=== PATIENT | male | born 1990 | race Caucasian/White ===

== ENCOUNTER 2017-12-26 21:52 | Emergency (ER) | payer OTHER ==
[2017-12-26 22:10] VITALS: TEMP 98.4
[2017-12-26] MEDS ORDERED: IPRATROPIUM-ALBUTEROL 3 ML NEB INHALATION STA (23:02)
[2017-12-26] MEDS ORDERED: methylPREDNISolone SOD SUCCI 125 MG/2 ML VIAL IM ONE (23:02)
--- NOTE | 2017-12-26 23:18 | ED ---
SOB HPI - General Chief Complaint: Shortness of Breath Stated Complaint: SOB Time Seen by Provider: 12/26/17 22:16 Source: patient Mode of arrival: ambulatory Limitations: no limitations - History of Present Illness Initial Comments: 27-year-old male patient with past medical history significant for asthma presents to the emergency department today for evaluation of increased shortness of breath. Patient states that he started having increased wheezing, shortness of breath, and cough yesterday. Patient states that throughout the day today has seemed to have worsened. Patient states he did do 3 nebulizer breathing treatment. The day today did not improve his symptoms much. He denies any fevers or chills with this. Denies any sputum production with his cough. States he does smoke up to a pack a day but has had decreased smoking over the last 2 days. Denies any chest pain, dizziness, weakness, rash, nasal congestion, sore throat, or ear pain. Patient denies any recent abdominal pain , nausea, vomiting, diarrhea, constipation, back pain, numbness, tingling, hematuria, dysuria, urinary urgency, urinary frequency, headache, visual changes , or any other complaints. - Related Data Home Medications Medication Instructions Recorded Confirmed Albuterol Nebulized [Ventolin 2.5 mg INHALATION RT-Q6H PRN 12/26/17 12/26/17 Nebulized] Previous Rx's Medication Instructions Recorded Albuterol Sulfate [Proair Hfa] 1 - 2 puff INHALATION Q6HR PRN #1 12/27/17 inhaler Ipratropium-Albuterol Nebulize 3 ml INHALATION Q4H PRN #30 neb 12/27/17 [Duoneb 0.5 mg-3 mg/3 ml Soln] predniSONE 50 mg PO DAILY #5 tablet 12/27/17 Allergies Allergy/AdvReac Type Severity Reaction Status Date / Time No Known Allergies Allergy Verified 12/26/17 22:17 Review of Systems ROS Statement: Those systems with pertinent positive or pertinent negative responses have been documented in the HPI. ROS Other: All systems not noted in ROS Statement are negative. Past Medical History Past Medical History: Asthma History of Any Multi-Drug Resistant Organisms: None Reported Past Surgical History: No Surgical Hx Reported Past Psychological History: No Psychological Hx Reported Smoking Status: Current every day smoker Past Alcohol Use History: None Reported Past Drug Use History: None Reported General Exam Limitations: no limitations General appearance: alert, in no apparent distress, other (This is a well- developed, well-nourished adult male patient in no acute distress. Vital signs upon presentation are temperature 98.4F, pulse 92, respirations 16, blood pressure 177/101, pulse ox 100% on room air.) Eye exam: Present: normal appearance, PERRL, EOMI. Absent: scleral icterus, conjunctival injection, periorbital swelling ENT exam: Present: normal exam, normal oropharynx, mucous membranes moist Respiratory exam: Present: wheezes (There is diffuse expiratory wheezing to all posterior lung garcia.). Absent: normal lung sounds bilaterally, respiratory distress, rales, rhonchi, stridor Cardiovascular Exam: Present: regular rate, normal rhythm, normal heart sounds. Absent: systolic murmur, diastolic murmur, rubs, gallop, clicks GI/Abdominal exam: Present: soft, normal bowel sounds. Absent: distended, tenderness, guarding, rebound, rigid Neurological exam: Present: alert, oriented X3, CN II-XII intact Psychiatric exam: Present: normal affect, normal mood Skin exam: Present: warm, dry, intact, normal color. Absent: rash Course Vital Signs 12/26/17 12/26/17 12/26/17 22:06 23:17 23:37 Temperature 98.4 F Pulse Rate 92 88 90 Respiratory 16 Rate Blood Pressure 177/101 O2 Sat by Pulse 100 Oximetry 12/27/17 00:17 Temperature Pulse Rate 98 Respiratory 20 Rate Blood Pressure 155/97 O2 Sat by Pulse 99 Oximetry Medical Decision Making - Medical Decision Making 27-year-old male patient with past medical history significant for asthma presented to the emergency department today for evaluation of increased wheezing and shortness of breath since yesterday. Did perform chest x-ray showed no acute cardio pulmonary process. Physical examination did reveal diffuse expiratory wheezing to all posterior lung garcia. Patient is also somewhat hypertensive. Patient did receive albuterol breathing treatment and intramuscular Solu-Medrol here in the department. Upon reevaluation patient symptoms are significantly improved. Blood pressure did decrease to 150s over 90s. He'll be discharged home at this time with prescription for prednisone, albuterol puffer and nebulizer treatments. He does have a nebulizer machine at home which is out of his medication. He is instructed to follow-up with the primary care physician for further evaluation of his blood pressure. [facility] was [facility]. Return parameters discussed in detail. He verbalizes understanding and agrees with this plan. - Radiology Data Radiology results: report reviewed, image reviewed Two-view x-ray of the chest is obtained. Heart mediastinum are normal. Lungs are clear. Diaphragm is normal. Bony thorax is intact. Impression by Dr. Cornelius shows normal chest. Disposition Clinical Impression: Asthma exacerbation Disposition: HOME SELF-CARE Condition: Good Instructions: Asthma (ED), How to Stop Smoking (ED) Additional Instructions: Complete steroid prescription in full. Use nebulizer every 4 hours. Follow up with the primary care physician for recheck in 1-2 days. Avoid smoking. Return immediately for any new, worsening, or concerning symptoms. Prescriptions: Albuterol Sulfate [Proair Hfa] 1 - 2 puff INHALATION Q6HR PRN #1 inhaler PRN Reason: Shortness Of Breath Ipratropium-Albuterol Nebulize [Duoneb 0.5 mg-3 mg/3 ml Soln] 3 ml INHALATION Q4H PRN #30 neb PRN Reason: wheezing/shortness of breath predniSONE 50 mg PO DAILY #5 tablet Is patient prescribed a controlled substance at d/c from ED?: No Referrals: [facility] [NON-STAFF] - 1-2 days Time of Disposition: 00:37
[2017-12-27 00:21] VITALS: BP 155/97; PULSE 98; RESP 20
--- NOTE | 2017-12-27 00:26 | XR ---
EXAMINATION TYPE: XR chest 2V DATE OF EXAM: 12/26/2017 COMPARISON: NONE HISTORY: Chest pain TECHNIQUE: Frontal and lateral views of the chest are obtained. FINDINGS: Heart and mediastinum are normal. Lungs are clear. Diaphragm is normal. Bony thorax is int act. IMPRESSION: Normal chest
== END 2017-12-27 00:45 | disposition home or self-care (01) ==
LOC: EC 21:52
DX: J45.901 Unspecified asthma with (acute) exacerbation (principal); F17.200 Nicotine dependence, unspecified, uncomplicated
CPT/HCPCS: 94640; 71046; 99284; 96372; J2930

== ENCOUNTER 2018-10-30 08:32 | Emergency (ER) | payer BC ==
[2018-10-30 08:55] VITALS: TEMP 98.1
[2018-10-30] MEDS ORDERED: methylPREDNISolone SOD SUCCI 125 MG/2 ML VIAL IM ONE (09:12)
[2018-10-30] MEDS ORDERED: IPRATROPIUM-ALBUTEROL 3 ML NEB INHALATION STA (09:12)
--- NOTE | 2018-10-30 09:40 | XR ---
EXAMINATION TYPE: XR chest 2V DATE OF EXAM: 10/30/2018 COMPARISON: 12/26/2017 TECHNIQUE: PA and lateral views submitted. HISTORY: Cough FINDINGS: The lungs are clear and there is no pneumothorax, pleural effusion, or focal pneumonia. 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 IMPRESSION: 1. No acute process.
--- NOTE | 2018-10-30 10:38 | ED ---
General Adult HPI - General Chief complaint: Upper Respiratory Infection Stated complaint: poss pneumonia Time Seen by Provider: 10/30/18 08:45 Source: patient, RN notes reviewed Mode of arrival: ambulatory Limitations: no limitations - History of Present Illness Initial comments: 28-year-old male with a past medical history of asthma, hepatitis C presents to the emergency determine for a chief complaint of cough. Patient states he has had a cough for about 2 days. States he feels that he is having an asthma exacerbation. Admits to chills 2 days ago but denies any fevers. States he has been doing his breathing treatments at home and has breathing treatment machine as well as inhalers. States he has a history of pneumonia but wants to make s ure he doesn't have asthma. Patient does smoke. Patient has no other complaints at this time including shortness of breath, chest pain, abdominal pain, nausea or vomiting, headache, or visual changes. - Related Data Home Medications Medication Instructions Recorded Confirmed Albuterol Nebulized [Ventolin 2.5 mg INHALATION RT-Q6H PRN 12/26/17 12/26/17 Nebulized] Previous Rx's Medication Instructions Recorded Albuterol Sulfate [Proair Hfa] 1 - 2 puff INHALATION Q6HR PRN #1 12/27/17 inhaler Ipratropium-Albuterol Nebulize 3 ml INHALATION Q4H PRN #30 neb 12/27/17 [Duoneb 0.5 mg-3 mg/3 ml Soln] predniSONE 50 mg PO DAILY #5 tablet 12/27/17 predniSONE 50 mg PO DAILY #5 tablet 10/30/18 Allergies Allergy/AdvReac Type Severity Reaction Status Date / Time No Known Allergies Allergy Verified 10/30/18 08:52 Review of Systems ROS Statement: Those systems with pertinent positive or pertinent negative responses have been documented in the HPI. ROS Other: All systems not noted in ROS Statement are negative. Past Medical History Past Medical History: Asthma Additional Past Medical History / Comment(s): hep c (previous IV drug use.) History of Any Multi-Drug Resistant Organisms: None Reported Past Surgical History: No Surgical Hx Reported Past Psychological History: No Psychological Hx Reported Smoking Status: Current every day smoker Past Alcohol Use History: Occasional Past Drug Use History: None Reported General Exam Limitations: no limitations General appearance: alert, in no apparent distress (No respiratory distress whatsoever) Head exam: Present: atraumatic, normocephalic, normal inspection Eye exam: Present: normal appearance, PERRL, EOMI. Absent: scleral icterus, conjunctival injection, periorbital swelling ENT exam: Present: normal exam, normal oropharynx, mucous membranes moist, normal external ear exam Neck exam: Present: normal inspection, full ROM. Absent: tenderness, meningismus, lymphadenopathy Respiratory exam: Present: wheezes (IN ALL LUNG AGUILAR). Absent: respiratory distress, rales, rhonchi, stridor Cardiovascular Exam: Present: regular rate, normal rhythm, normal heart sounds. Absent: bradycardia, tachycardia, irregular rhythm Neurological exam: Present: alert Course Vital Signs 10/30/18 10/30/18 10/30/18 08:52 08:58 09:31 Temperature 98.1 F Pulse Rate 94 92 Respiratory 18 21 Rate Blood Pressure 150/107 O2 Sat by Pulse 98 Oximetry 10/30/18 09:42 Temperature Pulse Rate 96 Respiratory Rate Blood Pressure O2 Sat by Pulse Oximetry Procedures - Smoking Cessation Time Spent Discussing Smoking Cessation w/Patient (Minutes): 3 Patient Acknowledges Need for Cessation: Yes Medical Decision Making - Medical Decision Making 28-year-old female with a past medical history of asthma presents for shortness of breath and cough 2 days. Vitals are stable. Patient is 98% on room air. Patient is afebrile. On examination patient has wheezing noted in the bilateral lungs. Exam is otherwise unremarkable. Chest x-ray was obtained which showed no acute process. Patient was given IM Solu-Medrol as well as breathing treatment here in the ER. States he is doing somewhat better. At this time patient will be prescribed prednisone for the next several days and will continue his breathing treatments at home. Does state he has medications and in halers filled. Discussed returning here if he has any worsening symptoms. Disposition Clinical Impression: Cough, Asthma exacerbation Disposition: HOME SELF-CARE Condition: Good Instructions (If sedation given, give patient instructions): Asthma (ED) Additional Instructions: Take steroid as directed. Continue breathing treatments at home. Follow up with primary care in 1-2 days. If you have worsening symptoms return to the emergency department. Prescriptions: predniSONE 50 mg PO DAILY #5 tablet Is patient prescribed a controlled substance at d/c from ED?: No Referrals: Merry Pérez MD [Primary Care Provider] - 1-2 days Time of Disposition: 10:36
[2018-10-30 10:45] VITALS: BP 148/96; PULSE 90; RESP 19
== END 2018-10-30 10:44 | disposition home or self-care (01) ==
LOC: EC 08:32
DX: J45.901 Unspecified asthma with (acute) exacerbation (principal); F17.200 Nicotine dependence, unspecified, uncomplicated; B19.20 Unspecified viral hepatitis C without hepatic coma; Z71.6 Tobacco abuse counseling; Z79.51 Long term (current) use of inhaled steroids; Z87.898 Personal history of other specified conditions
CPT/HCPCS: 94640; 71046; 96372; 99283; J2930

== ENCOUNTER 2019-02-07 10:09 | Emergency (ER) | payer BC ==
[2019-02-07 10:18] VITALS: BP 168/107; PULSE 129; RESP 18; TEMP 97.9
[2019-02-07] MEDS ORDERED: oxyCODONE-APAP 7.5-325MG 1 EACH TAB PO STA (10:44)
[2019-02-07] MEDS ORDERED: DIPH,PERTUS(ACELL)TETVAC-LF 0.5 ML VIAL IM ONE (10:44)
--- NOTE | 2019-02-07 10:47 | ED ---
General Adult HPI - General Chief complaint: Fall Stated complaint: fall, rt shoulder pain Time Seen by Provider: 02/07/19 10:22 Source: patient Mode of arrival: ambulatory Limitations: no limitations - History of Present Illness Initial comments: Dictation was produced using [employer] dictation software. please excuse any grammatical, word or spelling errors. Chief Complaint: 28-year-old male presents with right shoulder pain and left- sided chest pain. History of Present Illness: 28-year-old male. Patient was drunk on [employer] when she decided that he wanted to challenge a female and a foot race. Patient reports that during the challenge she tripped and fell causing him to brace his right face. States he landed on his right shoulder and left chest. Since the incident that occurred approximately 36 hours ago he's been having persistent right shoulder pain. Said that she wanted to go to work the next day because he gets both upper extremities to work. Patient does not know when his last tetanus shot was. Denies any numbness or paresthesias to the extremities. Patient reports that he does feel some worsening left anterior chest pain with deep inspiration. The ROS documented in this emergency department record has been reviewed and confirmed by me. Those systems with pertinent positive or negative responses have been documented in the HPI. All other systems are other negative and/or noncontributory. PHYSICAL EXAM: General Impression: Alert and oriented x3, not in acute distress HEENT: Abrasion to the right face, extra-ocular movements intact, pupils equal and reactive to light bilaterally, mucous membranes moist. Cardiovascular: Heart regular rate and rhythm, S1&S2 audible, no murmurs, rubs or gallops Chest: Lungs clear to auscultation bilaterally, no rhonchi, no wheeze, no rales, no palpable crepitus to the left anterior chest Abdomen: Bowel sounds present, abdomen soft, non-tender, non-distended, no organomegaly Musculoskeletal: Pulses present and equal in all extremities, no peripheral edema, able to touch ipsilateral shoulder with right upper extremity Motor: no focal deficits noted Neurological: CN II-XII grossly intact, no focal motor or sensory deficits noted Skin: Intact with no visualized rashes Psych: Normal affect and mood ED course: 28 yo male presents with right shoulder pain and left anterior chest pain after fall. Signs upon arrival shows heart rate of 129, worse vital signs within acceptable limits. Patient did abrasions his head however is not complaining of any neurologic issues. He has no headache. No indication for CT imaging of the brain at this time. Tetanus shot updated. Patient given by mouth analgesics. X-rays were obtained. Shoulder x-ray is unremarkable. Rib x-rays unremarkable. Chest x-ray is unremarkable. Patient given Percocet. Tetanus was updated. Patient also placed and left in patch. Patient given the right upper extremity sling. He is given follow-up with cost specialist for outpatient management of shoulder pain. This point patient's symptoms secondary to shoulder and chest contusion secondary to fall. Repeat heart rate is improved. - Related Data Home Medications Medication Instructions Recorded Confirmed Albuterol Nebulized [Ventolin 2.5 mg INHALATION RT-Q6H PRN 12/26/17 12/26/17 Nebulized] Previous Rx's Medication Instructions Recorded Albuterol Sulfate [Proair Hfa] 1 - 2 puff INHALATION Q6HR PRN #1 12/27/17 inhaler Ipratropium-Albuterol Nebulize 3 ml INHALATION Q4H PRN #30 neb 12/27/17 [Duoneb 0.5 mg-3 mg/3 ml Soln] predniSONE 50 mg PO DAILY #5 tablet 12/27/17 predniSONE 50 mg PO DAILY #5 tablet 10/30/18 Allergies Allergy/AdvReac Type Severity Reaction Status Date / Time No Known Allergies Allergy Verified 10/30/18 08:52 Review of Systems ROS Statement: Those systems with pertinent positive or pertinent negative responses have been documented in the HPI. ROS Other: All systems not noted in ROS Statement are negative. Past Medical History Past Medical History: Asthma Additional Past Medical History / Comment(s): hep c (previous IV drug use.) History of Any Multi-Drug Resistant Organisms: None Reported Past Surgical History: Hernia Repair Past Psychological History: No Psychological Hx Reported Smoking Status: Current every day smoker Past Alcohol Use History: Occasional Past Drug Use History: None Reported General Exam Limitations: no limitations Course Vital Signs 02/07/19 10:13 Temperature 97.9 F Pulse Rate 129 H Respiratory 18 Rate Blood Pressure 168/107 O2 Sat by Pulse 98 Oximetry Disposition Clinical Impression: Fall, Chest wall contusion, Shoulder contusion Disposition: HOME SELF-CARE Condition: Good Instructions (If sedation given, give patient instructions): Shoulder Sprain (ED) Is patient prescribed a controlled substance at d/c from ED?: No Referrals: Reggie Avina MD [STAFF PHYSICIAN] - 1-2 days Time of Disposition: 11:40
--- NOTE | 2019-02-07 11:13 | XR ---
EXAMINATION TYPE: XR chest 2V DATE OF EXAM: 02/07/2019 COMPARISON: 10/30/2018 HISTORY: Chest pain after fall TECHNIQUE: Frontal and lateral views of the chest are obtained. FINDINGS: There is no focal air space opacity, pleural effusion, or pneumothorax seen. The cardiac silhouette size is within normal limits. The osseous structures are grossly intact. IMPRESSION: No acute cardiopulmonary process.
--- NOTE | 2019-02-07 11:16 | XR ---
EXAMINATION TYPE: XR ribs LT DATE OF EXAM: 02/07/2019 COMPARISON: NONE HISTORY: Pain TECHNIQUE: 4 views submitted FINDINGS: There is fusion of the left first and second rib. No acute fracture or dislocation. IMPRESSION: No acute fracture.
--- NOTE | 2019-02-07 11:17 | XR ---
EXAMINATION TYPE: XR shoulder complete RT DATE OF EXAM: 02/07/2019 COMPARISON: NONE HISTORY: Pain TECHNIQUE: Three views are submitted. FINDINGS: The osseous structures are intact. There is no acute fracture or dislocation. The AC joint is maint ained. IMPRESSION: 1. No acute process.
[2019-02-07] MEDS ORDERED: LIDOCAINE 5% PATCH TOPICAL STA (11:33)
== END 2019-02-07 11:56 | disposition home or self-care (01) ==
LOC: EC 10:09
DX: S40.011A Contusion of right shoulder, initial encounter (principal); S20.219A Contusion of unspecified front wall of thorax, initial encounter; S00.91XA Abrasion of unspecified part of head, initial encounter; Z23 Encounter for immunization; J45.909 Unspecified asthma, uncomplicated; F17.200 Nicotine dependence, unspecified, uncomplicated; W01.0XXA Fall on same level from slipping, tripping and stumbling without subsequent striking against object, initial encounter
CPT/HCPCS: 71046; 90471; 90715; 99283

== ENCOUNTER 2019-03-07 10:57 | Emergency (ER) | payer BC ==
[2019-03-07] MEDS ORDERED: methylPREDNISolone SOD SUCCI 125 MG/2 ML VIAL IV STA (11:23)
[2019-03-07] MEDS ORDERED: IPRATROPIUM-ALBUTEROL 3 ML NEB INHALATION STA (11:23)
[2019-03-07] MEDS ORDERED: SODIUM CHLORIDE 0.9% 1,000 ML IV STA (11:24)
--- NOTE | 2019-03-07 11:27 | ED ---
General Adult HPI - General Chief complaint: Chest Pain Stated complaint: SOB/lung pain Time Seen by Provider: 03/07/19 11:05 Source: patient, RN notes reviewed Mode of arrival: ambulatory Limitations: no limitations - History of Present Illness Initial comments: Patient is a pleasant 28-year-old male presenting to emergency Department with complaints of cough and burning in his chest. Patient states he had a fever a couple of days ago. Symptoms started 2-3 days ago. Cough is dry nonproductive. He should states the burning is on the side of his chest. Patient states he usually gets this twice a year associated with his asthma. Patient states there may be some mild dyspnea. No leg pain or leg swelling. - Related Data Home Medications Medication Instructions Recorded Confirmed Albuterol Sulfate [Proair Hfa] 2 puff INHALATION RT-Q6H PRN 03/07/19 03/07/19 Ipratropium-Albuterol Nebulize 3 ml INHALATION RT-Q4H PRN 03/07/19 03/07/19 [Duoneb 0.5 mg-3 mg/3 ml Soln] Previous Rx's Medication Instructions Recorded Oseltamivir [Tamiflu] 75 mg PO Q12HR #10 cap 03/07/19 Allergies Allergy/AdvReac Type Severity Reaction Status Date / Time No Known Allergies Allergy Verified 03/07/19 11:56 Review of Systems ROS Statement: Those systems with pertinent positive or pertinent negative responses have been documented in the HPI. ROS Other: All systems not noted in ROS Statement are negative. Constitutional: Denies: fever Eyes: Denies: eye pain ENT: Denies: ear pain Respiratory: Reports: cough, dyspnea Cardiovascular: Reports: as per HPI Endocrine: Denies: fatigue Gastrointestinal: Denies: abdominal pain Genitourinary: Denies: dysuria Musculoskeletal: Denies: back pain Skin: Denies: rash Neurological: Denies: weakness Past Medical History Past Medical History: Asthma Additional Past Medical History / Comment(s): hep c (previous IV drug use.) History of Any Multi-Drug Resistant Organisms: None Reported Past Surgical History: Hernia Repair Past Psychological History: No Psychological Hx Reported Smoking Status: Current every day smoker Past Alcohol Use History: Occasional Past Drug Use History: None Reported General Exam Limitations: no limitations General appearance: alert, in no apparent distress Eye exam: Present: normal appearance ENT exam: Present: normal oropharynx Neck exam: Present: normal inspection Respiratory exam: Present: wheezes, rhonchi Cardiovascular Exam: Present: normal rhythm, tachycardia GI/Abdominal exam: Present: soft. Absent: tenderness Extremities exam: Present: normal inspection. Absent: pedal edema, calf tenderness Neurological exam: Present: alert Psychiatric exam: Present: normal affect, normal mood Skin exam: Present: normal color Course Vital Signs 03/07/19 03/07/19 03/07/19 11:02 11:28 11:40 Temperature 98.8 F 99.3 F Pulse Rate 122 H Respiratory 20 18 Rate Blood Pressure 155/94 O2 Sat by Pulse 94 L Oximetry 03/07/19 03/07/19 12:00 12:07 Temperature Pulse Rate 105 H 108 H Respiratory 18 18 Rate Blood Pressure O2 Sat by Pulse Oximetry EKG Findings - EKG Comments: EKG Findings:: Sinus tachycardia 110. [place] 136. QRS 78. QT 326. QTc 441. Normal axis. Normal QRS. No acute ST change. Medical Decision Making - Medical Decision Making Patient reevaluated and significantly improved. Patient states his breathing is normal and is comfortable with discharge home. Lung sounds with trace expiratory wheeze. Heart rate 104. Onset of symptoms was less than 48 hours and patient will be prescribed Tamiflu. - Lab Data Result diagrams: 03/07/19 11:17 03/07/19 11:17 Lab Results 03/07/19 03/07/19 03/07/19 Range/Units 11:17 11:17 11:17 WBC 3.7 L (3.8-10.6) k/uL RBC 4.86 (4.30-5.90) m/uL Hgb 16.2 (13.0-17.5) gm/dL Hct 48.1 (39.0-53.0) % MCV 99.2 (80.0-100.0) fL MCH 33.3 (25.0-35.0) pg MCHC 33.6 (31.0-37.0) g/dL RDW 12.3 (11.5-15.5) % Plt Count 111 L (150-450) k/uL Neutrophils % (Manual) 66 % Lymphocytes % (Manual) 21 % Monocytes % (Manual) 11 % Eosinophils % (Manual) 2 % Neutrophils # (Manual) 2.44 (1.3-7.7) k/uL Lymphocytes # (Manual) 0.78 L (1.0-4.8) k/uL Monocytes # (Manual) 0.41 (0-1.0) k/uL Eosinophils # (Manual) 0.07 (0-0.7) k/uL Nucleated RBCs 0 (0-0) /100 WBC Manual Slide Review Performed RBC Morphology Normal PT 9.4 (9.0-12.0) sec INR 0.9 (<1.2) APTT 26.0 (22.0-30.0) sec D-Dimer 0.34 (<0.60) mg/L FEU Sodium 140 (137-145) mmol/L Potassium 4.5 (3.5-5.1) mmol/L Chloride 107 (98-107) mmol/L Carbon Dioxide 20 L (22-30) mmol/L Anion Gap 13 mmol/L BUN 12 (9-20) mg/dL Creatinine 0.74 (0.66-1.25) mg/dL Est GFR (CKD-EPI)AfAm >90 (>60 ml/min/1.73 sqM) Est GFR (CKD-EPI)NonAf >90 (>60 ml/min/1.73 sqM) Glucose 127 H (74-99) mg/dL Plasma Lactic Acid Cuauhtemoc (0.7-2.0) mmol/L Calcium 9.1 (8.4-10.2) mg/dL Total Bilirubin 0.5 (0.2-1.3) mg/dL AST 193 H (17-59) U/L ALT 219 H (4-49) U/L Alkaline Phosphatase 83 (38-126) U/L Troponin I (0.000-0.034) ng/mL Total Protein 7.3 (6.3-8.2) g/dL Albumin 4.4 (3.5-5.0) g/dL Influenza Type A RNA (Not Detectd) Influenza Type B (PCR) (Not Detectd) 03/07/19 03/07/19 03/07/19 Range/Units 11:17 11:17 11:34 WBC (3.8-10.6) k/uL RBC (4.30-5.90) m/uL Hgb (13.0-17.5) gm/dL Hct (39.0-53.0) % MCV (80.0-100.0) fL MCH (25.0-35.0) pg MCHC (31.0-37.0) g/dL RDW (11.5-15.5) % Plt Count (150-450) k/uL Neutrophils % (Manual) % Lymphocytes % (Manual) % Monocytes % (Manual) % Eosinophils % (Manual) % Neutrophils # (Manual) (1.3-7.7) k/uL Lymphocytes # (Manual) (1.0-4.8) k/uL Monocytes # (Manual) (0-1.0) k/uL Eosinophils # (Manual) (0-0.7) k/uL Nucleated RBCs (0-0) /100 WBC Manual Slide Review RBC Morphology PT (9.0-12.0) sec INR (<1.2) APTT (22.0-30.0) sec D-Dimer (<0.60) mg/L FEU Sodium (137-145) mmol/L Potassium (3.5-5.1) mmol/L Chloride (98-107) mmol/L Carbon Dioxide (22-30) mmol/L Anion Gap mmol/L BUN (9-20) mg/dL Creatinine (0.66-1.25) mg/dL Est GFR (CKD-EPI)AfAm (>60 ml/min/1.73 sqM) Est GFR (CKD-EPI)NonAf (>60 ml/min/1.73 sqM) Glucose (74-99) mg/dL Plasma Lactic Acid Cuau[place]emoc 1.4 (0.7-2.0) mmol/L Calcium (8.4-10.2) mg/dL Total Bilirubin (0.2-1.3) mg/dL AST (17-59) U/L ALT (4-49) U/L Alkaline Phosphatase (38-126) U/L Troponin I <0.012 (0.000-0.034) ng/mL Total Protein (6.3-8.2) g/dL Albumin (3.5-5.0) g/dL Influenza Type A RNA Not Detected (Not Detectd) Influenza Type B (PCR) Detected H (Not Detectd) - Radiology Data Radiology results: image reviewed (Chest x-ray shows no acute process) Disposition Clinical Impression: Influenza Disposition: HOME SELF-CARE Condition: Stable Instructions (If sedation given, give patient instructions): Influenza (ED) Additional Instructions: Please continue [id number] Motrin as needed. Please follow-up with primary care physician in the next couple days for recheck. Have primary care physician review lab work done today. Prescription for Tamiflu. Continue never lies or treatments as needed. Return for difficulty in breathing, uncontrolled fevers, weakness, worsening symptoms or other concerns. Your prescription was sent to [facility], please start today. Prescriptions: Oseltamivir [Tamiflu] 75 mg PO Q12HR #10 cap Is patient prescribed a controlled substance at d/c from ED?: No Referrals: Merry Pérez MD [Primary Care Provider] - 1-2 days Time of Disposition: 12:30
[2019-03-07 11:29] VITALS: RESP 18
[2019-03-07 11:40] VITALS: TEMP 99.3
[2019-03-07 11:54] LABS: African American GFR (CKD) >90 (>60 ml/min/1.73 sqM); Anion Gap 13 mmol/L; Blood Urea Nitrogen 12 mg/dL (9-20); Carbon Dioxide 20 mmol/L (22-30); Chloride 107 mmol/L (98-107); Glucose 127 mg/dL (74-99); Potassium 4.5 mmol/L (3.5-5.1); Sodium 140 mmol/L (137-145)
[2019-03-07 11:55] LABS: ALT 219 U/L (4-49); AST 193 U/L (17-59); Albumin 4.4 g/dL (3.5-5.0); Alkaline Phosphatase 83 U/L (38-126); Calcium 9.1 mg/dL (8.4-10.2); Non-African American GFR(CKD) >90 (>60 ml/min/1.73 sqM); Total Bilirubin 0.5 mg/dL (0.2-1.3); Total Protein 7.3 g/dL (6.3-8.2)
[2019-03-07] MEDS ORDERED: ACETAMINOPHEN TAB 500 MG TAB PO STA (12:06)
[2019-03-07] MEDS ORDERED: IBUPROFEN 600 MG TAB PO STA (12:06)
[2019-03-07 12:10] LABS: HCT 48.1 % (39.0-53.0); HGB 16.2 gm/dL (13.0-17.5); MCH 33.3 pg (25.0-35.0); MCHC 33.6 g/dL (31.0-37.0); MCV 99.2 fL (80.0-100.0); Mean Platelet Volume 9.6; Platelet Count 111 k/uL (150-450); RBC 4.86 m/uL (4.30-5.90); RDW 12.3 % (11.5-15.5); WBC 3.7 k/uL (3.8-10.6)
[2019-03-07 12:16] LABS: D-Dimer 0.34 mg/L FEU (<0.60); INR 0.9 (<1.2); Prothrombin Time 9.4 sec (9.0-12.0)
[2019-03-07 12:28] LABS: Eosinophils # (M) 0.07 k/uL (0-0.7); Lymphocytes # (M) 0.78 k/uL (1.0-4.8); Monocytes # (M) 0.41 k/uL (0-1.0); Neutrophils # (M) 2.44 k/uL (1.3-7.7); Neutrophils % (M) 66 %; Nucleated Red Blood Cells 0 /100 WBC (0-0); Total Cells Counted 100
--- NOTE | 2019-03-07 12:37 | XR ---
EXAMINATION TYPE: XR chest 2V DATE OF EXAM: 03/07/2019 COMPARISON: Chest x-ray February 07, 2019 HISTORY: Cough and congestion. TECHNIQUE: Frontal and lateral views of the chest are obtained. FINDINGS: There is no focal air space opacity, pleural effusion, or pneumothorax seen. The cardiac silhouette size is within normal limits. The osseous structures are intact. IMPRESSION: No suspicious acute infiltrate.
[2019-03-07 12:44] VITALS: BP 159/73; PULSE 104
== END 2019-03-07 12:47 | disposition home or self-care (01) ==
LOC: EC 10:57
DX: J11.1 Influenza due to unidentified influenza virus with other respiratory manifestations (principal); F17.200 Nicotine dependence, unspecified, uncomplicated
CPT/HCPCS: 36415; 94640; 93005; 85379; 80053; 83605; 84484; 85025; 85610; 85730; 87502; 71046; 99285; 96374; 96361; J2930

== ENCOUNTER 2019-09-22 13:05 | Inpatient (IN) | payer BC, OTHER ==
[2019-09-22] MEDS ORDERED: IPRATROPIUM-ALBUTEROL 3 ML NEB INHALATION STA ×2 (13:27→16:06)
[2019-09-22 14:08] LABS: ALT 120 U/L (4-49); AST 404 U/L (17-59); African American GFR (CKD) >90 (>60 ml/min/1.73 sqM); Albumin 4.1 g/dL (3.5-5.0); Alkaline Phosphatase 262 U/L (38-126); Anion Gap 13 mmol/L; Blood Urea Nitrogen 3 mg/dL (9-20); Calcium 8.5 mg/dL (8.4-10.2); Carbon Dioxide 22 mmol/L (22-30); Chloride 100 mmol/L (98-107); Glucose 118 mg/dL (74-99); Magnesium 1.8 mg/dL (1.6-2.3); Non-African American GFR(CKD) >90 (>60 ml/min/1.73 sqM); Potassium 3.9 mmol/L (3.5-5.1); Sodium 135 mmol/L (137-145); Total Bilirubin 1.5 mg/dL (0.2-1.3); Total Protein 7.1 g/dL (6.3-8.2)
[2019-09-22 14:09] LABS: Mucus,Urine Occasional /hpf; RBC,Urine 1 /hpf (0-5); WBC,Urine 2 /hpf (0-5)
--- NOTE | 2019-09-22 14:11 | XR ---
EXAMINATION TYPE: XR chest 2V DATE OF EXAM: 09/22/2019 COMPARISON: 03/07/2019 HISTORY: Short of breath TECHNIQUE: FINDINGS: Heart and mediastinum are normal. Lungs are clear. Diaphragm is normal. Bony thorax appears normal. IMPRESSION: Normal chest. No change.
[2019-09-22 14:13] LABS: Partial Thromboplastin Time 30.3 sec (22.0-30.0); Prothrombin Time 10.8 sec (9.0-12.0)
[2019-09-22 14:14] LABS: Basophils # (A) 0.1 k/uL (0-0.2); Basophils % (A) 1 %; Eosinophils # (A) 0.3 k/uL (0-0.7); Eosinophils % (A) 3 %; HCT 44.9 % (39.0-53.0); HGB 14.8 gm/dL (13.0-17.5); Lymphocytes % (A) 9 %; MCH 34.7 pg (25.0-35.0); MCHC 32.9 g/dL (31.0-37.0); MCV 105.5 fL (80.0-100.0); Macrocytosis Moderate; Mean Platelet Volume 8.9; Monocytes # (A) 0.6 k/uL (0-1.0); Monocytes % (A) 6 %; Neutrophils # (A) 8.7 k/uL (1.3-7.7); Neutrophils % (A) 80 %; RBC 4.26 m/uL (4.30-5.90); RDW 13.5 % (11.5-15.5); WBC 10.9 k/uL (3.8-10.6)
--- NOTE | 2019-09-22 14:17 | ED ---
SOB HPI - General Source: patient, RN notes reviewed, old records reviewed Mode of arrival: ambulatory Limitations: no limitations <Yeni Wallace - Last Filed: 09/22/19 14:25> <Shekhar Mckeon - Last Filed: 09/22/19 16:06> - General Chief Complaint: Shortness of Breath Stated Complaint: Edema Time Seen by Provider: 09/22/19 13:22 - History of Present Illness Initial Comments: 29-year-old male presents emergency department today for concern for abdominal swelling and peripheral edema worsening for past 3 days. Patient has a known history of alcohol abuse disorder states he drinks 3-40 beers daily. Patient states he also has a known history of hepatitis C. He states that he is wheezing and slight cough and he is known history of asthma. Patient reports that his right leg seems to be more swollen than his left. Patient is a smoker. Patient denies any nausea or vomiting. Patient states he has had no known history of heart failure. (Yeni Wallace) - Related Data Home Medications Medication Instructions Recorded Confirmed Albuterol Sulfate [Proair Hfa] 2 puff INHALATION RT-Q6H PRN 03/07/19 03/07/19 Ipratropium-Albuterol Nebulize 3 ml INHALATION RT-Q4H PRN 03/07/19 03/07/19 [Duoneb 0.5 mg-3 mg/3 ml Soln] Previous Rx's Medication Instructions Recorded Oseltamivir [Tamiflu] 75 mg PO Q12HR #10 cap 03/07/19 Allergies Allergy/AdvReac Type Severity Reaction Status Date / Time No Known Allergies Allergy Verified 09/22/19 13:11 Review of Systems ROS Other: All systems not noted in ROS Statement are negative. <Yeni Wallace - Last Filed: 09/22/19 14:25> ROS Other: All systems not noted in ROS Statement are negative. <Shekhar Mckeon - Last Filed: 09/22/19 16:06> ROS Statement: Those systems with pertinent positive or pertinent negative responses have been documented in the HPI. Past Medical History Past Medical History: Asthma Additional Past Medical History / Comment(s): hep c (previous IV drug use.) History of Any Multi-Drug Resistant Organisms: None Reported Past Surgical History: Hernia Repair Past Psychological History: No Psychological Hx Reported Smoking Status: Current every day smoker Past Alcohol Use History: Daily Past Drug Use History: Heroin <Yeni Wallace - Last Filed: 09/22/19 14:25> General Exam Limitations: no limitations General appearance: alert, in no apparent distress Head exam: Present: atraumatic, normocephalic, normal inspection Eye exam: Present: normal appearance, PERRL, EOMI. Absent: scleral icterus, conjunctival injection, periorbital swelling ENT exam: Present: normal exam, mucous membranes moist Neck exam: Present: normal inspection. Absent: tenderness, meningismus, l ymphadenopathy Respiratory exam: Present: wheezes. Absent: normal lung sounds bilaterally, respiratory distress, rales, rhonchi, stridor Cardiovascular Exam: Present: regular rate, normal rhythm, normal heart sounds. Absent: systolic murmur, diastolic murmur, rubs, gallop, clicks GI/Abdominal exam: Present: soft, normal bowel sounds. Absent: distended, guarding, rebound, rigid Extremities exam: Present: normal inspection, full ROM, normal capillary refill, other (peripheral edema 2 plus bilaterally). Absent: tenderness, pedal edema, joint swelling, calf tenderness Back exam: Present: normal inspection Neurological exam: Present: alert, oriented X3, CN II-XII intact Psychiatric exam: Present: normal affect Skin exam: Present: warm, dry, intact, normal color. Absent: rash <Yeni Wallace - Last Filed: 09/22/19 14:25> - General Exam Comments Initial Comments: Is a 29-year-old male. Alert and oriented 3. (Yeni Wallace) Course <Shekhar Mckeon - Last Filed: 09/22/19 16:06> Vital Signs 09/22/19 09/22/19 09/22/19 13:11 13:32 13:41 Temperature 98.6 F Pulse Rate 117 H 122 H 121 H Respiratory 22 Rate Blood Pressure 138/77 O2 Sat by Pulse 96 Oximetry 09/22/19 15:00 Temperature Pulse Rate 104 H Respiratory 18 Rate Blood Pressure 138/84 O2 Sat by Pulse 96 Oximetry - Reevaluation(s) Reevaluation #1: 09/22/19 16:05 Medical records reviewed (Shekhar Mckeon) Reevaluation #2: 09/22/19 16:05 Spoke with patient and patient's mother regarding findings, questions answered (Shekhar Mckeon) Reevaluation #3: 09/22/19 16:05 Patient is mildly somnolent but arousable, tachycardic (Shekhar Mckeon) Medical Decision Making - Lab Data Result diagrams: 09/22/19 13:47 09/22/19 13:47 - Radiology Data Radiology results: report reviewed <Yeni Wallace - Last Filed: 09/22/19 14:25> - Lab Data Result diagrams: 09/22/19 13:47 09/22/19 13:47 - Radiology Data Radiology results: report reviewed (Chest x-rays negative for acute disease), image reviewed <Shekhar Mckeon - Last Filed: 09/22/19 16:06> - Medical Decision Making 29 year old male with lower extremity edema, difficulty breathing. Patient has wheezing was given IV solumerol and duoneb. Patient has no history of alcohol abuse was drinking prior to arrival. Posterior 34. Patient does have 2+ pitting edema/70. I view patient's chest x-ray which is normal. He has reports of improvement after albuterol. Patient case was transferred to Dr. Mckeon pending further labs at 2:24 PM. (Yeni Wallace) 29 male DF for evaluation shortness of breath significant edema, anasarca likely malnutrition and low protein. Patient will be admitted for some diuresis breathing treatments and alcohol intoxication (Shekhar Mckeon) - Lab Data Lab Results 09/22/19 09/22/19 09/22/19 Range/Units 13:47 13:47 13:47 WBC 10.9 H (3.8-10.6) k/uL RBC 4.26 L (4.30-5.90) m/uL Hgb 14.8 (13.0-17.5) gm/dL Hct 44.9 (39.0-53.0) % MCV 105.5 H (80.0-100.0) fL MCH 34.7 (25.0-35.0) pg MCHC 32.9 (31.0-37.0) g/dL RDW 13.5 (11.5-15.5) % Plt Count 80 L (150-450) k/uL Neutrophils % 80 % Lymphocytes % 9 % Monocytes % 6 % Eosinophils % 3 % Basophils % 1 % Neutrophils # 8.7 H (1.3-7.7) k/uL Lymphocytes # 1.0 (1.0-4.8) k/uL Monocytes # 0.6 (0-1.0) k/uL Eosinophils # 0.3 (0-0.7) k/uL Basophils # 0.1 (0-0.2) k/uL Macrocytosis Moderate PT 10.8 (9.0-12.0) sec INR 1.0 (<1.2) APTT 30.3 H (22.0-30.0) sec Sodium (137-145) mmol/L Potassium (3.5-5.1) mmol/L Chloride (98-107) mmol/L Carbon Dioxide (22-30) mmol/L Anion Gap mmol/L BUN (9-20) mg/dL Creatinine (0.66-1.25) mg/dL Est GFR (CKD-EPI)AfAm (>60 ml/min/1.73 sqM) Est GFR (CKD-EPI)NonAf (>60 ml/min/1.73 sqM) Glucose (74-99) mg/dL Plasma Lactic Acid Cuauhtemoc (0.7-2.0) mmol/L Calcium (8.4-10.2) mg/dL Magnesium (1.6-2.3) mg/dL Total Bilirubin (0.2-1.3) mg/dL AST (17-59) U/L ALT (4-49) U/L Alkaline Phosphatase (38-126) U/L Troponin I (0.000-0.034) ng/mL NT-Pro-B Natriuret Pep pg/mL Total Protein (6.3-8.2) g/dL Albumin (3.5-5.0) g/dL Urine Color Yellow Urine Appearance Clear (Clear) Urine pH 6.0 (5.0-8.0) Ur Specific [place] 1.015 (1.001-1.035) Urine Protein 1+ (Negative) Ur Protein Confirm RN CVICU Urine Glucose (UA) Negative (Negative) Urine Ketones Negative (Negative) Urine Blood Negative (Negative) Urine Nitrite Negative (Negative) Urine Bilirubin Negative (Negative) Urine Urobilinogen 2.0 (<2.0) mg/dL Ur Leukocyte Esterase Negative (Negative) Urine RBC 1 (0-5) /hpf Urine WBC 2 (0-5) /hpf Urine Mucus Occasional H (None) /hpf Serum Alcohol mg/dL 09/22/19 09/22/19 09/22/19 Range/Units 13:47 13:47 13:47 WBC (3.8-10.6) k/uL RBC (4.30-5.90) m/uL Hgb (13.0-17.5) gm/dL Hct (39.0-53.0) % MCV (80.0-100.0) fL MCH (25.0-35.0) pg MCHC (31.0-37.0) g/dL RDW (11.5-15.5) % Plt Count (150-450) k/uL Neutrophils % % Lymphocytes % % Monocytes % % Eosinophils % % Basophils % % Neutrophils # (1.3-7.7) k/uL Lymphocytes # (1.0-4.8) k/uL Monocytes # (0-1.0) k/uL Eosinophils # (0-0.7) k/uL Basophils # (0-0.2) k/uL Macrocytosis PT (9.0-12.0) sec INR (<1.2) APTT (22.0-30.0) sec Sodium 135 L (137-145) mmol/L Potassium 3.9 (3.5-5.1) mmol/L Chloride 100 (98-107) mmol/L Carbon Dioxide 22 (22-30) mmol/L Anion Gap 13 mmol/L BUN 3 L (9-20) mg/dL Creatinine 0.46 L (0.66-1.25) mg/dL Est GFR (CKD-EPI)AfAm >90 (>60 ml/min/1.73 sqM) Est GFR (CKD-EPI)NonAf >90 (>60 ml/min/1.73 sqM) Glucose 118 H (74-99) mg/dL Plasma Lactic Acid Cuau[place]em[place] 1.3 (0.7-2.0) mmol/L Calcium 8.5 (8.4-10.2) mg/dL Magnesium 1.8 (1.6-2.3) mg/dL Total Bilirubin 1.5 H (0.2-1.3) mg/dL AST 404 H (17-59) U/L ALT 120 H (4-49) U/L Alkaline Phosphatase 262 H (38-126) U/L Troponin I 0.012 (0.000-0.034) ng/mL NT-Pro-B Natriuret Pep pg/mL Total Protein 7.1 (6.3-8.2) g/dL Albumin 4.1 (3.5-5.0) g/dL Urine Color Urine Appearance (Clear) Urine pH (5.0-8.0) Ur Specific [place] (1.001-1.035) Urine Protein (Negative) Ur Protein Confirm Urine Glucose (UA) (Negative) Urine Ketones (Negative) Urine Blood (Negative) Urine Nitrite (Negative) Urine Bilirubin (Negative) Urine Urobilinogen (<2.0) mg/dL Ur Leukocyte Esterase (Negative) Urine RBC (0-5) /hpf Urine WBC (0-5) /hpf Urine Mucus (None) /hpf Serum Alcohol 234 H* mg/dL 09/22/19 Range/Units 13:47 WBC (3.8-10.6) k/uL RBC (4.30-5.90) m/uL Hgb (13.0-17.5) gm/dL Hct (39.0-53.0) % MCV (80.0-100.0) fL MCH (25.0-35.0) pg MCHC (31.0-37.0) g/dL RDW (11.5-15.5) % Plt Count (150-450) k/uL Neutrophils % % Lymphocytes % % Monocytes % % Eosinophils % % Basophils % % Neutrophils # (1.3-7.7) k/uL Lymphocytes # (1.0-4.8) k/uL Monocytes # (0-1.0) k/uL Eosinophils # (0-0.7) k/uL Basophils # (0-0.2) k/uL Macrocytosis PT (9.0-12.0) sec INR (<1.2) APTT (22.0-30.0) sec Sodium (137-145) mmol/L Potassium (3.5-5.1) mmol/L Chloride (98-107) mmol/L Carbon Dioxide (22-30) mmol/L Anion Gap mmol/L BUN (9-20) mg/dL Creatinine (0.66-1.25) mg/dL Est GFR (CKD-EPI)AfAm (>60 ml/min/1.73 sqM) Est GFR (CKD-EPI)NonAf (>60 ml/min/1.73 sqM) Glucose (74-99) mg/dL Plasma Lactic Acid Cuau[place] (0.7-2.0) mmol/L Calcium (8.4-10.2) mg/dL Magnesium (1.6-2.3) mg/dL Total Bilirubin (0.2-1.3) mg/dL AST (17-59) U/L ALT (4-49) U/L Alkaline Phosphatase (38-126) U/L Troponin I (0.000-0.034) ng/mL NT-Pro-B Natriuret Pep 36 pg/mL Total Protein (6.3-8.2) g/dL Albumin (3.5-5.0) g/dL Urine Color Urine Appearance (Clear) Urine pH (5.0-8.0) Ur Specific [place] (1.001-1.035) Urine Protein (Negative) Ur Protein Confirm Urine Glucose (UA) (Negative) Urine Ketones (Negative) Urine Blood (Negative) Urine Nitrite (Negative) Urine Bilirubin (Negative) Urine Urobilinogen (<2.0) mg/dL Ur Leukocyte Esterase (Negative) Urine RBC (0-5) /hpf Urine WBC (0-5) /hpf Urine Mucus (None) /hpf Serum Alcohol mg/dL 09/22/19 14:16 EKG shows sinus tachycardia with premature supraventricular compresses. Septal infarct age undetermined. Abnormal EKG. Ventricular rate of 119 ms. QRS duration is 136 ms. QS duration 78 ms. QT QTc is 332/467 ms. (Yeni Wallace) - Radiology Data Normal chest. No changes. (Yeni Wallace) Disposition <Yeni Wallace - Last Filed: 09/22/19 14:25> Is patient prescribed a controlled substance at d/c from ED?: No <Shekhar Mckeon - Last Filed: 09/22/19 16:06> Clinical Impression: Anasarca, Alcohol intoxication, Alcoholism, Obesity, Asthma with acute exacerbation Disposition: ADMITTED IP TO THIS HOSP Condition: Good Referrals: Merry Pérez MD [Primary Care Provider] - 1-2 days
[2019-09-22 14:18] LABS: Alcohol 234 mg/dL
[2019-09-22] MEDS ORDERED: methylPREDNISolone SOD SUCCI 125 MG/2 ML VIAL IV STA (14:19)
[2019-09-22 14:20] LABS: Appearance,Urine Clear (Clear); Color,Urine Yellow; Protein,Urine 1+ (Negative); Specific Gravity,Urine 1.015 (1.001-1.035)
[2019-09-22 14:21] LABS: Bilirubin,Urine Negative (Negative); Blood,Urine Negative (Negative); Glucose,Urine (UA) Negative (Negative); Ketones,Urine Negative (Negative); Leukocyte Esterase,Urine Negative (Negative); Nitrite,Urine Negative (Negative)
[2019-09-22 15:12] LABS: Platelet Count 80 k/uL (150-450)
[2019-09-22] MEDS ORDERED: THIAMINE 100 MG/ML 2 ML VIAL IM STA (16:03)
[2019-09-22] MEDS ORDERED: LORazepam 2 MG/ML INJ IV PRN ×2 (16:03)
[2019-09-22] MEDS ORDERED: FUROSEMIDE 10 MG/ML 4 ML VIAL IV SCH (16:15)
[2019-09-22] MEDS ORDERED: ALBUTEROL HFA INHALER INHALATION PRN (18:36)
[2019-09-22] MEDS ORDERED: HYDROmorphone 0.5 MG/0.5 ML SYRINGE IVP PRN (18:38)
[2019-09-22] MEDS: IPRATROPIUM-ALBUTEROL 3 ML NEB INHALATION SCH ×2 (19:30→23:39)
[2019-09-22] MEDS: methylPREDNISolone SOD SUCCI 125 MG/2 ML VIAL IV SCH (19:59)
[2019-09-22] MEDS: THIAMINE 100 MG TAB PO SCH (19:59)
[2019-09-22] MEDS: HEPARIN SODIUM,PORCINE 5,000 UNIT/ML 1 ML VIAL SQ SCH (20:00)
[2019-09-23] MEDS: methylPREDNISolone SOD SUCCI 125 MG/2 ML VIAL IV SCH ×3 (00:45→11:55)
--- NOTE | 2019-09-23 01:22 | HP ---
HISTORY AND PHYSICAL DATE OF SERVICE: 09/22/2019 CHIEF COMPLAINT: Shortness of breath and bilateral leg edema. HISTORY OF PRESENT ILLNESS: This 29-year-old gentleman with a past medical history of history of asthma, history of hepatitis C, history of previous IV drug user, history of hernia repair, history of nicotine dependence, history of daily alcohol use, history of heroin abuse in the remote past being followed Dr. Merry Pérez in the outpatient setting was complaining of bilateral leg swelling and as well as significant abdominal distention, shortness of breath. The patient came to [facility] and admitted for further evaluation and treatment. There is no history of fever or rigors. No history of headache, loss of consciousness or seizures at this time. PAST MEDICAL HISTORY: History of asthma, hepatitis C, hernia repair, history of nicotine dependence. MEDICATIONS: Medications prior to admission, home medications are: 1. DuoNeb q.6 p.r.n. 2. ProAir q.6 p.r.n. ALLERGIES: None. FAMILY HISTORY: No history of heart disease or strokes. SOCIAL HISTORY: History of smoking, daily alcohol, a pint of alcohol. Last drink was last night and IV heroin abuse in the past. REVIEW OF SYSTEMS: ENT: No diminished hearing or diminished vision. CARDIOVASCULAR SYSTEM: No angina. RESPIRATORY SYSTEM: As mentioned earlier. GI: As mentioned earlier. : No dysuria. NERVOUS SYSTEM: No numbness or weakness. ALLERGY/IMMUNOLOGY: Asthma, hayfever. MUSCULOSKELETAL: As mentioned earlier. HEMATOLOGY: No history of anemia. ENDOCRINE: No history of diabetes or hypothyroidism. CONSTITUTIONAL: As mentioned earlier. DERMATOLOGY: Negative. RHEUMATOLOGY: Negative. PSYCHIATRY: As mentioned earlier. PHYSICAL EXAMINATION: The patient is alert and oriented x3. Pulse 108, blood pressure 138/82, respiration 18, temperature 98.1, pulse ox 98% on room air. HEENT: Conjunctivae normal. Oral mucosa moist. NECK: Obese. CARDIOVASCULAR: S1, S2 muffled. No S3, no S4. RESPIRATORY: Breath sounds diminished at the bases. A few scattered rhonchi and crackles. ABDOMEN: Soft, obese. Abdominal striae present. LEGS: Bilateral leg edema, petechiae present. Pitting edema present. NERVOUS SYSTEM: Higher function as mentioned. Moves all 4 limbs. No focal motor or sensory deficit. LYMPHATICS: No lymphadenopathy of the neck, axillae or groin. SKIN: No ulcer, rash or bleeding. JOINTS: No active deforming arthropathy. LABS: WBC 10.9, hemoglobin 14.8, sodium 135, potassium 3.9. LFTs are noted. ASSESSMENT: 1. Generalized anasarca, shortness of breath possibly alcohol induced chronic liver disease and cirrhosis of the liver. 2. Rule out congestive heart failure. 3. Acute bronchial asthma acute exacerbation. 4. Hyponatremia. 5. Acute alcohol intoxication. 6. Increased WBC possibly reactive. 7. Increased MCV. 8. Thrombocytopenia. 9. Acute alcoholic hepatitis with elevated bilirubin, AST, ALT. 10.Super morbid obesity with body mass index of 41.6. 11.History of hepatitis C. 12.History of previous intravenous drug abuse heroin. 13.History of nicotine dependence, continued ongoing. 14.History of hernia repair. RECOMMENDATIONS AND DISCUSSION: This 29-year-old gentleman who presented with multiple complex medical issues, we will monitor the patient closely. Continue the current medications, continues symptomatic treatment. I would recommend bronchodilators and IV steroids and also Protonix. Recommend cardiology and gastroenterology consultations, a 2D echo with Doppler, ultrasound of the abdomen. BNP is normal but however we will continue to monitor. I would also recommend acute hepatitis panel to evaluate hepatitis C status. Prognosis guarded because of multiple complex medical issues and discussed with the patient, understands and agrees. A copy of dictation forwarded to Dr. Merry Pérez who is the primary physician. MMRASHAUN / BYRONN: [id number] /
[2019-09-23] MEDS: IPRATROPIUM-ALBUTEROL 3 ML NEB INHALATION SCH ×5 (03:31→19:23)
[2019-09-23 06:21] LABS: Glucose,Whole Blood 143 mg/dL (75-99)
[2019-09-23] MEDS: INSULIN ASPART (NovoLOG) 100 UNIT/ML VIAL SQ SCH ×4 (06:25→21:57)
[2019-09-23 06:41] LABS: Basophils % (A) 0 %; Eosinophils % (A) 0 %; HGB 14.3 gm/dL (13.0-17.5); Lymphocytes # (A) 0.3 k/uL (1.0-4.8); Lymphocytes % (A) 3 %; MCH 34.1 pg (25.0-35.0); MCHC 32.5 g/dL (31.0-37.0); MCV 104.9 fL (80.0-100.0); Macrocytosis Slight; Mean Platelet Volume 10.1; Monocytes # (A) 0.2 k/uL (0-1.0); Monocytes % (A) 3 %; Neutrophils # (A) 7.8 k/uL (1.3-7.7); Neutrophils % (A) 93 %; RDW 13.4 % (11.5-15.5); WBC 8.4 k/uL (3.8-10.6)
[2019-09-23 06:46] LABS: Platelet Count 61 k/uL (150-450)
[2019-09-23 06:56] LABS: ALT 107 U/L (4-49); AST 287 U/L (17-59); African American GFR (CKD) >90 (>60 ml/min/1.73 sqM); Albumin 4.1 g/dL (3.5-5.0); Alkaline Phosphatase 274 U/L (38-126); Anion Gap 12 mmol/L; Blood Urea Nitrogen 6 mg/dL (9-20); Calcium 9.3 mg/dL (8.4-10.2); Carbon Dioxide 24 mmol/L (22-30); Chloride 97 mmol/L (98-107); Glucose 135 mg/dL (74-99); Non-African American GFR(CKD) >90 (>60 ml/min/1.73 sqM); Potassium 4.2 mmol/L (3.5-5.1); Sodium 133 mmol/L (137-145); Total Bilirubin 2.3 mg/dL (0.2-1.3); Total Protein 7.1 g/dL (6.3-8.2)
--- NOTE | 2019-09-23 08:49 | US ---
EXAMINATION TYPE: US abdomen limited DATE OF EXAM: 09/23/2019 COMPARISON: NONE CLINICAL HISTORY: ascites. Trace to small volume ascites primarily within the right hemiabdomen, and small volume ascites within the left lower quadrant. IMPRESSION: Trace to small volume ascites.
[2019-09-23] MEDS ORDERED: PANTOPRAZOLE 40 MG/10 ML VIAL IVP SCH (09:00)
[2019-09-23] MEDS: HEPARIN SODIUM,PORCINE 5,000 UNIT/ML 1 ML VIAL SQ SCH ×2 (09:31→19:55)
[2019-09-23] MEDS: THIAMINE 100 MG TAB PO SCH ×2 (09:31→17:49)
--- NOTE | 2019-09-23 10:01 | ECHOF ---
Referral Reason:Stroke MEASUREMENTS -------- HEIGHT: 180.3 cm WEIGHT: 128.4 kg BP: RVIDd: 2.0 cm (< 3.3) IVSd: 1.0 cm (0.6 - 1.1) LVIDd: 5.3 cm (3.9 - 5.3) LVPWd: 1.1 cm (0.6 - 1.1) IVSs: 1.3 cm LVIDs: 3.9 cm LVPWs: 1.2 cm IVSd: 0.6 cm (0.6 - 1.1) LVIDd: 5.5 cm (3.9 - 5.3) LVPWd: 1.1 cm (0.6 - 1.1) IVSs: 0.8 cm LVIDs: 3.9 cm LVPWs: 1.7 cm EDV(Teich): 145 ml ESV(Teich): 65 ml EF(Teich): 55 % %FS: 29 % SV(Teich): 80 ml Ao Diam: 2.8 cm (2.0 - 3.7) LA Diam: 2.7 cm (2.7 - 3.8) RAP: 5.00 mmHg RVSP: 13.68 mmHg FINDINGS -------- This was a technically difficult study with suboptimal views. The left ventricular size is normal. Left ventricular wall thickness is normal. Overall left vent ricular systolic function is low-normal with, an EF between 50 - 55 %. The right ventricle is normal in size. The left atrial size is normal. The right atrium was not well visualized. Lumason used Unable to visualize the septum. The aortic valve was not well visualized. The mitral valve was not well visualized. There is trace mitral regurgitation. The tricuspid valve was not well visualized. Trace tricuspid regurgitation present. Right ventric ular systolic pressure is normal at < 35 mmHg. The pulmonic valve was not well visualized. The aortic root size is normal. IVC Not well visulized. There is no pericardial effusion. CONCLUSIONS -------- 1. The left ventricular size is normal. 2. Left ventricular wall thickness is normal. 3. Overall left ventricular systolic function is low-normal with, an EF between 50 - 55 %. 4. There is trace mitral regurgitation. 5. Trace tricuspid regurgitation present. BEET WORKER: Shannan Anthony RDCS
[2019-09-23 11:28] VITALS: BMI 40.7
[2019-09-23] MEDS: FUROSEMIDE 10 MG/ML 4 ML VIAL IV SCH ×2 (11:56→19:55)
[2019-09-23] MEDS: SPIRONOLACTONE 25 MG TAB PO SCH ×2 (11:57→19:55)
[2019-09-23 12:34] LABS: Glucose,Whole Blood 147 mg/dL (75-99)
[2019-09-23] MEDS ORDERED: cloNIDine HCL 0.1 MG TAB PO PRN (12:41)
[2019-09-23] MEDS ORDERED: METOPROLOL SUCCINATE (ER) 25 MG TAB.ER.24H PO SCH (13:00)
--- NOTE | 2019-09-23 13:16 | PN ---
PROGRESS NOTE DATE OF SERVICE: 09/23/2019 This 29-year-old gentleman who was admitted with generalized anasarca, shortness of breath, possibly alcohol induced chronic liver disease, being closely monitored at this time. Patient still has some significant edema. Abdominal ultrasound showed only minimal ascites. No chest pain. No palpitations. Two-D echo showed normal ejection fraction. The BNP is normal. PHYSICAL EXAMINATION: Alert and oriented x2. Pulse is 118, blood pressure 120/74, respiration 16, temperature 98.4, pulse ox 94% on room air. HEENT: Conjunctivae normal. NECK: No JVD. CARDIOVASCULAR: S1, S2 muffled. RESPIRATION: Breath sounds diminished in the bases. A few scattered rhonchi. No crackles. ABDOMEN: Soft, obese, nontender. LEGS are no edema. No swelling. NERVOUS SYSTEM: No focal deficits. LABS: WBC 8.2, hemoglobin 14.3 and sodium is 133. Bilirubin is 2.3 and AST is 287, ALT is 107. ASSESSMENT: 1. Illness anasarca, shortness of breath, possibly alcohol induced chronic liver disease and cirrhosis of the liver. 2. Congestive heart failure unlikely. 3. Acute bronchial asthma, acute exacerbation. 4. Hyponatremia. 5. Acute alcohol intoxication. 6. Increased WBC possibly reactive. 7. Possible acute alcoholic hepatitis. 8. Increased MCV. 9. Thrombocytopenia. 10.Elevated bilirubin, AST/ALT secondary to alcoholic hepatitis. 11.Super morbid obesity with body mass index of 41.6. 12.History hepatitis C. 13.History of previous intravenous drug abuse with heroin. 14.History of nicotine dependence continued ongoing. 15.History of hernia repair. 16.Hyponatremia. 17.Increased MCV. RECOMMENDATIONS AND DISCUSSION: In this 29-year-old gentleman who presented with multiple complex medical issues, we will monitor the patient closely. Continue the current medications, symptomatic treatment. Would add a small dose of Lasix. Also add Aldactone. Cut down the dose of steroids add clonidine to the current regimen to control the blood pressure better. Prognosis guarded. Further recommendations to follow. MMODL / IJN: [id number] /
[2019-09-23 13:29] LABS: Hepatitis A Antibody IgM Non-Reactive (Non-Reactive); Hepatitis B Core IgM Non-Reactive (Non-Reactive); Hepatitis B Surface Antigen Non-Reactive (Non-Reactive); Hepatitis C IgG Antibody Reactive (Non-Reactive)
--- NOTE | 2019-09-23 13:30 | P.CRDCN ---
<Carissa Hawkins - Last Filed: 09/23/19 13:27> History of Present Illness Consult date: 09/23/19 Chief complaint: swelling History of present illness: CHIEF COMPLAINT: Swelling, SOB HISTORY OF PRESENT ILLNESS: 29-year-old male with history of asthma and alcohol abuse who presented to the emergency room with a chief complaint of swelling in his lower extremities and his abdomen. Patient also reports feeling short of breath prior to coming to the hospital. Cardiology was consulted for further evaluation. Patient examined this morning at the bedside. He denies any previous cardiac history. He reports his dad at the age of 38 due to cardiac disease. He states his dad had two valve replacements. 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 He currently denies shortness of breath. He denies chest pain. He reports improvement in his lower extremity edema today. He reports drinking beer daily and states he drinks about 3-4 24 oz beers. He also reports smoking cigarettes and smokes about 1 pack per day. DIAGNOSTICS: EKG reveals sinus tachycardia. Heart rate 119. Chest xray negative for acute process Laboratory data: WBC 8.4. Hemoglobin 14.3. Platelet count 61. Sodium 133. Potassium 4.2. BUN 6. Creatinine 0.39. Bilirubin 2.3. AST 287. ALT 107. BNP 36. Patient does not take any cardiac medications on an outpatient basis REVIEW OF SYSTEMS: CONSTITUTIONAL: Denies fever or chills. HEENT: Denies blurred vision, vision changes, or eye pain. Denies hemoptysis CARDIOVASCULAR: Denies chest pain, orthopnea, PND or palpitations. Reports lower extremity edema RESPIRATORY: Reports shortness of breath prior to coming to the hospital. GASTROINTESTINAL: Denies abdominal pain. Denies nausea or vomiting. Reports swelling in his abdomen HEMATOLOGIC: Denies bleeding disorders. GENITOURINARY: Denies any blood in urine. SKIN: Denies pruitis. Denies rash. PHYSICAL EXAM: VITAL SIGNS: Reviewed. GENERAL: Well-developed in no acute distress. HEENT: Head is normocephalic. Pupils are equal, round. Sclerae anicteric. Mucous membranes of the mouth are moist. Neck supple. No JVD or thyromegaly LUNGS: Respirations even and unlabored. Lungs essentially clear to auscultation bilaterally. HEART: Regular rate and rhythm. S1 and S2 heard. ABDOMEN: Soft. Obese. Nontender. EXTREMITIES: Normal range of motion. No clubbing or cyanosis. Peripheral pulses intact. Trace left lower extremity edema. 1-2+ right lower extremity edema. NEUROLOGIC: Awake and alert. Oriented x 3. ASSESSMENT: 1. Anasarca, suspect secondary to liver disease due to ETOH abuse, no evidence of CHF, BNP normal 2. History of asthma 3. Alcohol abuse 4. Nicotine dependence 5. History of hepatitis C 6. Transaminitis 7. Obesity: BMI 40.7 PLAN: -Monitor HR and blood pressure -Echo ordered this morning. Results reveal normal EF -Lasix, Catapres and Aldactone started per medicine -Will add Toprol 25 mg daily Nurse practitioner note has been reviewed by physician. Signing provider agrees with the documented findings, assessment, and plan of care. Past Medical History Past Medical History: Asthma Additional Past Medical History / Comment(s): hep c (previous IV drug use.) History of Any Multi-Drug Resistant Organisms: None Reported Past Surgical History: Hernia Repair Past Anesthesia/Blood Transfusion Reactions: No Reported Reaction Past Psychological History: No Psychological Hx Reported Smoking Status: Current every day smoker Past Alcohol Use History: Daily Past Drug Use History: Heroin - Past Family History Mother Additional Family Medical History / Comment(s): tachycardia Father Family Medical History: Asthma, Coronary Artery Disease (CAD), Diabetes Mellitus Medications and Allergies Home Medications Medication Instructions Recorded Confirmed Type Albuterol Sulfate [Proair Hfa] 2 puff INHALATION RT-Q6H PRN 03/07/19 09/22/19 History Ipratropium-Albuterol Nebulize 3 ml INHALATION RT-Q6H PRN 03/07/19 09/22/19 History [Duoneb 0.5 mg-3 mg/3 ml Soln] Allergies Allergy/AdvReac Type Severity Reaction Status Date / Time No Known Allergies Allergy Verified 09/22/19 16:18 Physical Exam Vitals: Vital Signs Temp Pulse Pulse Resp BP BP Pulse Ox 09/23/19 07:57 96 09/23/19 07:46 100 09/23/19 04:00 98.5 F 124 H 16 175/104 95 09/23/19 03:40 100 09/23/19 03:31 108 H 09/23/19 00:00 98.7 F 114 H 18 171/107 09/22/19 23:51 111 H 18 09/22/19 23:39 111 H 18 09/22/19 19:46 98.3 F 107 H 18 155/93 95 09/22/19 19:43 110 H 09/22/19 19:30 112 H 09/22/19 18:25 98.2 F 117 H 16 148/111 97 09/22/19 17:45 98.3 F 117 H 16 148/111 97 09/22/19 16:40 114 H 09/22/19 16:23 112 H 09/22/19 16:00 98.1 F 108 H 18 138/82 98 09/22/19 15:00 104 H 18 138/84 96 09/22/19 13:41 121 H 09/22/19 13:32 122 H 09/22/19 13:11 98.6 F 117 H 22 138/77 96 Intake and Output 09/22/19 09/23/19 09/23/19 22:59 06:59 14:59 Intake Total 360 480 Balance 360 480 Intake: Oral 360 480 Other: Voiding Method Toilet Toilet # Voids 1 Weight 131.542 kg 128.8 kg Results 09/23/19 05:34 09/23/19 05:34 Cardiac Enzymes 09/22/19 09/22/19 09/23/19 Range/Units 13:47 13:47 05:34 AST 404 H 287 H (17-59) U/L Troponin I 0.012 (0.000-0.034) ng/mL Coagulation 09/22/19 Range/Units 13:47 PT 10.8 (9.0-12.0) sec APTT 30.3 H (22.0-30.0) sec CBC 09/22/19 09/23/19 Range/Units 13:47 05:34 WBC 10.9 H 8.4 (3.8-10.6) k/uL RBC 4.26 L 4.20 L (4.30-5.90) m/uL Hgb 14.8 14.3 (13.0-17.5) gm/dL Hct 44.9 44.0 (39.0-53.0) % Plt Count 80 L 61 L (150-450) k/uL Comprehensive Metabolic Panel 09/22/19 09/23/19 Range/Units 13:47 05:34 Sodium 135 L 133 L (137-145) mmol/L Potassium 3.9 4.2 (3.5-5.1) mmol/L Chloride 100 97 L (98-107) mmol/L Carbon Dioxide 22 24 (22-30) mmol/L BUN 3 L 6 L (9-20) mg/dL Creatinine 0.46 L 0.39 L (0.66-1.25) mg/dL Glucose 118 H 135 H (74-99) mg/dL Calcium 8.5 9.3 (8.4-10.2) mg/dL AST 404 H 287 H (17-59) U/L ALT 120 H 107 H (4-49) U/L Alkaline Phosphatase 262 H 274 H (38-126) U/L Total Protein 7.1 7.1 (6.3-8.2) g/dL Albumin 4.1 4.1 (3.5-5.0) g/dL Current Medications Generic Name Dose Route Start Last Admin Trade Name Freq PRN Reason Stop Dose Admin Albuterol Sulfate 2 puff 09/22/19 18:36 Ventolin Hfa Inhaler INHALATION RT-Q6H PRN Shortness Of Breath Albuterol/Ipratropium 3 ml 09/22/19 20:00 09/23/19 07:46 Duoneb 0.5 Mg-3 Mg/3 Ml Soln INHALATION 3 ml RT-Q4H NOBLE Administration Heparin Sodium (Porcine) 5,000 unit 09/22/19 21:00 09/22/19 20:00 Heparin SQ 5,000 unit Q12HR NOBLE Administration Hydromorphone HCl 0.5 mg 09/22/19 18:38 Dilaudid IVP Q3HR PRN Severe Pain Insulin Aspart 0 unit 09/23/19 07:30 09/23/19 06:25 Novolog SQ 2 unit ACHS NOBLE Administration Protocol Lorazepam 1 mg 09/22/19 16:03 Ativan IV Q2HR PRN CIWA 8 or 9 Lorazepam 1 mg 09/22/19 16:03 09/23/19 04:11 Ativan IV 1 mg Q1HR PRN Administration CIWA 10 to 15 Lorazepam 2 mg 09/22/19 16:03 Ativan IV 09/24/19 16:03 Q10M PRN CIWA 16 or higher Methylprednisolone Sodium Succinate 60 mg 09/22/19 18:30 09/23/19 06:18 Solu-Medrol IV 60 mg Q6HR NOBLE Administration Pantoprazole Sodium 40 mg 09/23/19 09:00 Protonix IVP DAILY NOBLE Thiamine HCl 100 mg 09/22/19 17:30 09/22/19 19:59 Vitamin B-1 PO 100 mg BID-W/MEALS NOBLE Administration Intake and Output 09/22/19 09/23/19 09/23/19 22:59 06:59 14:59 Intake Total 360 480 Balance 360 480 Intake: Oral 360 480 Other: Voiding Method Toilet Toilet # Voids 1 Weight 131.542 kg 128.8 kg 09/23/19 05:34 09/23/19 05:34 <Jose Lassiter - Last Filed: 09/23/19 15:27> History of Present Illness History of present illness: I agree with assessment and plan as above. No evidence of congestive heart failure and congestion likely related to decompensated liver disease with history of hepatitis C. Echo with normal ejection fraction and normal BMP. Discussed need for alcohol cessation with patient. Sinus tachycardia and labile blood pressure likely related to withdrawals with patient withdrawing during exam. Thank you for allowing us to participate in the care of this patient. We will sign off and please call with any questions. Physical Exam Vitals: Vital Signs Temp Pulse Pulse Pulse Resp BP BP 09/23/19 12:04 102 H 09/23/19 11:50 119 H 18 157/107 09/23/19 11:47 118 H 09/23/19 07:57 96 09/23/19 07:50 98.0 F 130 H 130 H 18 168/88 09/23/19 07:46 100 09/23/19 04:00 98.5 F 124 H 16 175/104 09/23/19 03:40 100 09/23/19 03:31 108 H 09/23/19 00:00 98.7 F 114 H 18 171/107 09/22/19 23:51 111 H 18 09/22/19 23:39 111 H 18 09/22/19 19:46 98.3 F 107 H 18 155/93 09/22/19 19:43 110 H 09/22/19 19:30 112 H 09/22/19 18:25 98.2 F 117 H 16 148/111 09/22/19 17:45 98.3 F 117 H 16 148/111 09/22/19 16:40 114 H 09/22/19 16:23 112 H 09/22/19 16:00 98.1 F 108 H 18 138/82 Pulse Ox 09/23/19 12:04 09/23/19 11:50 95 09/23/19 11:47 09/23/19 07:57 09/23/19 07:50 98 09/23/19 07:46 09/23/19 04:00 95 09/23/19 03:40 09/23/19 03:31 09/23/19 00:00 09/22/19 23:51 09/22/19 23:39 09/22/19 19:46 95 09/22/19 19:43 09/22/19 19:30 09/22/19 18:25 97 09/22/19 17:45 97 09/22/19 16:40 09/22/19 16:23 09/22/19 16:00 98 Intake and Output 09/23/19 09/23/19 09/23/19 06:59 14:59 22:59 Intake Total 480 180 Balance 480 180 Intake: Oral 480 180 Other: Voiding Method Toilet # Voids 1 Weight 128.8 kg 128.8 kg Results 09/23/19 05:34 09/23/19 05:34 Cardiac Enzymes 09/23/19 Range/Units 05:34 AST 287 H (17-59) U/L CBC 09/23/19 Range/Units 05:34 WBC 8.4 (3.8-10.6) k/uL RBC 4.20 L (4.30-5.90) m/uL Hgb 14.3 (13.0-17.5) gm/dL Hct 44.0 (39.0-53.0) % Plt Count 61 L (150-450) k/uL Comprehensive Metabolic Panel 09/23/19 Range/Units 05:34 Sodium 133 L (137-145) mmol/L Potassium 4.2 (3.5-5.1) mmol/L Chloride 97 L (98-107) mmol/L Carbon Dioxide 24 (22-30) mmol/L BUN 6 L (9-20) mg/dL Creatinine 0.39 L (0.66-1.25) mg/dL Glucose 135 H (74-99) mg/dL Calcium 9.3 (8.4-10.2) mg/dL AST 287 H (17-59) U/L ALT 107 H (4-49) U/L Alkaline Phosphatase 274 H (38-126) U/L Total Protein 7.1 (6.3-8.2) g/dL Albumin 4.1 (3.5-5.0) g/dL Current Medications Generic Name Dose Route Start Last Admin Trade Name Freq PRN Reason Stop Dose Admin Albuterol Sulfate 2 puff 09/22/19 18:36 Ventolin Hfa Inhaler INHALATION RT-Q6H PRN Shortness Of Breath Albuterol/Ipratropium 3 ml 09/22/19 20:00 09/23/19 11:47 Duoneb 0.5 Mg-3 Mg/3 Ml Soln INHALATION 3 ml RT-Q4H NOBLE Administration Clonidine 0.1 mg 09/23/19 12:41 Catapres PO Q4HR PRN Hypertension Clonidine 0.1 mg 09/23/19 12:45 09/23/19 14:39 Catapres PO 0.1 mg TID NOBLE Administration Folic Acid 1 mg 09/24/19 12:00 Folic Acid PO DAILY@1200 NOBLE Furosemide 40 mg 09/23/19 10:45 09/23/19 11:56 Lasix IV 40 mg Q12HR NOBLE Administration Heparin Sodium (Porcine) 5,000 unit 09/22/19 21:00 09/23/19 09:31 Heparin SQ 5,000 unit Q12HR NOBLE Administration Hydromorphone HCl 0.5 mg 09/22/19 18:38 Dilaudid IVP Q3HR PRN Severe Pain Insulin Aspart 0 unit 09/23/19 07:30 09/23/19 14:38 Novolog SQ 2 unit ACHS NOBLE Administration Protocol Lorazepam 1 mg 09/22/19 16:03 09/23/19 14:40 Ativan IV 1 mg Q2HR PRN Administration CIWA 8 or 9 Lorazepam 1 mg 09/22/19 16:03 09/23/19 04:11 Ativan IV 1 mg Q1HR PRN Administration CIWA 10 to 15 Lorazepam 2 mg 09/22/19 16:03 Ativan IV 09/24/19 16:03 Q10M PRN CIWA 16 or higher Methylprednisolone Sodium Succinate 40 mg 09/23/19 16:00 Solu-Medrol IV Q8HR [facility] Metoprolol Succinate 25 mg 09/23/19 13:00 09/23/19 14:39 Toprol Xl PO 25 mg DAILY [facility] Administration Multivitamins 1 each 09/24/19 12:00 Theragran PO DAILY@1200 NOBLE Pantoprazole Sodium 40 mg 09/23/19 09:00 09/23/19 09:33 Protonix IVP 40 mg DAILY [facility] Administration Spironolactone 50 mg 09/23/19 10:45 09/23/19 11:57 Aldactone PO 50 mg BID [facility] Administration Thiamine HCl 100 mg 09/22/19 17:30 09/23/19 09:31 Vitamin B-1 PO 100 mg BID-W/MEALS [facility] Administration Intake and Output 09/23/19 09/23/19 09/23/19 06:59 14:59 22:59 Intake Total 480 180 Balance 480 180 Intake: Oral 480 180 Other: Voiding Method Toilet # Voids 1 Weight 128.8 kg 128.8 kg Patient Weight 09/24/19 06:59 Weight 128.8 kg 09/23/19 05:34 09/23/19 05:34
[2019-09-23] MEDS: cloNIDine HCL 0.1 MG TAB PO SCH ×3 (14:39→21:57)
[2019-09-23] MEDS: LORazepam 2 MG/ML INJ IV PRN ×2 (14:40→23:00)
[2019-09-23 15:17] VITALS: RESP 18
[2019-09-23 17:09] LABS: Glucose,Whole Blood 137 mg/dL (75-99)
[2019-09-23] MEDS: methylPREDNISolone SOD SUCCI 40 MG/ML 1 ML VIAL IV SCH ×2 (17:49→23:00)
[2019-09-23] MEDS ORDERED: IPRATROPIUM-ALBUTEROL 3 ML NEB INHALATION PRN (20:08)
[2019-09-23 20:25] LABS: Glucose,Whole Blood 178 mg/dL (75-99)
--- NOTE | 2019-09-23 22:38 | CONS ---
CONSULTATION DATE OF DICTATION: 09/23/2019 REASON FOR CONSULTATION: Elevated LFTs and history of chronic hepatitis C infection. HISTORY OF PRESENT ILLNESS: The patient is a 29-year-old white male with history of heavy alcohol abuse and history of chronic hepatitis C infection diagnosed 5 years ago when he went to a rehab program in [place]. He was admitted to the hospital because of abdominal distention and lower extremity swelling and some shortness of breath for the last few weeks' duration. He denies any abdominal pain. He reports no nausea or vomiting. No rectal bleeding or melena. He did have an ultrasound of the abdomen done in the emergency room that showed a small amount of ascites. He is at present on diuretics and feeling somewhat better. He has a history of heavy alcohol abuse for the last several years' duration; drinks a of vodka on a daily basis. PAST MEDICAL HISTORY: His past medical history is significant for heavy alcohol abuse, history of chronic hepatitis C infection diagnosed while in a rehab program in [place] 3 years ago, history of intravenous drug use, which he quit about 4 years ago, history of asthma. MEDICATIONS: Medications at home include DuoNeb, albuterol. ALLERGIES: NONE. SOCIAL HISTORY: Chronic smoker. Heavy alcohol use, as mentioned above. Intravenous drug use; quit 4 years ago. REVIEW OF SYSTEMS: CARDIOPULMONARY: No chest pain or shortness of breath. GENITOURINARY: No dysuria or hematuria. MUSCULOSKELETAL: Unremarkable. SKIN: Unremarkable. ENDOCRINE: Unremarkable. PSYCHIATRIC: Unremarkable. NEUROLOGY: Unremarkable. ENT/VISION: Unremarkable. CONSTITUTIONAL: He gained about 20 pounds in the last 2 months. No fever, chills, night sweats. HEMATOLOGY: Unremarkable. PSYCHIATRY: Unremarkable. PHYSICAL EXAMINATION: He appears comfortable. VITAL SIGNS: Stable. Blood pressure 157/107, pulse rate 119, temperature 98. HEENT examination unremarkable. Conjunctivae pink. Sclerae anicteric. Oral cavity no lesions. NECK: No JVD or lymph node enlargement. CHEST: Clear to auscultation. HEART: Regular rate and rhythm. ABDOMEN: Distended. There was abdominal wall edema noted. It was tense. No organomegaly. EXTREMITIES: Two plus pedal edema bilaterally. NEUROLOGIC: Alert and oriented x3. No focal deficits. LABS: Labs from yesterday showed WBC 10.9, hemoglobin 14.8, platelets 80,000. INR is within normal limits. ALT and AST are 404 and 120, respectively. T-bilirubin 1.5, alkaline phosphatase 262. Repeat labs from today show T-bilirubin 2.3. AST and ALT of 287 and 107, respectively, and alkaline phosphatase 274. Serologies for hepatitis revealed positive hepatitis C antibody. Serum alcohol level is 234. IMPRESSION: 1. Abdominal distention secondary to mild ascites and abdominal wall edema, probably from underlying chronic liver disease. 2. Heavy alcohol abuse. 3. Positive hepatitis C antibody and prior history of chronic hepatitis C infection diagnosed a couple of years ago. He has not seen a jukebox routeman in the past. 4. Elevated liver function tests and slight jaundice, probably related to alcoholic liver disease. Cannot rule out underlying liver cirrhosis. 5. Thrombocytopenia. 6. History of heavy alcohol abuse. RECOMMENDATIONS: 1. Continue with diuretics with Lasix 40 mg twice daily. 2. Increase Aldactone to 50 mg twice daily. 3. Low-salt diet. 4. Obtain hepatitis C viral RNA as well as genotype. 5. Repeat labs in the morning. 6. Abstinence from alcohol. 7. Will follow with you closely. Thank you for this consultation. MMODL / IJN: [id number] /
[2019-09-23 23:41] VITALS: TEMP 98.2
[2019-09-23 23:45] VITALS: BP 128/83; PULSE 105
[2019-09-24] MEDS ORDERED: IPRATROPIUM-ALBUTEROL 3 ML NEB INHALATION SCH (08:00)
[2019-09-24] MEDS ORDERED: FOLIC ACID 1 MG TAB PO SCH (12:00)
[2019-09-24] MEDS ORDERED: MULTIVITAMINS, THERA 1 EACH TAB PO SCH (12:00)
--- NOTE | 2019-09-24 15:11 | CDI ---
Documentation Clarification Form Date: 09/24/2019 02:49:10 PM From: Mara Machado RN, CCDS Admit Date: 09/22/2019 04:03:00 PM Patient Name: Douglas Chambers Visit Number: [id number] Discharge Date: 09/24/2019 05:16:00 AM ATTENTION: The Clinical Documentation Specialists (CDI) and [facility] Coding Staff appreciate your assistance in clarifying documentation. Please respond to the clarification below the line at the bottom and electronically sign. The CDI & [facility] Coding staff will review the response and follow-up if needed. Please note: Queries are made part of the Legal Health Record. If you have any questions, please contact the author of this message via ITS. Dr. Leyla Spivey Acute bronchial asthma exacerbation is documented in the H/P and subsequent progress notes. Please clarify the severity of the asthma if known. History/risk factors: Asthma, Cirrhosis of the Liver, Alcoholic Hepatitis, Hepatitis C, Alcohol abuse, (previous IV drug use) Current every day smoker Clinical Indicators: 29-year-old male who present to ED on 09/21 with complaints of abdominal swelling peripheral edema. He was complaining of wheezing and slight and has a known history of asthma. 8.16 at 13:11 vital signs: 138/77 117 22 98.6 96 % RA 09/21 Chest x-ray: Normal chest, No change Treatment: Monitor O2 Sat's Ventolin Inhaler 2 puff q 6 prn, Duoneb 0.5 mg-3 mg/3ml taina q4 hrs prn Lasix 40 mg IV q8 hrs 09/21, change to q 12 hrs 09/22 Solu-Medrol 125 m IV Once STA, then 60 mg IV q 6 hrs (taper) Aldactone 50 mg po bid In your professional opinion, can you please further specify severity of the following, if known? Acute Bronchial Asthma Exacerbation with: Severity Mild intermittent Mild persistent Moderate persistent Severe persistent Other, please specify ____ Unable to determine Form or Type Cough variant Childhood Exercise induced bronchospasm Extrinsic allergic Idiosyncratic Intrinsic nonallergic Late-onset Mixed Other, please specify____ Unable to determine (Last Revision: May 2017) Mild intermittent Extrinsic allergic MTDD
--- NOTE | 2019-09-26 03:40 | DS ---
DISCHARGE SUMMARY DATE OF SERVICE: 09/24/2019 FINAL DIAGNOSES: 1. Generalized anasarca, shortness of breath, possibly alcohol induced chronic liver disease and cirrhosis of the liver. 2. Congestive heart failure unlikely, ruled out. 3. Acute bronchial asthma, acute exacerbation. 4. Hyponatremia. 5. Acute alcohol intoxication. 6. Increased WBC, possibly reactive. 7. Possible acute alcoholic hepatitis. 8. Increased MCV. 9. Thrombocytopenia. 10.Elevated bilirubin AST, ALT secondary to alcoholic hepatitis. 11.Super morbid obesity with body mass index of 41.6. 12.History of hepatitis C. 13.History of previous intravenous drug abuse with heroin. 14.History of nicotine dependence, continued ongoing. 15.History of hernia repair. DISCHARGE DISPOSITION: The patient left the hospital AGAINST MEDICAL ADVICE. HISTORY OF PRESENT ILLNESS: This 29-year-old gentleman admitted with multiple medical issues. Cardiology was consulted. Patient being closely monitored. ongoing, but however the patient left the hospital AGAINST MEDICAL ADVICE. Prognosis remains extremely guarded throughout the hospitalization. The patient was seen by Gastroenterology also. See progress notes and history and physical and consultations for further information. MMODL / IJN: [id number] / MTDD
[2019-09-26 14:05] LABS: HCV Qualitative Result DETECTED (Not detected); HCV Quant Log 5.28 (<1.08)
== END 2019-09-24 05:16 | disposition home or self-care (01) | DRG 433 ==
LOC: EC 13:05 → 3SCARD 16:03
PROVIDERS: ADMIT Hospitalist; ATTEND Hospitalist
DX: K70.31 Alcoholic cirrhosis of liver with ascites (principal); Z68.41 Body mass index [BMI] 40.0-44.9, adult; E87.1 Hypo-osmolality and hyponatremia; J45.901 Unspecified asthma with (acute) exacerbation; B18.2 Chronic viral hepatitis C; E66.01 Morbid (severe) obesity due to excess calories; D69.6 Thrombocytopenia, unspecified; F17.210 Nicotine dependence, cigarettes, uncomplicated; F10.229 Alcohol dependence with intoxication, unspecified; K70.11 Alcoholic hepatitis with ascites; Z79.899 Other long term (current) drug therapy; Z98.890 Other specified postprocedural states; Z82.5 Family history of asthma and other chronic lower respiratory diseases; Z83.3 Family history of diabetes mellitus; Z82.49 Family history of ischemic heart disease and other diseases of the circulatory system
CPT/HCPCS: 36415; 71046; 76705; 80053; 80074; 80320; 81001; 83605; 83735; 83880; 84484; 85025; 85610; 85730; 87522; 93005; 93306; 94640; 96372; 96374; 99285

== ENCOUNTER → 2019-11-18 | Outpatient (CLI) | payer OTHER ==
[2019-11-18 14:27] LABS: Basophils # (A) 0.1 k/uL (0-0.2); Basophils % (A) 2 %; Eosinophils # (A) 0.4 k/uL (0-0.7); Eosinophils % (A) 6 %; HCT 51.3 % (39.0-53.0); Lymphocytes # (A) 1.1 k/uL (1.0-4.8); Lymphocytes % (A) 16 %; MCH 34.8 pg (25.0-35.0); MCHC 33.1 g/dL (31.0-37.0); Macrocytosis Slight; Monocytes # (A) 0.5 k/uL (0-1.0); Monocytes % (A) 8 %; Neutrophils # (A) 4.6 k/uL (1.3-7.7); Neutrophils % (A) 66 %; RBC 4.88 m/uL (4.30-5.90); RDW 13.4 % (11.5-15.5); WBC 6.9 k/uL (3.8-10.6)
[2019-11-18 14:46] LABS: Platelet Count 123 k/uL (150-450)
== END | disposition home or self-care (01) ==
LOC: LABPAT 12:51
PROVIDERS: ATTEND Surgery
DX: Z01.818 Encounter for other preprocedural examination (principal); K43.0 Incisional hernia with obstruction, without gangrene
CPT/HCPCS: 36415; 85025

== ENCOUNTER 2019-11-19 07:18 | Inpatient (IN) | payer BC, OTHER ==
[2019-11-14 11:04] VITALS: BMI 37.6
[~2019-11-19 07:18] MED LIST: ACETAMINOPHEN TAB 500 MG TAB PO ONE; DEXAMETHASONE SOD PHOSPHATE 10 MG/ML 1 ML VIAL IV ONE; HEPARIN SODIUM,PORCINE 5,000 UNIT/ML 1 ML VIAL SQ ONE; HYDROmorphone 0.5 MG/0.5 ML SYRINGE IVP PRN; LACTATED RINGERS 1,000 ML IV SCH; LIDOCAINE 1% (10MG/ML) FOR IV START INTRADERMA PRN; MIDAZOLAM 2 MG/2 ML VIAL IV PRN; ONDANSETRON 4 MG/2 ML VIAL IVP ONE
[2019-11-19] MEDS ORDERED: MIDAZOLAM 2 MG/2 ML VIAL IVP ONE (08:50)
--- NOTE | 2019-11-19 08:52 | P.GSHP ---
History of Present Illness H&P Date: 11/19/19 Chief Complaint: Ventral/incisional hernia Is a 29-year-old male has developed a ventral/incisional hernia located above the umbilicus. He presents today for repair. Past Medical History Past Medical History: Asthma, Liver Disease Additional Past Medical History / Comment(s): hep c (previous IV drug use.). HERNIA. GENERALIZED EDEMA-MOSTLY BLE History of Any Multi-Drug Resistant Organisms: None Reported Past Surgical History: Hernia Repair Past Anesthesia/Blood Transfusion Reactions: No Reported Reaction Smoking Status: Current every day smoker - Past Family History Mother Additional Family Medical History / Comment(s): tachycardia Father Family Medical History: Asthma, Coronary Artery Disease (CAD), Diabetes Mellitus Medications and Allergies Home Medications Medication Instructions Recorded Confirmed Type Albuterol Sulfate [Proair Hfa] 2 puff INHALATION RT-Q6H PRN 03/07/19 11/19/19 History Ipratropium-Albuterol Nebulize 3 ml INHALATION RT-Q6H PRN 03/07/19 11/19/19 History [Duoneb 0.5 mg-3 mg/3 ml Soln] Allergies Allergy/AdvReac Type Severity Reaction Status Date / Time No Known Allergies Allergy Verified 11/19/19 07:59 Surgical - Exam Vital Signs Temp Pulse Resp BP Pulse Ox 97.3 F L 111 H 16 132/78 95 11/19/19 08:01 11/19/19 08:01 11/19/19 08:01 11/19/19 08:01 11/19/19 08:01 - General well developed, well nourished, no distress - Eyes PERRL - ENT normal pinna - Neck no masses - Respiratory normal expansion - Cardiovascular Rhythm: regular - Abdomen Abdomen: soft, non tender Hernia: incisional (3 cm) Assessment and Plan Assessment: Ventral/incisional hernia located umbilicus. She'll undergo laparoscopic robotic-assisted repair.
[2019-11-19] MEDS ORDERED: PROPOFOL 10 MG/ML 20 ML VIAL IV ONE (09:00)
[2019-11-19] MEDS ORDERED: SUCCINYLCHOLINE CHLORIDE VIAL 200 MG/10 ML VIAL IV ONE (09:00)
[2019-11-19] MEDS ORDERED: LIDOCAINE 1% INJ 10MG/ML (20 ML MDV) ONE (09:00)
[2019-11-19] MEDS ORDERED: ROCURONIUM 10 MG/ML (10 ML VIAL) IV ONE (09:00)
[2019-11-19] MEDS ORDERED: KETOROLAC 15 MG/ML 1 ML VIAL ONE (09:00)
[2019-11-19] MEDS ORDERED: MIDAZOLAM 2 MG/2 ML VIAL ONE (09:00)
[2019-11-19] MEDS ORDERED: GLYCOPYRROLATE 0.2 MG/ML 2 ML VIAL ONE (09:00)
[2019-11-19] MEDS ORDERED: DEXAMETHASONE SOD PHOSPHATE 10 MG/ML 1 ML VIAL ONE (09:00)
[2019-11-19] MEDS ORDERED: fentaNYL (PF) 50 MCG/ML 2 ML AMP ONE (09:00)
[2019-11-19] MEDS ORDERED: NEOSTIGMINE 1 MG/ML 10 ML VIAL ONE (09:00)
[2019-11-19] MEDS ORDERED: ALBUTEROL INHALER 60 PUFF/8 GM INHALER (MHU) INHALATION ONE (09:00)
[2019-11-19] MEDS ORDERED: BUPIVACAINE (PF) 0.25% 30 ML VIAL SQ ONE (09:32)
--- NOTE | 2019-11-19 10:00 | P.OP ---
Date of Procedure: 11/19/19 Preoperative Diagnosis: Incarcerated incisional hernia Postoperative Diagnosis: Incarcerated incisional hernia Procedure(s) Performed: Laparoscopic robotic system repair of incarcerated incisional hernia Partial omentectomy Anesthesia: DERREK Surgeon: Carlito Alvares Estimated Blood Loss (ml): 10 Pathology: other (Hernia sac/omentum) Condition: stable Disposition: PACU Description of Procedure: The patient was placed on the operating table in the supine position. He rece ived general anesthesia. His abdomen was prepped and draped usual fashion. Using a 5 mm optical trocar under direct visualization the peritoneal cavity was entered in the left upper quadrant. The abdomen was then insufflated. The laparoscope was placed back into the perineal cavity. Next a 8 mm robotic trocar was placed in the left lower quadrant and a 12 mm robotic trocar was placed in the left lateral position. The original 5 mm trocar was exchanged for a 8 mm robotic trocar. The patient's placed in the left side up position. And the patient was docked to the robot. The incisional hernia was visualized. Using hook cautery the peritoneum over the incisional hernia was excised. Incarcerated omentum and hernia sac were dissected free and sent to pathology. The fascial opening was repaired using 0V LOC suture. Next a piece of 11 cm round ventral light ST mesh was placed into the. Cavity and secured with 2 OV lock suture. The patient was undocked the robot. The needles were retrieved. The fascia of the 12 mm trocar site was closed with 0 Ethibond suture. Skin was closed interrupted 3-0 Monocryl suture. Dermabond dressings was applied. Patient tolerated procedure well and was sent to recovery room stable condition.
[2019-11-19] MEDS ORDERED: LACTATED RINGERS 1,000 ML IV ONE (10:11)
[2019-11-19] MEDS ORDERED: LORazepam 2 MG/ML INJ IV ONE (10:34)
[2019-11-19] MEDS ORDERED: fentaNYL (PF) 50 MCG/ML 2 ML AMP IVP ONE ×2 (10:36→10:37)
[2019-11-19] MEDS ORDERED: hydrALAZINE HCL 20 MG/ML 1 ML VIAL IVP ONE ×2 (10:38→10:52)
[2019-11-19] MEDS ORDERED: IPRATROPIUM-ALBUTEROL 3 ML NEB INHALATION STA (10:44)
[2019-11-19] MEDS ORDERED: MORPHINE SULFATE 4MG/4ML SYRG IVP ONE (11:18)
[2019-11-19] MEDS ORDERED: FUROSEMIDE 10 MG/ML 4 ML VIAL IV STA (11:23)
[2019-11-19] MEDS: IPRATROPIUM-ALBUTEROL 3 ML NEB INHALATION SCH ×4 (11:24→19:13)
--- NOTE | 2019-11-19 11:28 | XR ---
EXAMINATION TYPE: XR chest 1V portable DATE OF EXAM: 11/19/2019 CLINICAL HISTORY: Endotracheal tube placement TECHNIQUE: Portable supine view of the chest COMPARISON: Chest radiograph 09/22/2019 FINDINGS: Endotracheal tube 3.0 cm from the gaurang. Low lung volumes accentuates the cardiomediastin al silhouette. Increased pulmonary vascular congestion. There are airspace opacities of the bilateral upper lungs. Subsegmental atelectasis bilaterally. Supine technique limits evaluation for pneumothor ax. The osseous structures are intact. IMPRESSION: 1. Endotracheal tube distal tip 3.0 cm from the gaurang. 2. Pulmonary vascular congestion and airspace opacities of the bilateral upper lungs.
[2019-11-19] MEDS ORDERED: FUROSEMIDE 10 MG/ML 4 ML VIAL IV ONE (11:29)
[2019-11-19] MEDS ORDERED: VECURONIUM 10 MG VIAL IV ONE (11:29)
[2019-11-19] MEDS ORDERED: ESMOLOL 100 MG/10 ML VIAL IV ONE (11:36)
[2019-11-19] MEDS ORDERED: methylPREDNISolone SOD SUCCI 125 MG/2 ML VIAL IV SCH (12:00)
--- NOTE | 2019-11-19 12:08 | P.CNPUL ---
History of Present Illness Consult date: 11/19/19 Requesting physician: Carlito Tapia Reason for consult: other (Postoperative hypoxic respiratory failure) Chief complaint: Status post laparoscopic robotic repair of incarcerated incisional hernia. History of present illness: This is a 29-year-old white male with history of asthma, hepatitis C, chronic liver disease secondary to hepatitis C, patient underwent today a ventral incisional hernia repair done by Dr. tapia, postoperatively patient was extubated but he had to be reintubated mostly because he developed significant bronchospasm and abnormal chest x-ray showing pulmonary vascular congestion and airspace opacities of bilateral upper lobe. I saw the patient in the recovery room, patient was on mechanical ventilation, intubated the size 7.0 endotracheal tube, chest x-ray was reviewed, patient was on 100% FiO2 tidal volume is 500, assist control rate of 16 PEEP was 5. O2 saturation was marginal. Hence I recommended a dose of Lasix, recommended bronchodilators and steroids, and I have recommended changing the endotracheal tube to a size 8.0 endotracheal tube and eventual transfer to the ICU. Supposedly the patient had fairly uneventful laparoscopic repair of ventral incisional hernia. Patient is known to have history of anasarca related to liver disease mostly related to alcohol abuse and history of hepatitis C patient is also known to have history of asthma nicotine dependence, obesity with BMI of 40.7, and history of elevated liver enzymes. Review of Systems ROS unobtainable: due to endotracheal tube Past Medical History Past Medical History: Asthma, Liver Disease Additional Past Medical History / Comment(s): hep c (previous IV drug use.). HERNIA. GENERALIZED EDEMA-MOSTLY BLE History of Any Multi-Drug Resistant Organisms: None Reported Past Surgical History: Hernia Repair Past Anesthesia/Blood Transfusion Reactions: No Reported Reaction Smoking Status: Current every day smoker - Past Family History Mother Additional Family Medical History / Comment(s): tachycardia Father Family Medical History: Asthma, Coronary Artery Disease (CAD), Diabetes Mellitus Medications and Allergies Home Medications Medication Instructions Recorded Confirmed Type Albuterol Sulfate [Proair Hfa] 2 puff INHALATION RT-Q6H PRN 03/07/19 11/19/19 History Ipratropium-Albuterol Nebulize 3 ml INHALATION RT-Q6H PRN 03/07/19 11/19/19 History [Duoneb 0.5 mg-3 mg/3 ml Soln] Acetaminophen Tab [Tylenol] 650 mg PO Q6H #30 tab 11/19/19 Rx Docusate [Colace] 100 mg PO BID #20 capsule 11/19/19 Rx Ibuprofen [Motrin] 600 mg PO Q6HR PRN #40 tab 11/19/19 Rx oxyCODONE HCL [OxyIR] 5 mg PO Q4H PRN 3 Days #18 tab 11/19/19 Rx Allergies Allergy/AdvReac Type Severity Reaction Status Date / Time No Known Allergies Allergy Verified 11/19/19 07:59 Physical Exam Vitals: Vital Signs Temp Pulse Pulse Resp BP BP Pulse Ox 11/19/19 11:56 133 H 11/19/19 11:43 134 H 11/19/19 11:37 118 H 16 175/93 82 L 11/19/19 11:30 138 H 16 169/100 87 L 11/19/19 11:08 132 H 16 211/125 89 L 11/19/19 10:54 130 H 11/19/19 10:45 136 H 16 223/105 92 L 11/19/19 10:38 104 H 208/106 11/19/19 10:30 131 H 11/19/19 10:16 97.0 F L 108 H 16 119/62 100 11/19/19 08:57 108 H 96 11/19/19 08:01 97.3 F L 111 H 16 132/78 95 Intake and Output 11/18/19 11/19/19 11/19/19 22:59 06:59 14:59 Intake Total 1650 Output Total 250 Balance 1400 Intake: IV 1650 Output: Urine 200 Estimated Blood Loss 50 Other: Weight 119.1 kg Physical Exam: Revealed a 29-year-old white male obese, on mechanical ventilation, sweating profusely Head: Atraumatic, normocephalic. Patient had the size 7.0 endotracheal tube HEENT:[Neck is supple.] [No neck masses.] [No thyromegaly.] [No JVD.] Short obese neck. Chest: [Symmetrical chest expansion, rhonchi and wheezes noted bilaterally. Cardiac Exam: Tachycardic. [Normal S1 and S2, no S3 gallop, no murmur.] Abdomen: Obese, binder is in place. Post surgical abdomen. No rebound no guarding. Extremities: [No clubbing, no edema, no cyanosis.] Neurological Exam: Patient is sedated, could not be assessed. Psychiatric: Could not be assessed. Skin: No rashes. Results - Diagnostic Findings Chest x-ray: image reviewed (Chest x-ray showed endotracheal tube about 3 cm from the gaurang. There was evidence of pulmonary vascular congestion andopacities of bilateral upper lung) Assessment and Plan Assessment: Impression: Postoperative hypoxic respiratory failure, secondary to acute bronchospasm and possible negative pressure pulmonary edema. As well as acute asthma exacerbation, possible aspiration pneumonia. History of mild persistent asthma Status post laparoscopic repair of ventral incisional hernia postoperative day #0. History of chronic liver disease, related to alcohol abuse and related to hepatitis C. History of ascites secondary to underlying liver disease. History of alcohol abuse. History of nicotine dependence. Morbid obesity with body mass index of 41.6. Recommendation: Continue ventilatory support. Bronchodilators in the form of albuterol, Atrovent, Pulmicort, and Perforomist. IV Solu-Medrol 60 mg IV push every 6 hours. Patient received Decadron earlier in the recovery room. Endotracheal tube to be changed to a size 8 by anesthesia. Nasogastric tube to be placed. Antibiotics empirically in the form of Zosyn. 1 dose of Lasix ordered. GI prophylaxis. DVT prophylaxis. Use compression stockings. Transfer patient to the ICU. We'll continue to follow. Time with Patient: Greater than 30
--- NOTE | 2019-11-19 12:37 | XR ---
EXAMINATION TYPE: XR chest 1V portable DATE OF EXAM: 11/19/2019 CLINICAL HISTORY: ET tube placement. TECHNIQUE: Supine portable view of the chest. COMPARISON: 11/19/2019 chest radiograph at 11:05 AM FINDINGS: Endotracheal tube distal tip 4.3 cm from the gaurang. Enteric tube distal tip and side-port over the left upper quadrant over the projected area of the stomach. Low lung volumes accentuates th e cardiac silhouette. There is moderately improved aeration of the bilateral upper lungs with persist ent right mid subsegmental atelectasis. Supine technique limits evaluate for pneumothorax. Osseous st ructures are intact. IMPRESSION: 1. Endotracheal tube distal tip 4.3 cm from the gaurang. 2. Moderately improved aeration of the bilateral upper lungs versus 11:05 AM comparison. 3. Enteric tube distal tip and side-port overlie the stomach.
[2019-11-19] MEDS ORDERED: CLEVIDIPINE BUTYRATE 25 MG/50 ML VIAL IV ONE (12:38)
[2019-11-19 12:39] LABS: Glucose,Whole Blood 208 mg/dL (75-99)
[2019-11-19] MEDS ORDERED: CISATRACURIUM 2 MG/ML 5 ML VIAL IV ONE ×2 (12:40→12:43)
[2019-11-19] MEDS ORDERED: SODIUM BICARB 8.4% 50 ML SYR (1 MEQ/ML) IV STA ×2 (12:44→17:07)
[2019-11-19] MEDS ORDERED: SODIUM BICARB 8.4% 50 ML SYR (1 MEQ/ML) ONE (12:45)
[2019-11-19] MEDS ORDERED: propofoL 100 ML IV ONE (12:47)
[2019-11-19] MEDS: CLEVIDIPINE BUTYRATE 25 MG in EMPTY BAG 1 BAG IV SCH ×8 (12:50→22:48)
[2019-11-19 12:51] LABS: ABG Base Excess -7.7 mmol/L; ABG HCO3 22 mmol/L (21-25); ABG Oxygen Saturation 89.7 % (94-97); ABG PCO2 65 mmHg (35-45); ABG PH 7.13 (7.35-7.45); ABG PO2 74 mmHg (83-108); ABG TCO2 24 mmol/L (19-24); Allen Test Performed? nno
[2019-11-19] MEDS: CISATRACURIUM 200 MG in SODIUM CHLORIDE 0.9% 180 ML IV SCH ×2 (13:05→22:11)
[2019-11-19 13:17] LABS: HCT 49.2 % (39.0-53.0); HGB 16.2 gm/dL (13.0-17.5); MCH 34.8 pg (25.0-35.0); MCHC 32.9 g/dL (31.0-37.0); MCV 105.7 fL (80.0-100.0); Macrocytosis Moderate; Mean Platelet Volume 7.7; Platelet Count 207 k/uL (150-450); RBC 4.65 m/uL (4.30-5.90); RDW 13.5 % (11.5-15.5); WBC 16.8 k/uL (3.8-10.6)
[2019-11-19] MEDS: PANTOPRAZOLE 40 MG/10 ML VIAL IVP SCH (13:24)
[2019-11-19 13:27] LABS: ALT 240 U/L (4-49); AST 488 U/L (17-59); African American GFR (CKD) >90 (>60 ml/min/1.73 sqM); Albumin 4.6 g/dL (3.5-5.0); Alkaline Phosphatase 191 U/L (38-126); Anion Gap 11 mmol/L; Blood Urea Nitrogen 9 mg/dL (9-20); Calcium 8.1 mg/dL (8.4-10.2); Carbon Dioxide 26 mmol/L (22-30); Chloride 107 mmol/L (98-107); Glucose 218 mg/dL (74-99); Magnesium 1.5 mg/dL (1.6-2.3); Non-African American GFR(CKD) >90 (>60 ml/min/1.73 sqM); Potassium 4.8 mmol/L (3.5-5.1); Sodium 144 mmol/L (137-145); Total Bilirubin 1.4 mg/dL (0.2-1.3); Total Protein 8.1 g/dL (6.3-8.2)
--- NOTE | 2019-11-19 13:32 | CDI ---
Documentation Clarification Form Date: 11/19/2019 01:17:02 PM From: Diane Birmingham CCS, CCDS Admit Date: 11/19/2019 11:30:00 AM Patient Name: Douglas Chambers Visit Number: [id number] Discharge Date: ATTENTION: The Clinical Documentation Specialists (CDI) and [facility] Coding Staff appreciate your assistance in clarifying documentation. Please respond to the clarification below the line at the bottom and electronically sign. The CDI & [facility] Coding staff will review the response and follow-up if needed. Please note: Queries are made part of the Legal Health Record. If you have any questions, please contact the author of this message via ITS. Dr. Kati Alas: Per the 11/18 Pulmonary/Critical Care Consult: "Postoperative hypoxic respiratory failure, secondary to acute bronchospasm and possible negative pressure pulmonary edema. As well as acute asthma exacerbation, possible aspiration pneumonia." Patients Admitting Diagnosis: Incarcerated Incisional Hernia Post-Operative Diagnosis: Same & respiratory failure as above. Procedure performed: Laparoscopic robotic system repair of incarcerated incisional hernia. Partial omentectomy. History/Risk Factors: Mild persistent asthma, Chronic liver disease related to alcohol abuse & Hepatitis C, Ascites secondary to liver disease. Nicotine dependence, Morbid obesity, BMI 41.6. Clinical Indicators: Presented as above for elective procedure, in ICU postoperatively, remains intubated on ventilator. VS 11/18 postoperatively: P 130^, R 16, BP 211/125^, PO 89 100% vent. LAB: WBC 16.8^, Glucose 208^ Blood Gas ABG: pH 7.13, pCO2 65^, pO2 74*, O2 Sat 89.7* 11/18 CXR: Pulmonary vascular congestion & airspace opacities of bilateral lungs. Treatment: IV Cefazolin, IV Decadron, IV Lactated Ringers, IV Zofran, Heparin sq, IV Ativan, IV apresoline, INH Albuterol/Ipratropium In order to accurately reflect this patients severity of illness, please clarify if the documented "Postoperative Hypoxic Respiratory Failure" is: Is a complication of surgical procedure Is an expected outcome of the surgical procedure Is related to co-morbid condition(s) of Other please specify: Unable to determine (Last Revision: March 2019) MTDD
[2019-11-19] MEDS ORDERED: Magnesium Replacement Protocol 1 EACH MISC MISCELLANE PRN ×2 (14:06→19:02)
--- NOTE | 2019-11-19 14:32 | P.ANPRN ---
Procedure Note - Anesthesia - Nerve Block Performed Bilateral Rectus Abdominis Single Time Out Performed: Yes Date of Procedure: 11/19/19 Procedure Start Time: 08:50 Procedure Stop Time: 08:56 Location of Patient: PreOp Indication: Acute Post-Operative Pain, Requested by Surgeon Sedation Type: Sedate with meaningful contact maintained Preparation: Sterile Prep Position: Supine Needle Types: Pajunk Needle Gauge: 21 Ultrasound used to visualize needle placement: Yes Ultrasound used to observe medication spread: Yes Blood Aspirated: No Pain Paresthesia on Injection Noted: No Resistance on Injection: Normal Image Stored and Saved: Yes Events: Uneventful and Well Tolerated (ropi .5% 20cc plus dexamethasone 4mg bilaterally)
[2019-11-19] MEDS: MORPHINE SULFATE 2 MG/ML SYRINGE IVP PRN ×5 (14:40→23:50)
[2019-11-19 14:54] LABS: ABG Base Excess -2.9 mmol/L; ABG HCO3 24 mmol/L (21-25); ABG Oxygen Saturation 94.5 % (94-97); ABG PCO2 54 mmHg (35-45); ABG PH 7.26 (7.35-7.45); ABG PO2 79 mmHg (83-108); ABG TCO2 26 mmol/L (19-24)
[2019-11-19 14:57] LABS: Allen Test Performed? No
--- NOTE | 2019-11-19 15:43 | XR ---
EXAMINATION TYPE: XR chest 1V portable DATE OF EXAM: 11/19/2019 CLINICAL HISTORY: Respiratory distress following hernia surgery TECHNIQUE: Semiupright portable view of the chest COMPARISON: 11/19/2019 chest radiograph at 11:44 AM and 11:05 AM FINDINGS: Endotracheal tube distal tip again at the level of the clavicular heads. Enteric tube agai n coiled over the left upper quadrant projected area of the stomach. There is mildly increased subseg mental linear atelectasis at the right minor fissure of the inferior right lower lobe. Improved aerat ion of the lung apices versus comparison at 1144 and 11:05 AM. There is haziness of the bilateral cos tophrenic angles. No pneumothorax. IMPRESSION: 1. Mildly increased linear atelectasis of the inferior right lower lobe versus comparisons from [facility] today. Findings may represent developing obstructive process such as mucous plugging. 2. Haziness of the costophrenic angles may represent new tiny pleural effusions.
[2019-11-19] MEDS: MAGNESIUM SULFATE-D5W PMX 1 GM in DEXTROSE/WATER 1 100ML.BAG IVPB SCH ×2 (16:03→16:28)
[2019-11-19] MEDS: PIPERACILLIN-TAZOBACTAM 3.375 GM in SODIUM CHLORIDE 0.9% 100 ML IVPB SCH ×2 (16:03→23:31)
--- NOTE | 2019-11-19 16:29 | US ---
EXAMINATION TYPE: US venous doppler duplex LE DATE OF EXAM: 11/19/2019 4:06 PM COMPARISON: NONE CLINICAL HISTORY: respiratory distress. intubated ICU patient SIDE PERFORMED: Bilateral TECHNIQUE: The lower extremity deep venous system is examined utilizing real time linear array sonog oriana with graded compression, doppler sonography and color-flow sonography. VESSELS IMAGED: External Iliac Vein (EIV) Common Femoral Vein Deep Femoral Vein Greater Saphenous Vein * Femoral Vein Popliteal Vein Small Saphenous Vein * Proximal Calf Veins (* superficial vessels) Right Leg: IV lines within right groin with Tegaderms patches limited images of upper thigh, otherwi se negative for DVT Left Leg: Negative for DVT IMPRESSION: 1. Bilateral lower extremity ultrasound negative for deep venous thrombosis. 2. The right extremity is very limited for evaluation within right groin region due to bandaging.
[2019-11-19 17:03] LABS: ABG Base Excess -4.3 mmol/L; ABG HCO3 23 mmol/L (21-25); ABG Oxygen Saturation 92.7 % (94-97); ABG PCO2 52 mmHg (35-45); ABG PH 7.25 (7.35-7.45); ABG PO2 70 mmHg (83-108); ABG TCO2 25 mmol/L (19-24)
[2019-11-19] MEDS ORDERED: SODIUM CHLORIDE 0.9% 1,000 ML IV ONE (17:03)
[2019-11-19 17:07] LABS: Allen Test Performed? no
[2019-11-19] MEDS ORDERED: INSULIN REGULAR BOLUS (FROM DRIP BAG) IV PRN (17:17)
[2019-11-19 17:59] LABS: Glucose,Whole Blood 198 mg/dL (75-99)
[2019-11-19] MEDS: INSULIN REGULAR 100 UNIT in SODIUM CHLORIDE 0.9% 100 ML IV SCH (18:00)
[2019-11-19] MEDS: SODIUM CHLORIDE 0.9% 1,000 ML IV SCH (18:06)
[2019-11-19] MEDS: methylPREDNISolone SOD SUCCI 125 MG/2 ML VIAL IV SCH ×2 (18:06→23:31)
[2019-11-19 18:30] LABS: Amorphous Sediment,Urine Rare /hpf; Appearance,Urine Turbid (Clear); Bacteria,Urine Occasional /hpf; Bilirubin,Urine Negative (Negative); Blood,Urine Moderate (Negative); Budding Yeast,Urine Few /hpf; Color,Urine Dark Brown; Glucose,Urine (UA) Negative (Negative); Granular Casts,Urine 8 /lpf (0); Hyaline Casts,Urine 21 /lpf (0-2); Ketones,Urine Negative (Negative); Leukocyte Esterase,Urine Trace (Negative); Mucus,Urine Rare /hpf; Nitrite,Urine Negative (Negative); PH, Urine 5.5 (5.0-8.0); Protein,Urine 1+ (Negative); RBC,Urine >182 /hpf (0-5); Specific Gravity,Urine 1.027 (1.001-1.035); Squamous Epithelial Cell,Urine <1 /hpf (0-4); WBC,Urine 28 /hpf (0-5)
[2019-11-19 18:45] LABS: Glucose,Whole Blood 176 mg/dL (75-99)
[2019-11-19] MEDS ORDERED: Potassium Replacement Protocol 1 EACH MISC MISCELLANE PRN (19:02)
[2019-11-19] MEDS: FORMOTEROL FUMARATE 20 MCG/2 ML NEBU INHALATION SCH (19:13)
[2019-11-19] MEDS: BUDESONIDE 1 MG/2 ML NEBU INHALATION SCH (19:13)
[2019-11-19 19:23] LABS: Glucose,Whole Blood 178 mg/dL (75-99)
[2019-11-19 19:51] LABS: Prothrombin Time 10.3 sec (9.0-12.0)
[2019-11-19 20:05] LABS: Glucose,Whole Blood 181 mg/dL (75-99)
[2019-11-19] MEDS: HEPARIN SODIUM,PORCINE 5,000 UNIT/ML 1 ML VIAL SQ SCH ×2 (20:21→22:47)
[2019-11-19 21:07] LABS: Glucose,Whole Blood 174 mg/dL (75-99)
[2019-11-19 22:16] LABS: Glucose,Whole Blood 180 mg/dL (75-99)
[2019-11-19 22:20] LABS: ABG Base Excess -1.8 mmol/L; ABG HCO3 25 mmol/L (21-25); ABG Oxygen Saturation 95.7 % (94-97); ABG PCO2 49 mmHg (35-45); ABG PH 7.31 (7.35-7.45); ABG PO2 78 mmHg (83-108); ABG TCO2 26 mmol/L (19-24)
[2019-11-19 23:48] LABS: Glucose,Whole Blood 171 mg/dL (75-99)
[2019-11-20] MEDS: CLEVIDIPINE BUTYRATE 25 MG in EMPTY BAG 1 BAG IV SCH ×14 (00:25→22:43)
[2019-11-20 01:11] LABS: Glucose,Whole Blood 170 mg/dL (75-99)
[2019-11-20 01:30] LABS: Hemoglobin A1C 5.1 % (4.0-6.0)
[2019-11-20 02:21] LABS: Glucose,Whole Blood 161 mg/dL (75-99)
--- NOTE | 2019-11-20 03:13 | CONS ---
CONSULTATION REASON FOR CONSULTATION: Advice regarding asthma and other multiple medical issues requested by Dr. Alvares. HISTORY OF PRESENT ILLNESS: This 29-year-old gentleman with a past medical history of asthma, liver disease, history of hepatitis C, previous IV drug abuse, history of heroin in the remote past being followed by no primary physician in the outpatient setting underwent laparoscopic robotic system repair of incarcerated incisional hernia and partial omentectomy by Dr. Alvares. Postoperatively apparently the patient had an asthma attack after extubation. The patient had to be re-intubated because of bronchospasm and abnormal chest x-ray showing bilateral pulmonary congestion also. The possibility of aspiration also being entertained by Dr. Alas. The patient was given Lasix and the patient was intubated and admitted for further evaluation and treatment and the patient was transferred to ICU and mechanically intubated at this time. The patient unable to give a coherent history, most of history taken my discussion with the staff and review of chart at this time. The patient is mechanically intubated. Patient is on multiple drips including Diprivan, Cleviprex, and the patient is on assist-control, 450 tidal volume, 100% FiO2 and 10 of PEEP, saturating around the low 90s. PAST MEDICAL HISTORY: History of asthma, liver disease, hepatitis C, history of chronic liver disease, history of heroin, history of remote IV drug abuse about 3 years ago. MEDICATIONS: Medications prior to admission include home medications are: DuoNeb q.6 p.r.n., albuterol p.r.n., Oxy-IR 5 mg q.4 p.r.n. Motrin, Colace, Tylenol. ALLERGIES: Allergies are none. FAMILY HISTORY: History of asthma, CAD, diabetes, tachycardia in the family. SOCIAL HISTORY: History of occasional alcohol, THC. History of smoking. REVIEW OF SYSTEMS: Review of systems could not be taken because patient is mechanically intubated. PHYSICAL EXAMINATION: Patient is mechanically intubated. Pulse is 137, blood pressure 126/57, respiration 30, temperature 99.1, pulse ox 89% on mechanical ventilation. Mechanical ventilation settings are noted. HEENT: Conjunctivae normal. Oral mucosa moist. NECK: No jugular venous distention. No carotid bruit. No lymph node enlargement. CARDIOVASCULAR: S1, S2 muffled. No S3, no S4. RESPIRATORY: Breath sounds diminished at the bases. No rhonchi. No crackles. ABDOMEN: Soft, status post surgery. LEGS: No edema. No swelling. NERVOUS SYSTEM: Patient mechanically intubated. SKIN: No ulcer, rash or bleeding. JOINTS: No active deforming arthropathy. LABS: Labs at this time UA noted. RBC and glucose noted. ABGs noted. Otherwise, magnesium is 1.5. AST is 488 and ALT is 240, alkaline phosphatase 191. WBC 16.8. ASSESSMENT: 1. Status post laparoscopic robotic system repair of incarcerated incisional hernia and partial omentectomy. 2. Postoperative respiratory distress, possible bronchial asthma acute exacerbation. 3. Possible aspiration pneumonia. 4. Possible acute delirium tremens. 5. Sinus tachycardia. 6. Increased WBC. 7. Increased MCV. 8. Possible alcoholic hepatitis. 9. Hypomagnesemia. 10.Diabetes mellitus type 2. 11.Obesity with body mass index 38.8. 12.History of asthma. 13.History of chronic liver disease secondary to hepatitis C related to previous IV drug abuse. 14.History of generalized edema. 15.History of hernia repair. 16.History of nicotine dependence, continued ongoing. 17.History of heroin. 18.History of THC. RECOMMENDATIONS AND DISCUSSION: This 29-year-old gentleman who presented with multiple medical issues, at this time I recommend to continue the current medications, continue symptomatic treatment. Otherwise at this time mechanical ventilation, empiric antibiotics. Otherwise, Lasix has been given. I would also recommend complete cardiac workup also including 2D echo with Doppler and troponin once the patient has recovered. Otherwise closely follow with Dr. Alas in the ICU. DVT prophylaxis. I would also recommend the patient follow up with primary physician in outpatient setting. Patient started on Zosyn per Dr. Alas. Discussed with staff. Thank you Dr. Alvares for letting us participate in the care of this patient. MMODL / IJN: [id number] /
[2019-11-20 03:15] LABS: Glucose,Whole Blood 147 mg/dL (75-99)
[2019-11-20] MEDS: SODIUM CHLORIDE 0.9% 1,000 ML IV SCH ×2 (03:20→15:25)
[2019-11-20 04:23] LABS: Glucose,Whole Blood 164 mg/dL (75-99)
[2019-11-20 04:31] LABS: Basophils # (A) 0.1 k/uL (0-0.2); Basophils % (A) 1 %; Eosinophils # (A) 0.1 k/uL (0-0.7); Eosinophils % (A) 1 %; HCT 41.4 % (39.0-53.0); HGB 14.5 gm/dL (13.0-17.5); Lymphocytes # (A) 0.2 k/uL (1.0-4.8); Lymphocytes % (A) 1 %; MCV 105.6 fL (80.0-100.0); Macrocytosis Moderate; Mean Platelet Volume 7.8; Monocytes # (A) 0.8 k/uL (0-1.0); Monocytes % (A) 5 %; Neutrophils # (A) 12.9 k/uL (1.3-7.7); Neutrophils % (A) 91 %; Platelet Count 169 k/uL (150-450); RBC 3.92 m/uL (4.30-5.90); RDW 13.5 % (11.5-15.5); WBC 14.3 k/uL (3.8-10.6)
[2019-11-20 04:43] LABS: ALT 165 U/L (4-49); AST 288 U/L (17-59); African American GFR (CKD) >90 (>60 ml/min/1.73 sqM); Albumin 4.3 g/dL (3.5-5.0); Alkaline Phosphatase 151 U/L (38-126); Anion Gap 7 mmol/L; Blood Urea Nitrogen 17 mg/dL (9-20); Calcium 8.8 mg/dL (8.4-10.2); Carbon Dioxide 24 mmol/L (22-30); Chloride 110 mmol/L (98-107); Glucose 166 mg/dL (74-99); Magnesium 1.9 mg/dL (1.6-2.3); Non-African American GFR(CKD) >90 (>60 ml/min/1.73 sqM); Potassium 4.9 mmol/L (3.5-5.1); Sodium 141 mmol/L (137-145); Total Bilirubin 1.8 mg/dL (0.2-1.3); Total Protein 7.5 g/dL (6.3-8.2)
[2019-11-20 05:10] LABS: Glucose,Whole Blood 165 mg/dL (75-99)
--- NOTE | 2019-11-20 05:19 | PCN ---
PROCEDURE NOTE OPERATIVE REPORT: Placement of a right femoral triple-lumen catheter. PREOPERATIVE DIAGNOSIS: Acute hypoxic respiratory failure. POSTOPERATIVE DIAGNOSIS: Acute hypoxic respiratory failure. ANESTHESIA USED: 2 mL of 1% lidocaine. DESCRIPTION OF PROCEDURE: The patient was placed in a supine position, the right groin was prepared in a sterile fashion and drapes were applied. The area in the groin was locally anesthetized with lidocaine. Then, the right femoral vein was easily cannulated medial to the right femoral artery. A guidewire was placed, the area around the guidewire was dilated. Then a triple-lumen catheter was inserted over the guidewire, and the guidewire was removed. Good blood flow was noted in the 3 different ports of the triple-lumen catheter. There was no evidence of any immediate complications. Line was secured using 3.0 silk sutures. MMODL / IJN: [id number] /
[2019-11-20] MEDS: methylPREDNISolone SOD SUCCI 125 MG/2 ML VIAL IV SCH ×3 (05:20→17:49)
[2019-11-20] MEDS: MORPHINE SULFATE 2 MG/ML SYRINGE IVP PRN (05:20)
[2019-11-20 06:12] LABS: Glucose,Whole Blood 173 mg/dL (75-99)
[2019-11-20 07:09] LABS: Glucose,Whole Blood 168 mg/dL (75-99)
[2019-11-20 07:16] LABS: ABG Base Excess -0.3 mmol/L; ABG HCO3 25 mmol/L (21-25); ABG Oxygen Saturation 95.6 % (94-97); ABG PCO2 47 mmHg (35-45); ABG PH 7.34 (7.35-7.45); ABG PO2 74 mmHg (83-108); ABG TCO2 27 mmol/L (19-24)
[2019-11-20 07:17] LABS: Allen Test Performed? no
[2019-11-20 08:22] LABS: Glucose,Whole Blood 175 mg/dL (75-99)
[2019-11-20] MEDS: IPRATROPIUM-ALBUTEROL 3 ML NEB INHALATION SCH ×4 (08:34→19:03)
[2019-11-20] MEDS: FORMOTEROL FUMARATE 20 MCG/2 ML NEBU INHALATION SCH ×2 (08:34→19:03)
[2019-11-20] MEDS: BUDESONIDE 1 MG/2 ML NEBU INHALATION SCH ×2 (08:34→19:03)
[2019-11-20 08:59] LABS: Glucose,Whole Blood 172 mg/dL (75-99)
[2019-11-20] MEDS: fentaNYL (PF) 1,000 MCG in SODIUM CHLORIDE 0.9% 80 ML IV SCH ×2 (09:13→21:41)
[2019-11-20] MEDS: PIPERACILLIN-TAZOBACTAM 3.375 GM in SODIUM CHLORIDE 0.9% 100 ML IVPB SCH ×2 (09:27→17:48)
[2019-11-20] MEDS: PANTOPRAZOLE 40 MG/10 ML VIAL IVP SCH (09:27)
[2019-11-20] MEDS: HEPARIN SODIUM,PORCINE 5,000 UNIT/ML 1 ML VIAL SQ SCH ×2 (09:27→17:48)
[2019-11-20] MEDS: CHLORHEXIDINE GLUCONATE 15 ML CUP MUCOUS MEM SCH ×2 (09:27→19:57)
--- NOTE | 2019-11-20 09:32 | XR ---
EXAMINATION TYPE: XR chest 1V portable DATE OF EXAM: 11/20/2019 COMPARISON: NONE HISTORY: Respiratory distress TECHNIQUE: Single frontal view of the chest is obtained. FINDINGS: ET and NG tube stable. There is bilateral areas of infiltrate and small effusion. Findings are stable. Heart size stable. No sizable pneumothorax. IMPRESSION: 1. Bilateral areas of infiltrate and small effusion.
--- NOTE | 2019-11-20 11:01 | ECHOF ---
Referral Reason:chf MEASUREMENTS -------- HEIGHT: 175.3 cm WEIGHT: 127.0 kg BP: IVSd: 1.6 cm (0.6 - 1.1) LVIDd: 4.4 cm (3.9 - 5.3) LVPWd: 1.6 cm (0.6 - 1.1) IVSs: 1.8 cm LVIDs: 2.8 cm LVPWs: 1.8 cm Ao Diam: 3.1 cm (2.0 - 3.7) AV Cusp: 1.5 cm (1.5 - 2.6) LA Diam: 2.7 cm (2.7 - 3.8) RAP: 5.00 mmHg RVSP: 13.09 mmHg FINDINGS -------- Sinus rhythm. This was a technically difficult study with suboptimal views. Pt. on a vent. The left ventricular size is normal. There is moderate concentric left ventricular hypertrophy. O verall left ventricular systolic function is normal with, an EF between 55 - 60 %. The RV was not well visualized. The left atrium was not well visualized. The right atrium was not well visualized. Lumason used The aortic valve was not well visualized. The mitral valve was not well visualized. The tricuspid valve was not well visualized. The pulmonic valve was not well visualized. There is no pericardial effusion. CONCLUSIONS -------- 1. There is moderate concentric left ventricular hypertrophy. 2. Overall left ventricular systolic function is normal with, an EF between 55 - 60 %. 3. The aortic valve was not well visualized. 4. The mitral valve was not well visualized. 5. The tricuspid valve was not well visualized. 6. There is no pericardial effusion. EXTRUDER: Shannan Anthony, [facility]
[2019-11-20 11:04] LABS: Glucose,Whole Blood 164 mg/dL (75-99)
[2019-11-20 11:53] LABS: Glucose,Whole Blood 168 mg/dL (75-99)
[2019-11-20] MEDS: INSULIN REGULAR 100 UNIT in SODIUM CHLORIDE 0.9% 100 ML IV SCH (11:53)
--- NOTE | 2019-11-20 12:36 | P.PN ---
Subjective Progress Note Date: 11/20/19 Principal diagnosis: Acute hypoxic respiratory failure This is a 29-year-old white male with history of asthma, hepatitis C, chronic liver disease secondary to hepatitis C, patient underwent today a ventral incisional hernia repair done by Dr. tapia, postoperatively patient was extubated but he had to be reintubated mostly because he developed significant bronchospasm and abnormal chest x-ray showing pulmonary vascular congestion and airspace opacities of bilateral upper lobe. I saw the patient in the recovery room, patient was on mechanical ventilation, intubated the size 7.0 endotracheal tube, chest x-ray was reviewed, patient was on 100% FiO2 tidal volume is 500, assist control rate of 16 PEEP was 5. O2 saturation was marginal. Hence I recommended a dose of Lasix, recommended bronchodilators and steroids, and I have recommended changing the endotracheal tube to a size 8.0 endotracheal tube and eventual transfer to the ICU. Supposedly the patient had fairly uneventful laparoscopic repair of ventral incisional hernia. Patient is known to have history of anasarca related to liver disease mostly related to alcohol abuse and history of hepatitis C patient is also known to have history of asthma nicotine dependence, obesity with BMI of 40.7, and history of elevated liver enzymes. Patient was reevaluated today on 11/20/19, patient remains on mechanical ventilation. His ventilator settings are assist control rate of 30 volume is 450 FiO2 is still on the percent PEEP is 12. His peak airway pressure is 35 his plateau pressure is 27. ABG still reflects relative hypoxemia with a pO2 of 74 pCO2 of 47 pH of 7.34. Patient remains on Nimbex, 2 mcg/kg/m, he is also on propofol 75 mcg/kg/m, clevidipine Zak 18 mg/h IV fluid at 0.9 normal saline 100 mL/h, and I am about to start fentanyl 50 g per hour. Patient had follow-up chest x-ray this morning, and it showed mostly some atelectasis and left sided pleural effusion small to moderate. His venous Doppler yesterday was negative for deep vein thrombosis. Echocardiogram today is relatively unremarkable. Cultures are still pending. Pancultures were sent. WBC count today is 14.3. Hemoglobin is 14.5. Basic metabolic profile is normal. Liver enzymes are elevated but improved compared to yesterday urine culture is pending Objective - Vital Signs Vital signs: Vital Signs Temp 102.7 F H 11/20/19 08:00 Pulse 141 H 11/20/19 11:30 Resp 30 H 11/20/19 11:00 BP 141/71 11/20/19 00:30 Pulse Ox 91 L 11/20/19 11:00 Intake & Output 11/19/19 11/20/19 11/20/19 18:59 06:59 18:59 Intake Total 3380.388 2551.997 1053.976 Output Total 2540 465 225 Balance 158.049 5579.997 828.976 Weight 119.1 kg 127.3 kg Intake: IV 1823 72 530 .9 20 mL/hour 140 Piperacillin-Tazobactam 3 100 .375 gm In Sodium Chloride 0.9% 100 ml @ 25 mls/hr IVPB Q8HR [facility] Rx# :[id number] Sodium Chloride 0.9% 1, 400 000 ml @ 100 mls/hr IV . Q10H [facility] Rx#:[id number] pressure bag 33 72 30 Intake, IV Titration 1071.518 3717.997 523.976 Amount Cisatracurium 200 mg In 114.038 Sodium Chloride 0.9% 180 ml @ 1 MCG/KG/MIN 7.146 mls/hr IV .Q24H [facility] Rx#: [id number] Clevidipine Butyrate 25 163.467 362.933 100 mg In Empty Bag 1 bag @ 1 MG/HR 2 mls/hr IV .Q24H [facility] Rx#:[id number] Insulin Regular 100 unit 3.703 42.690 32.320 In Sodium Chloride 0.9% 100 ml @ Per Protocol IV .Q0M [facility] Rx#:[id number] Magnesium Sulfate-D5w Pmx 200 1 gm In Dextrose/Water 1 100ml.bag @ 100 mls/hr IVPB Q1H [facility] Rx#: [id number] Piperacillin-Tazobactam 3 200 .375 gm In Sodium Chloride 0.9% 100 ml @ 25 mls/hr IVPB Q8HR [facility] Rx# :[id number] Sodium Chloride 0.9% 1, 1200 100 000 ml @ 100 mls/hr IV . Q10H [facility] Rx#:[id number] Sodium Chloride 0.9% 1, 1000 000 ml @ 999 mls/hr IV . Q1H1M [facility] Rx#:[id number] propofoL 1,000 mg In 190.218 560.336 291.656 Empty Bag 1 bag @ Titrate IV .Q0M [facility] Rx#: [id number] Output: Urine 2490 465 225 Estimated Blood Loss 50 Other: Voiding Method Indwelling Catheter Indwelling Catheter Indwelling Catheter ABP, PAP, CO, CI - Last Documented Arterial Blood Pressure 127/55 - Exam Physical Exam: Revealed a 29-year-old white male obese, on mechanical ventilation patient is sedated and paralyzed. Head: Atraumatic, normocephalic. Endotracheal tube and orogastric tubes are intact. HEENT:[Neck is supple.] [No neck masses.] [No thyromegaly.] [No JVD.] Short obese neck. Chest: [Symmetrical chest expansion, good breath sound bilaterally no rhonchi no wheezes. Slightly diminished at the bases. Cardiac Exam: Tachycardic. [Normal S1 and S2, no S3 gallop, no murmur.] Abdomen: Obese, binder is in place. Post surgical abdomen. No rebound no guarding. Extremities: [No clubbing, no edema, no cyanosis.] Skin is noted to be a little mottled. Neurological Exam: Patient is sedated, could not be assessed. Patient is sedated and paralyzed. Psychiatric: Could not be assessed. Skin: Mottling of the skin is noted especially in lower extremities - Labs CBC & Chem 7: 11/20/19 04:15 11/20/19 04:15 Labs: Abnormal Lab Results - Last 24 Hours (Table) 11/19/19 11/19/19 11/19/19 Range/Units 12:34 12:36 13:05 WBC 16.8 H (3.8-10.6) k/uL RBC (4.30-5.90) m/uL MCV 105.7 H (80.0-100.0) fL MCH (25.0-35.0) pg Neutrophils # (1.3-7.7) k/uL Lymphocytes # (1.0-4.8) k/uL D-Dimer (<0.60) mg/L FEU ABG pH 7.13 L* (7.35-7.45) ABG pCO2 65 H (35-45) mmHg ABG pO2 74 L (83-108) mmHg ABG Total CO2 (19-24) mmol/L ABG O2 Saturation 89.7 L (94-97) % Chloride (98-107) mmol/L Glucose (74-99) mg/dL POC Glucose (mg/dL) 208 H (75-99) mg/dL Calcium (8.4-10.2) mg/dL Magnesium (1.6-2.3) mg/dL Total Bilirubin (0.2-1.3) mg/dL AST (17-59) U/L ALT (4-49) U/L Alkaline Phosphatase (38-126) U/L Urine Protein (Negative) Urine Blood (Negative) Ur Leukocyte Esterase (Negative) Urine RBC (0-5) /hpf Urine WBC (0-5) /hpf Amorphous Sediment (None) /hpf Urine Bacteria (None) /hpf Hyaline Casts (0-2) /lpf Urine Mucus (None) /hpf Urine Yeast (Budding) (None) /hpf 11/19/19 11/19/19 11/19/19 Range/Units 13:05 14:48 15:30 WBC (3.8-10.6) k/uL RBC (4.30-5.90) m/uL MCV (80.0-100.0) fL MCH (25.0-35.0) pg Neutrophils # (1.3-7.7) k/uL Lymphocytes # (1.0-4.8) k/uL D-Dimer 1.47 H (<0.60) mg/L FEU ABG pH 7.26 L (7.35-7.45) ABG pCO2 54 H (35-45) mmHg ABG pO2 79 L (83-108) mmHg ABG Total CO2 26 H (19-24) mmol/L ABG O2 Saturation (94-97) % Chloride (98-107) mmol/L Glucose 218 H (74-99) mg/dL POC Glucose (mg/dL) (75-99) mg/dL Calcium 8.1 L (8.4-10.2) mg/dL Magnesium 1.5 L (1.6-2.3) mg/dL Total Bilirubin 1.4 H (0.2-1.3) mg/dL AST 488 H (17-59) U/L ALT 240 H (4-49) U/L Alkaline Phosphatase 191 H (38-126) U/L Urine Protein (Negative) Urine Blood (Negative) Ur Leukocyte Esterase (Negative) Urine RBC (0-5) /hpf Urine WBC (0-5) /hpf Amorphous Sediment (None) /hpf Urine Bacteria (None) /hpf Hyaline Casts (0-2) /lpf Urine Mucus (None) /hpf Urine Yeast (Budding) (None) /hpf 11/19/19 11/19/19 11/19/19 Range/Units 16:58 17:40 17:58 WBC (3.8-10.6) k/uL RBC (4.30-5.90) m/uL MCV (80.0-100.0) fL MCH (25.0-35.0) pg Neutrophils # (1.3-7.7) k/uL Lymphocytes # (1.0-4.8) k/uL D-Dimer (<0.60) mg/L FEU ABG pH 7.25 L (7.35-7.45) ABG pCO2 52 H (35-45) mmHg ABG pO2 70 L (83-108) mmHg ABG Total CO2 25 H (19-24) mmol/L ABG O2 Saturation 92.7 L (94-97) % Chloride (98-107) mmol/L Glucose (74-99) mg/dL POC Glucose (mg/dL) 198 H (75-99) mg/dL Calcium (8.4-10.2) mg/dL Magnesium (1.6-2.3) mg/dL Total Bilirubin (0.2-1.3) mg/dL AST (17-59) U/L ALT (4-49) U/L Alkaline Phosphatase (38-126) U/L Urine Protein 1+ H (Negative) Urine Blood Moderate H (Negative) Ur Leukocyte Esterase Trace H (Negative) Urine RBC >182 H (0-5) /hpf Urine WBC 28 H (0-5) /hpf Amorphous Sediment Rare H (None) /hpf Urine Bacteria Occasional H (None) /hpf Hyaline Casts 21 H (0-2) /lpf Urine Mucus Rare H (None) /hpf Urine Yeast (Budding) Few H (None) /hpf 11/19/19 11/19/19 11/19/19 Range/Units 18:44 19:22 20:03 WBC (3.8-10.6) k/uL RBC (4.30-5.90) m/uL MCV (80.0-100.0) fL MCH (25.0-35.0) pg Neutrophils # (1.3-7.7) k/uL Lymphocytes # (1.0-4.8) k/uL D-Dimer (<0.60) mg/L FEU ABG pH (7.35-7.45) ABG pCO2 (35-45) mmHg ABG pO2 (83-108) mmHg ABG Total CO2 (19-24) mmol/L ABG O2 Saturation (94-97) % Chloride (98-107) mmol/L Glucose (74-99) mg/dL POC Glucose (mg/dL) 176 H 178 H 181 H (75-99) mg/dL Calcium (8.4-10.2) mg/dL Magnesium (1.6-2.3) mg/dL Total Bilirubin (0.2-1.3) mg/dL AST (17-59) U/L ALT (4-49) U/L Alkaline Phosphatase (38-126) U/L Urine Protein (Negative) Urine Blood (Negative) Ur Leukocyte Esterase (Negative) Urine RBC (0-5) /hpf Urine WBC (0-5) /hpf Amorphous Sediment (None) /hpf Urine Bacteria (None) /hpf Hyaline Casts (0-2) /lpf Urine Mucus (None) /hpf Urine Yeast (Budding) (None) /hpf 11/19/19 11/19/19 11/19/19 Range/Units 21:06 22:14 22:15 WBC (3.8-10.6) k/uL RBC (4.30-5.90) m/uL MCV (80.0-100.0) fL MCH (25.0-35.0) pg Neutrophils # (1.3-7.7) k/uL Lymphocytes # (1.0-4.8) k/uL D-Dimer (<0.60) mg/L FEU ABG pH 7.31 L (7.35-7.45) ABG pCO2 49 H (35-45) mmHg ABG pO2 78 L (83-108) mmHg ABG Total CO2 26 H (19-24) mmol/L ABG O2 Saturation (94-97) % Chloride (98-107) mmol/L Glucose (74-99) mg/dL POC Glucose (mg/dL) 174 H 180 H (75-99) mg/dL Calcium (8.4-10.2) mg/dL Magnesium (1.6-2.3) mg/dL Total Bilirubin (0.2-1.3) mg/dL AST (17-59) U/L ALT (4-49) U/L Alkaline Phosphatase (38-126) U/L Urine Protein (Negative) Urine Blood (Negative) Ur Leukocyte Esterase (Negative) Urine RBC (0-5) /hpf Urine WBC (0-5) /hpf Amorphous Sediment (None) /hpf Urine Bacteria (None) /hpf Hyaline Casts (0-2) /lpf Urine Mucus (None) /hpf Urine Yeast (Budding) (None) /hpf 11/19/19 11/20/19 11/20/19 Range/Units 23:46 01:10 02:20 WBC (3.8-10.6) k/uL RBC (4.30-5.90) m/uL MCV (80.0-100.0) fL MCH (25.0-35.0) pg Neutrophils # (1.3-7.7) k/uL Lymphocytes # (1.0-4.8) k/uL D-Dimer (<0.60) mg/L FEU ABG pH (7.35-7.45) ABG pCO2 (35-45) mmHg ABG pO2 (83-108) mmHg ABG Total CO2 (19-24) mmol/L ABG O2 Saturation (94-97) % Chloride (98-107) mmol/L Glucose (74-99) mg/dL POC Glucose (mg/dL) 171 H 170 H 161 H (75-99) mg/dL Calcium (8.4-10.2) mg/dL Magnesium (1.6-2.3) mg/dL Total Bilirubin (0.2-1.3) mg/dL AST (17-59) U/L ALT (4-49) U/L Alkaline Phosphatase (38-126) U/L Urine Protein (Negative) Urine Blood (Negative) Ur Leukocyte Esterase (Negative) Urine RBC (0-5) /hpf Urine WBC (0-5) /hpf Amorphous Sediment (None) /hpf Urine Bacteria (None) /hpf Hyaline Casts (0-2) /lpf Urine Mucus (None) /hpf Urine Yeast (Budding) (None) /hpf 11/20/19 11/20/19 11/20/19 Range/Units 03:13 04:15 04:15 WBC 14.3 H (3.8-10.6) k/uL RBC 3.92 L (4.30-5.90) m/uL MCV 105.6 H (80.0-100.0) fL MCH 37.0 H (25.0-35.0) pg Neutrophils # 12.9 H (1.3-7.7) k/uL Lymphocytes # 0.2 L (1.0-4.8) k/uL D-Dimer (<0.60) mg/L FEU ABG pH (7.35-7.45) ABG pCO2 (35-45) mmHg ABG pO2 (83-108) mmHg ABG Total CO2 (19-24) mmol/L ABG O2 Saturation (94-97) % Chloride 110 H (98-107) mmol/L Glucose 166 H (74-99) mg/dL POC Glucose (mg/dL) 147 H (75-99) mg/dL Calcium (8.4-10.2) mg/dL Magnesium (1.6-2.3) mg/dL Total Bilirubin 1.8 H (0.2-1.3) mg/dL AST 288 H (17-59) U/L ALT 165 H (4-49) U/L Alkaline Phosphatase 151 H (38-126) U/L Urine Protein (Negative) Urine Blood (Negative) Ur Leukocyte Esterase (Negative) Urine RBC (0-5) /hpf Urine WBC (0-5) /hpf Amorphous Sediment (None) /hpf Urine Bacteria (None) /hpf Hyaline Casts (0-2) /lpf Urine Mucus (None) /hpf Urine Yeast (Budding) (None) /hpf 11/20/19 11/20/19 11/20/19 Range/Units 04:22 05:08 06:11 WBC (3.8-10.6) k/uL RBC (4.30-5.90) m/uL MCV (80.0-100.0) fL MCH (25.0-35.0) pg Neutrophils # (1.3-7.7) k/uL Lymphocytes # (1.0-4.8) k/uL D-Dimer (<0.60) mg/L FEU ABG pH (7.35-7.45) ABG pCO2 (35-45) mmHg ABG pO2 (83-108) mmHg ABG Total CO2 (19-24) mmol/L ABG O2 Saturation (94-97) % Chloride (98-107) mmol/L Glucose (74-99) mg/dL POC Glucose (mg/dL) 164 H 165 H 173 H (75-99) mg/dL Calcium (8.4-10.2) mg/dL Magnesium (1.6-2.3) mg/dL Total Bilirubin (0.2-1.3) mg/dL AST (17-59) U/L ALT (4-49) U/L Alkaline Phosphatase (38-126) U/L Urine Protein (Negative) Urine Blood (Negative) Ur Leukocyte Esterase (Negative) Urine RBC (0-5) /hpf Urine WBC (0-5) /hpf Amorphous Sediment (None) /hpf Urine Bacteria (None) /hpf Hyaline Casts (0-2) /lpf Urine Mucus (None) /hpf Urine Yeast (Budding) (None) /hpf 11/20/19 11/20/19 11/20/19 Range/Units 07:07 07:14 08:03 WBC (3.8-10.6) k/uL RBC (4.30-5.90) m/uL MCV (80.0-100.0) fL MCH (25.0-35.0) pg Neutrophils # (1.3-7.7) k/uL Lymphocytes # (1.0-4.8) k/uL D-Dimer (<0.60) mg/L FEU ABG pH 7.34 L (7.35-7.45) ABG pCO2 47 H (35-45) mmHg ABG pO2 74 L (83-108) mmHg ABG Total CO2 27 H (19-24) mmol/L ABG O2 Saturation (94-97) % Chloride (98-107) mmol/L Glucose (74-99) mg/dL POC Glucose (mg/dL) 168 H 175 H (75-99) mg/dL Calcium (8.4-10.2) mg/dL Magnesium (1.6-2.3) mg/dL Total Bilirubin (0.2-1.3) mg/dL AST (17-59) U/L ALT (4-49) U/L Alkaline Phosphatase (38-126) U/L Urine Protein (Negative) Urine Blood (Negative) Ur Leukocyte Esterase (Negative) Urine RBC (0-5) /hpf Urine WBC (0-5) /hpf Amorphous Sediment (None) /hpf Urine Bacteria (None) /hpf Hyaline Casts (0-2) /lpf Urine Mucus (None) /hpf Urine Yeast (Budding) (None) /hpf 11/20/19 11/20/19 11/20/19 Range/Units 08:58 11:02 11:52 WBC (3.8-10.6) k/uL RBC (4.30-5.90) m/uL MCV (80.0-100.0) fL MCH (25.0-35.0) pg Neutrophils # (1.3-7.7) k/uL Lymphocytes # (1.0-4.8) k/uL D-Dimer (<0.60) mg/L FEU ABG pH (7.35-7.45) ABG pCO2 (35-45) mmHg ABG pO2 (83-108) mmHg ABG Total CO2 (19-24) mmol/L ABG O2 Saturation (94-97) % Chloride (98-107) mmol/L Glucose (74-99) mg/dL POC Glucose (mg/dL) 172 H 164 H 168 H (75-99) mg/dL Calcium (8.4-10.2) mg/dL Magnesium (1.6-2.3) mg/dL Total Bilirubin (0.2-1.3) mg/dL AST (17-59) U/L ALT (4-49) U/L Alkaline Phosphatase (38-126) U/L Urine Protein (Negative) Urine Blood (Negative) Ur Leukocyte Esterase (Negative) Urine RBC (0-5) /hpf Urine WBC (0-5) /hpf Amorphous Sediment (None) /hpf Urine Bacteria (None) /hpf Hyaline Casts (0-2) /lpf Urine Mucus (None) /hpf Urine Yeast (Budding) (None) /hpf Microbiology - Last 24 Hours (Table) 11/19/19 17:40 Urine Culture - Preliminary Urine,Voided Assessment and Plan Assessment: Impression: Postoperative hypoxic respiratory failure, secondary to acute bronchospasm suspect aspiration and possible ARDS as noted on his poor oxygenation in spite of high FiO2. Chest x-ray is not classic of ARDS, hence I recommended a CT of the chest, rule out acute lung injury, and rule out thromboembolic disease/pulmonary embolism although this is also felt to be less likely. History of mild persistent asthma Status post laparoscopic repair of ventral incisional hernia postoperative day #1 History of chronic liver disease, related to alcohol abuse and related to hepatitis C. History of ascites secondary to underlying liver disease. History of alcohol abuse. History of nicotine dependence. Morbid obesity with body mass index of 41.6. Recommendation: Continue ventilatory support. Will increase the PEEP today after CT angiogram of the chest. And will hopefully try to taper down his FiO2. Continue Bronchodilators in the form of albuterol, Atrovent, Pulmicort, and Perforomist. Continue IV Solu-Medrol, and I will decrease the dose to 80 mg IV push every 6 hours. Continue to hold enteral feeding. Nasogastric tube to be placed. Antibiotics empirically in the form of Zosyn. GI prophylaxis. DVT prophylaxis. We will use Lovenox subcu. Continue to monitor in the ICU. Patient is obviously critically ill, discussed his condition with the surgeon on the case, and with other involved staff members. Mother was updated on his condition yesterday. Critical care time is 40 minutes. Time with Patient: Greater than 30
--- NOTE | 2019-11-20 13:15 | CT ---
EXAMINATION TYPE: CT chest angio for PE DATE OF EXAM: 11/20/2019 COMPARISON: None HISTORY: Elevated D dimer CT DLP: 1082.6 mGycm CONTRAST: CT chest with contrast and 3D reconstruction with MIP imaging is performed with IV Contrast, patient injected with 86 mL of Isovue 370. Contrast-enhanced CT of the chest was performed through the course of the pulmonary arteries with madalyn g and mediastinal window settings submitted. 3D reconstruction with MIP imaging was also performed. Endotracheal tube is appropriately positioned. NG tube is seen coursing towards the stomach. PULMONARY ARTERIES: The pulmonary arteries and their major tributaries are patent. I do not see damion dence for sizable filling defect to suggest pulmonary embolic process. LUNGS: Moderate bilateral right greater than left atelectasis and/or infiltrates. Small pleural effus ions noted. MEDIASTINUM: Thoracic aorta is of normal caliber,however, evaluation is limited given timing of the contrast bolus. If there is concern for thoracic aortic pathology consider ROSARIO. Correlate clinicall y . The heart is not enlarged. No evidence for mediastinal mass. No mediastinal lymph nodes greater than 1cm. HILAR STRUCTURES: No evidence for mass. No hilar lymph nodes greater than 1 cm. UPPER ABDOMEN: No significant abnormality is seen. IMPRESSION: 1. No evidence for Pulmonary embolism at this time. 2.Moderate bilateral right greater than left atelectasis and/or infiltrates. Small pleural effusions noted.
[2019-11-20 13:45] LABS: Glucose,Whole Blood 167 mg/dL (75-99)
[2019-11-20 14:12] LABS: Glucose,Whole Blood 172 mg/dL (75-99)
--- NOTE | 2019-11-20 14:21 | P.PN ---
Subjective Progress Note Date: 11/20/19 CHIEF COMPLAINT: Incarcerated incisional hernia HISTORY OF PRESENT ILLNESS: Patient seen and examined with Dr. Alvares. Laparoscopic robotic system repair of incarcerated incisional hernia And Partial omentectomy. Patient is postop day #1. Patient was extubated yesterday but developed shortness of breath and had to be reintubated. He was transferred to the ICU. He has been seen by pulmonary service. Patient remains on the vent and sedated. He is now having fevers. He is currently on IV antibiotics and Lasix. Doppler negative for DVT. Chest x-ray bilateral areas of infiltrate and small effusion CTA chest negative for PE PHYSICAL EXAM: VITAL SIGNS: Reviewed. GENERAL: Well-developed in no acute distress. HEENT: No sclera icterus. Extraocular movements grossly intact. Moist buccal mucosa. Head is atraumatic, normocephalic. ABDOMEN: Soft. Nondistended. NEUROLOGIC: Alert and oriented. Cranial nerves II through XII grossly intact. ASSESSMENT: 1. Status post Laparoscopic robotic system repair of incarcerated incisional hernia And Partial omentectomy. Postop day #1 2. Postoperative hypoxic respiratory failure secondary to acute bronchospasm, possible aspiration and possible ARDS 3. Chronic liver disease related to alcohol abuse and hepatitis C PLAN: -Continue ICU management -Continue supportive care -Continue antibiotics Physician X Ray Equipment Mechanic note has been reviewed by physician. Signing provider agrees with the documented findings, assessment, and plan of care. Objective - Vital Signs Vital signs: Vital Signs Temp 102.2 F H 11/20/19 12:00 Pulse 131 H 11/20/19 13:30 Resp 30 H 11/20/19 13:30 BP 141/71 11/20/19 00:30 Pulse Ox 91 L 11/20/19 13:30 Intake & Output 11/19/19 11/20/19 11/20/19 18:59 06:59 18:59 Intake Total 3380.388 2551.997 1533.490 Output Total 2540 465 385 Balance 610.351 4235.997 1148.490 Weight 119.1 kg 127.3 kg Intake: IV 1823 72 848 .9 20 mL/hour 140 Piperacillin-Tazobactam 3 100 .375 gm In Sodium Chloride 0.9% 100 ml @ 25 mls/hr IVPB Q8HR [facility] Rx# :[id number] Sodium Chloride 0.9% 1, 700 000 ml @ 100 mls/hr IV . Q10H [facility] Rx#:[id number] pressure bag 33 72 48 Intake, IV Titration 5675.478 5968.997 685.490 Amount Cisatracurium 200 mg In 114.038 Sodium Chloride 0.9% 180 ml @ 1 MCG/KG/MIN 7.146 mls/hr IV .Q24H [facility] Rx#: [id number] Clevidipine Butyrate 25 163.467 362.933 150 mg In Empty Bag 1 bag @ 1 MG/HR 2 mls/hr IV .Q24H [facility] Rx#:[id number] Insulin Regular 100 unit 3.703 42.690 43.834 In Sodium Chloride 0.9% 100 ml @ Per Protocol IV .Q0M [facility] Rx#:[id number] Magnesium Sulfate-D5w Pmx 200 1 gm In Dextrose/Water 1 100ml.bag @ 100 mls/hr IVPB Q1H [facility] Rx#: [id number] Piperacillin-Tazobactam 3 200 .375 gm In Sodium Chloride 0.9% 100 ml @ 25 mls/hr IVPB Q8HR [facility] Rx# :[id number] Sodium Chloride 0.9% 1, 1200 100 000 ml @ 100 mls/hr IV . Q10H [facility] Rx#:[id number] Sodium Chloride 0.9% 1, 1000 000 ml @ 999 mls/hr IV . Q1H1M [facility] Rx#:[id number] propofoL 1,000 mg In 190.218 560.336 391.656 Empty Bag 1 bag @ Titrate IV .Q0M [facility] Rx#: [id number] Output: Urine 2490 465 385 Estimated Blood Loss 50 Other: Voiding Method Indwelling Catheter Indwelling Catheter Indwelling Catheter ABP, PAP, CO, CI - Last Documented Arterial Blood Pressure 123/59 - Labs CBC & Chem 7: 11/20/19 04:15 11/20/19 04:15 Labs: Abnormal Lab Results - Last 24 Hours (Table) 11/19/19 11/19/19 11/19/19 Range/Units 14:48 15:30 16:58 WBC (3.8-10.6) k/uL RBC (4.30-5.90) m/uL MCV (80.0-100.0) fL MCH (25.0-35.0) pg Neutrophils # (1.3-7.7) k/uL Lymphocytes # (1.0-4.8) k/uL D-Dimer 1.47 H (<0.60) mg/L FEU ABG pH 7.26 L 7.25 L (7.35-7.45) ABG pCO2 54 H 52 H (35-45) mmHg ABG pO2 79 L 70 L (83-108) mmHg ABG Total CO2 26 H 25 H (19-24) mmol/L ABG O2 Saturation 92.7 L (94-97) % Chloride (98-107) mmol/L Glucose (74-99) mg/dL POC Glucose (mg/dL) (75-99) mg/dL Total Bilirubin (0.2-1.3) mg/dL AST (17-59) U/L ALT (4-49) U/L Alkaline Phosphatase (38-126) U/L Urine Protein (Negative) Urine Blood (Negative) Ur Leukocyte Esterase (Negative) Urine RBC (0-5) /hpf Urine WBC (0-5) /hpf Amorphous Sediment (None) /hpf Urine Bacteria (None) /hpf Hyaline Casts (0-2) /lpf Urine Mucus (None) /hpf Urine Yeast (Budding) (None) /hpf 11/19/19 11/19/19 11/19/19 Range/Units 17:40 17:58 18:44 WBC (3.8-10.6) k/uL RBC (4.30-5.90) m/uL MCV (80.0-100.0) fL MCH (25.0-35.0) pg Neutrophils # (1.3-7.7) k/uL Lymphocytes # (1.0-4.8) k/uL D-Dimer (<0.60) mg/L FEU ABG pH (7.35-7.45) ABG pCO2 (35-45) mmHg ABG pO2 (83-108) mmHg ABG Total CO2 (19-24) mmol/L ABG O2 Saturation (94-97) % Chloride (98-107) mmol/L Glucose (74-99) mg/dL POC Glucose (mg/dL) 198 H 176 H (75-99) mg/dL Total Bilirubin (0.2-1.3) mg/dL AST (17-59) U/L ALT (4-49) U/L Alkaline Phosphatase (38-126) U/L Urine Protein 1+ H (Negative) Urine Blood Moderate H (Negative) Ur Leukocyte Esterase Trace H (Negative) Urine RBC >182 H (0-5) /hpf Urine WBC 28 H (0-5) /hpf Amorphous Sediment Rare H (None) /hpf Urine Bacteria Occasional H (None) /hpf Hyaline Casts 21 H (0-2) /lpf Urine Mucus Rare H (None) /hpf Urine Yeast (Budding) Few H (None) /hpf 11/19/19 11/19/19 11/19/19 Range/Units 19:22 20:03 21:06 WBC (3.8-10.6) k/uL RBC (4.30-5.90) m/uL MCV (80.0-100.0) fL MCH (25.0-35.0) pg Neutrophils # (1.3-7.7) k/uL Lymphocytes # (1.0-4.8) k/uL D-Dimer (<0.60) mg/L FEU ABG pH (7.35-7.45) ABG pCO2 (35-45) mmHg ABG pO2 (83-108) mmHg ABG Total CO2 (19-24) mmol/L ABG O2 Saturation (94-97) % Chloride (98-107) mmol/L Glucose (74-99) mg/dL POC Glucose (mg/dL) 178 H 181 H 174 H (75-99) mg/dL Total Bilirubin (0.2-1.3) mg/dL AST (17-59) U/L ALT (4-49) U/L Alkaline Phosphatase (38-126) U/L Urine Protein (Negative) Urine Blood (Negative) Ur Leukocyte Esterase (Negative) Urine RBC (0-5) /hpf Urine WBC (0-5) /hpf Amorphous Sediment (None) /hpf Urine Bacteria (None) /hpf Hyaline Casts (0-2) /lpf Urine Mucus (None) /hpf Urine Yeast (Budding) (None) /hpf 11/19/19 11/19/19 11/19/19 Range/Units 22:14 22:15 23:46 WBC (3.8-10.6) k/uL RBC (4.30-5.90) m/uL MCV (80.0-100.0) fL MCH (25.0-35.0) pg Neutrophils # (1.3-7.7) k/uL Lymphocytes # (1.0-4.8) k/uL D-Dimer (<0.60) mg/L FEU ABG pH 7.31 L (7.35-7.45) ABG pCO2 49 H (35-45) mmHg ABG pO2 78 L (83-108) mmHg ABG Total CO2 26 H (19-24) mmol/L ABG O2 Saturation (94-97) % Chloride (98-107) mmol/L Glucose (74-99) mg/dL POC Glucose (mg/dL) 180 H 171 H (75-99) mg/dL Total Bilirubin (0.2-1.3) mg/dL AST (17-59) U/L ALT (4-49) U/L Alkaline Phosphatase (38-126) U/L Urine Protein (Negative) Urine Blood (Negative) Ur Leukocyte Esterase (Negative) Urine RBC (0-5) /hpf Urine WBC (0-5) /hpf Amorphous Sediment (None) /hpf Urine Bacteria (None) /hpf Hyaline Casts (0-2) /lpf Urine Mucus (None) /hpf Urine Yeast (Budding) (None) /hpf 11/20/19 11/20/19 11/20/19 Range/Units 01:10 02:20 03:13 WBC (3.8-10.6) k/uL RBC (4.30-5.90) m/uL MCV (80.0-100.0) fL MCH (25.0-35.0) pg Neutrophils # (1.3-7.7) k/uL Lymphocytes # (1.0-4.8) k/uL D-Dimer (<0.60) mg/L FEU ABG pH (7.35-7.45) ABG pCO2 (35-45) mmHg ABG pO2 (83-108) mmHg ABG Total CO2 (19-24) mmol/L ABG O2 Saturation (94-97) % Chloride (98-107) mmol/L Glucose (74-99) mg/dL POC Glucose (mg/dL) 170 H 161 H 147 H (75-99) mg/dL Total Bilirubin (0.2-1.3) mg/dL AST (17-59) U/L ALT (4-49) U/L Alkaline Phosphatase (38-126) U/L Urine Protein (Negative) Urine Blood (Negative) Ur Leukocyte Esterase (Negative) Urine RBC (0-5) /hpf Urine WBC (0-5) /hpf Amorphous Sediment (None) /hpf Urine Bacteria (None) /hpf Hyaline Casts (0-2) /lpf Urine Mucus (None) /hpf Urine Yeast (Budding) (None) /hpf 11/20/19 11/20/19 11/20/19 Range/Units 04:15 04:15 04:22 WBC 14.3 H (3.8-10.6) k/uL RBC 3.92 L (4.30-5.90) m/uL MCV 105.6 H (80.0-100.0) fL MCH 37.0 H (25.0-35.0) pg Neutrophils # 12.9 H (1.3-7.7) k/uL Lymphocytes # 0.2 L (1.0-4.8) k/uL D-Dimer (<0.60) mg/L FEU ABG pH (7.35-7.45) ABG pCO2 (35-45) mmHg ABG pO2 (83-108) mmHg ABG Total CO2 (19-24) mmol/L ABG O2 Saturation (94-97) % Chloride 110 H (98-107) mmol/L Glucose 166 H (74-99) mg/dL POC Glucose (mg/dL) 164 H (75-99) mg/dL Total Bilirubin 1.8 H (0.2-1.3) mg/dL AST 288 H (17-59) U/L ALT 165 H (4-49) U/L Alkaline Phosphatase 151 H (38-126) U/L Urine Protein (Negative) Urine Blood (Negative) Ur Leukocyte Esterase (Negative) Urine RBC (0-5) /hpf Urine WBC (0-5) /hpf Amorphous Sediment (None) /hpf Urine Bacteria (None) /hpf Hyaline Casts (0-2) /lpf Urine Mucus (None) /hpf Urine Yeast (Budding) (None) /hpf 11/20/19 11/20/19 11/20/19 Range/Units 05:08 06:11 07:07 WBC (3.8-10.6) k/uL RBC (4.30-5.90) m/uL MCV (80.0-100.0) fL MCH (25.0-35.0) pg Neutrophils # (1.3-7.7) k/uL Lymphocytes # (1.0-4.8) k/uL D-Dimer (<0.60) mg/L FEU ABG pH (7.35-7.45) ABG pCO2 (35-45) mmHg ABG pO2 (83-108) mmHg ABG Total CO2 (19-24) mmol/L ABG O2 Saturation (94-97) % Chloride (98-107) mmol/L Glucose (74-99) mg/dL POC Glucose (mg/dL) 165 H 173 H 168 H (75-99) mg/dL Total Bilirubin (0.2-1.3) mg/dL AST (17-59) U/L ALT (4-49) U/L Alkaline Phosphatase (38-126) U/L Urine Protein (Negative) Urine Blood (Negative) Ur Leukocyte Esterase (Negative) Urine RBC (0-5) /hpf Urine WBC (0-5) /hpf Amorphous Sediment (None) /hpf Urine Bacteria (None) /hpf Hyaline Casts (0-2) /lpf Urine Mucus (None) /hpf Urine Yeast (Budding) (None) /hpf 11/20/19 11/20/19 11/20/19 Range/Units 07:14 08:03 08:58 WBC (3.8-10.6) k/uL RBC (4.30-5.90) m/uL MCV (80.0-100.0) fL MCH (25.0-35.0) pg Neutrophils # (1.3-7.7) k/uL Lymphocytes # (1.0-4.8) k/uL D-Dimer (<0.60) mg/L FEU ABG pH 7.34 L (7.35-7.45) ABG pCO2 47 H (35-45) mmHg ABG pO2 74 L (83-108) mmHg ABG Total CO2 27 H (19-24) mmol/L ABG O2 Saturation (94-97) % Chloride (98-107) mmol/L Glucose (74-99) mg/dL POC Glucose (mg/dL) 175 H 172 H (75-99) mg/dL Total Bilirubin (0.2-1.3) mg/dL AST (17-59) U/L ALT (4-49) U/L Alkaline Phosphatase (38-126) U/L Urine Protein (Negative) Urine Blood (Negative) Ur Leukocyte Esterase (Negative) Urine RBC (0-5) /hpf Urine WBC (0-5) /hpf Amorphous Sediment (None) /hpf Urine Bacteria (None) /hpf Hyaline Casts (0-2) /lpf Urine Mucus (None) /hpf Urine Yeast (Budding) (None) /hpf 11/20/19 11/20/19 11/20/19 Range/Units 11:02 11:52 13:43 WBC (3.8-10.6) k/uL RBC (4.30-5.90) m/uL MCV (80.0-100.0) fL MCH (25.0-35.0) pg Neutrophils # (1.3-7.7) k/uL Lymphocytes # (1.0-4.8) k/uL D-Dimer (<0.60) mg/L FEU ABG pH (7.35-7.45) ABG pCO2 (35-45) mmHg ABG pO2 (83-108) mmHg ABG Total CO2 (19-24) mmol/L ABG O2 Saturation (94-97) % Chloride (98-107) mmol/L Glucose (74-99) mg/dL POC Glucose (mg/dL) 164 H 168 H 167 H (75-99) mg/dL Total Bilirubin (0.2-1.3) mg/dL AST (17-59) U/L ALT (4-49) U/L Alkaline Phosphatase (38-126) U/L Urine Protein (Negative) Urine Blood (Negative) Ur Leukocyte Esterase (Negative) Urine RBC (0-5) /hpf Urine WBC (0-5) /hpf Amorphous Sediment (None) /hpf Urine Bacteria (None) /hpf Hyaline Casts (0-2) /lpf Urine Mucus (None) /hpf Urine Yeast (Budding) (None) /hpf 11/20/19 Range/Units 14:11 WBC (3.8-10.6) k/uL RBC (4.30-5.90) m/uL MCV (80.0-100.0) fL MCH (25.0-35.0) pg Neutrophils # (1.3-7.7) k/uL Lymphocytes # (1.0-4.8) k/uL D-Dimer (<0.60) mg/L FEU ABG pH (7.35-7.45) ABG pCO2 (35-45) mmHg ABG pO2 (83-108) mmHg ABG Total CO2 (19-24) mmol/L ABG O2 Saturation (94-97) % Chloride (98-107) mmol/L Glucose (74-99) mg/dL POC Glucose (mg/dL) 172 H (75-99) mg/dL Total Bilirubin (0.2-1.3) mg/dL AST (17-59) U/L ALT (4-49) U/L Alkaline Phosphatase (38-126) U/L Urine Protein (Negative) Urine Blood (Negative) Ur Leukocyte Esterase (Negative) Urine RBC (0-5) /hpf Urine WBC (0-5) /hpf Amorphous Sediment (None) /hpf Urine Bacteria (None) /hpf Hyaline Casts (0-2) /lpf Urine Mucus (None) /hpf Urine Yeast (Budding) (None) /hpf Microbiology - Last 24 Hours (Table) 11/19/19 17:40 Urine Culture - Preliminary Urine,Voided
[2019-11-20 16:05] LABS: Glucose,Whole Blood 191 mg/dL (75-99)
[2019-11-20 17:11] LABS: Glucose,Whole Blood 185 mg/dL (75-99)
--- NOTE | 2019-11-20 18:08 | PN ---
PROGRESS NOTE DATE OF SERVICE: 11/20/2019 This 29-year-old gentleman who was admitted after laparoscopic robotic incarcerated incisional hernia surgery has got acute respiratory failure. Pulmonary is following the patient. Patient is intubated and mechanically ventilated. The patient had features of some atelectasis also. The patient is being treated for aspiration pneumonia as well. Dr. Alas is following the patient closely. Possibility of ARDS is also suspected. A CT angio was done today which showed no evidence of any pulmonary embolism; moderate bilateral atelectasis as well as infiltrate also noted. A 2D echo with Doppler showed an ejection fraction of 55% to 60%, which was a poor study. Past medical history reviewed. Review of systems could not be taken; the patient is mechanically intubated. CURRENT MEDICATIONS: DuoNeb, Pulmicort, Peridex, cisatracurium, clevidipine, fentanyl, Perforomist, heparin, Zosyn. PHYSICAL EXAMINATION: Patient is mechanically ventilated and sedated. Pulse 131, blood pressure 126/64, respiration 30, temperature 99.7, pulse ox 98% on mechanical ventilation. Vent settings are noted. HEENT: Conjunctivae normal. NECK: No jugular venous distention. CARDIOVASCULAR SYSTEM: S1, S2 muffled. RESPIRATORY SYSTEM: Breath sounds diminished at the bases. A few scattered rhonchi and crackles. ABDOMEN: Soft, obese. LEGS: No edema. No swelling. NERVOUS SYSTEM: No focal deficit. LABS: Accu-Cheks 172, 191. WBC 14.3. Other labs are noted. ASSESSMENT: 1. Status post laparoscopic robotic-assisted repair of incarcerated incisional hernia and partial omentectomy. 2. Postoperative acute respiratory distress with bronchial asthma, acute exacerbation, with possible aspiration pneumonia . 3. Acute hypoxic respiratory failure, on mechanical ventilation. 4. Acute delirium tremens. 5. Possible sepsis, present on admission. 6. Sinus tachycardia. 7. Increased white count. 8. Increased mean corpuscular volume. 9. Possible alcoholic hepatitis. 10.Hypomagnesemia. 11.Diabetes mellitus, type 2. 12.Obesity with body mass index 38.8. 13.History of asthma. 14.History of chronic liver disease, possibly secondary to hepatitis C related to previous IV drug abuse. 15.History of generalized edema. 16.History of hernia repair. 17.History of nicotine dependence, continued ongoing. 18.History of heroin. 19.History of tetrahydrocannabinol. RECOMMENDATIONS AND DISCUSSION: I recommend to continue current medications, continue with the monitoring, symptomatic treatment. Continue the broad-spectrum IV antibiotics, bronchodilators. Closely follow with Dr. Alas. CT angio reviewed. Possible bronchoscopy per Dr. Alas. Guarded prognosis because of multiple complex medical issues. Further recommendations to follow. MMODL / IJN: [id number] / MTDD
[2019-11-20 18:48] LABS: Amphetamine Screen,Urine Not Detected (NotDetected); Barbiturate Screen,Urine Not Detected (NotDetected); Benzodiazepines Screen,Urine Detected (NotDetected); Cocaine Screen,Urine Not Detected (NotDetected); Methadone Screen, Urine Not Detected (NotDetected); Opiate Screen,Urine Detected (NotDetected); Oxycodone Screen, Urine Not Detected (NotDetected); Phencyclidine Screen,Urine Not Detected (NotDetected); Tricyclic Antidepressant,Urine Not Detected (NotDetected); Urn Cannabinoid Scrn Detected (NotDetected)
[2019-11-20 19:13] LABS: Glucose,Whole Blood 184 mg/dL (75-99)
[2019-11-20 20:06] LABS: Glucose,Whole Blood 161 mg/dL (75-99)
[2019-11-20] MEDS ORDERED: ARTIFICIAL TEARS-HYPROMELLOSE DROPS 15 ML BTL BOTH EYES PRN (20:22)
[2019-11-20 20:57] LABS: Glucose,Whole Blood 154 mg/dL (75-99)
[2019-11-20 22:03] LABS: Glucose,Whole Blood 150 mg/dL (75-99)
[2019-11-20] MEDS: CISATRACURIUM 200 MG in SODIUM CHLORIDE 0.9% 180 ML IV SCH (23:01)
[2019-11-20 23:08] LABS: Glucose,Whole Blood 159 mg/dL (75-99)
[2019-11-20] MEDS: IPRATROPIUM-ALBUTEROL 3 ML NEB INHALATION PRN (23:26)
[2019-11-21] MEDS: HEPARIN SODIUM,PORCINE 5,000 UNIT/ML 1 ML VIAL SQ SCH ×3 (00:01→17:17)
[2019-11-21] MEDS: methylPREDNISolone SOD SUCCI 125 MG/2 ML VIAL IV SCH ×5 (00:01→17:17)
[2019-11-21] MEDS: PIPERACILLIN-TAZOBACTAM 3.375 GM in SODIUM CHLORIDE 0.9% 100 ML IVPB SCH ×3 (00:01→17:17)
[2019-11-21] MEDS: SODIUM CHLORIDE 0.9% 1,000 ML IV SCH ×2 (00:02→09:26)
[2019-11-21 00:11] LABS: Glucose,Whole Blood 165 mg/dL (75-99)
[2019-11-21] MEDS: CLEVIDIPINE BUTYRATE 25 MG in EMPTY BAG 1 BAG IV SCH ×5 (00:26→06:59)
[2019-11-21 02:00] LABS: Glucose,Whole Blood 177 mg/dL (75-99)
[2019-11-21] MEDS: INSULIN REGULAR 100 UNIT in SODIUM CHLORIDE 0.9% 100 ML IV SCH ×2 (02:00→09:09)
[2019-11-21] MEDS: IPRATROPIUM-ALBUTEROL 3 ML NEB INHALATION PRN ×3 (03:48→23:58)
[2019-11-21 04:08] LABS: Glucose,Whole Blood 192 mg/dL (75-99)
[2019-11-21 04:53] LABS: Glucose,Whole Blood 135 mg/dL (75-99)
[2019-11-21 05:45] LABS: Basophils % (A) 0 %; Eosinophils # (A) 0.1 k/uL (0-0.7); Eosinophils % (A) 1 %; HCT 26.2 % (39.0-53.0); Lymphocytes # (A) 0.4 k/uL (1.0-4.8); Lymphocytes % (A) 3 %; MCV 106.3 fL (80.0-100.0); Macrocytosis Moderate; Mean Platelet Volume 9.2; Monocytes # (A) 0.8 k/uL (0-1.0); Monocytes % (A) 5 %; Neutrophils # (A) 14.8 k/uL (1.3-7.7); Neutrophils % (A) 90 %; Platelet Count 154 k/uL (150-450); RBC 2.47 m/uL (4.30-5.90); WBC 16.4 k/uL (3.8-10.6)
[2019-11-21 05:46] LABS: Glucose,Whole Blood 181 mg/dL (75-99)
[2019-11-21 05:48] LABS: MCH 34.3 pg (25.0-35.0); MCHC 32.5 g/dL (31.0-37.0)
[2019-11-21 05:49] LABS: HGB 8.5 gm/dL (13.0-17.5)
[2019-11-21 06:08] LABS: Glucose,Whole Blood 184 mg/dL (75-99)
[2019-11-21] MEDS ORDERED: VANCOMYCIN IV PER PHARMACY 1 EACH MISC MISCELLANE PRN (06:14)
[2019-11-21 06:34] LABS: ABG Base Excess -1.7 mmol/L; ABG HCO3 25 mmol/L (21-25); ABG Oxygen Saturation 87.3 % (94-97); ABG PCO2 49 mmHg (35-45); ABG PH 7.31 (7.35-7.45); ABG TCO2 26 mmol/L (19-24)
[2019-11-21 06:37] LABS: ABG PO2 56 mmHg (83-108)
[2019-11-21] MEDS ORDERED: ACETAMINOPHEN IV (For NPO) 1,000 MG in EMPTY BAG 1 BAG IVPB STA (07:04)
[2019-11-21 07:08] LABS: Glucose,Whole Blood 185 mg/dL (75-99)
[2019-11-21] MEDS ORDERED: ALBUTEROL NEBULIZED 2.5 MG/3 ML INHALATION ONE (07:23)
[2019-11-21] MEDS ORDERED: VANCOMYCIN 2,000 MG in SODIUM CHLORIDE 0.9% 500 ML 500 ML IVPB ONE (07:30)
[2019-11-21] MEDS: IPRATROPIUM-ALBUTEROL 3 ML NEB INHALATION SCH ×4 (07:36→19:24)
[2019-11-21] MEDS: BUDESONIDE 1 MG/2 ML NEBU INHALATION SCH ×2 (07:37→19:24)
[2019-11-21 07:41] LABS: Basophils # (A) 0.1 k/uL (0-0.2); Basophils % (A) 1 %; Eosinophils % (A) 0 %; HCT 26.1 % (39.0-53.0); Lymphocytes # (A) 0.3 k/uL (1.0-4.8); Lymphocytes % (A) 2 %; MCV 105.8 fL (80.0-100.0); Macrocytosis Slight; Mean Platelet Volume 8.8; Monocytes # (A) 0.9 k/uL (0-1.0); Monocytes % (A) 6 %; Neutrophils # (A) 13.9 k/uL (1.3-7.7); Neutrophils % (A) 90 %; Platelet Count 162 k/uL (150-450); RBC 2.47 m/uL (4.30-5.90); RDW 13.3 % (11.5-15.5); WBC 15.4 k/uL (3.8-10.6)
[2019-11-21 07:46] LABS: HGB 8.4 gm/dL (13.0-17.5)
[2019-11-21 07:48] LABS: Albumin 3.8 g/dL (3.5-5.0); Calcium 8.3 mg/dL (8.4-10.2); MCH 33.7 pg (25.0-35.0); Total Protein 6.9 g/dL (6.3-8.2)
[2019-11-21] MEDS ORDERED: methylPREDNISolone SOD SUCCI 125 MG/2 ML VIAL IV STA (08:11)
[2019-11-21 08:16] LABS: Potassium 5.7 mmol/L (3.5-5.1)
[2019-11-21 08:29] LABS: ABG Base Excess -3.8 mmol/L; ABG HCO3 24 mmol/L (21-25); ABG Oxygen Saturation 86.3 % (94-97); ABG PCO2 54 mmHg (35-45); ABG PH 7.25 (7.35-7.45); ABG TCO2 25 mmol/L (19-24)
[2019-11-21 08:34] LABS: ABG PO2 57 mmHg (83-108); Allen Test Performed? no
[2019-11-21] MEDS ORDERED: SODIUM BICARB 8.4% 50 ML SYR (1 MEQ/ML) IV STA (08:35)
[2019-11-21] MEDS: FORMOTEROL FUMARATE 20 MCG/2 ML NEBU INHALATION SCH ×2 (08:46→19:24)
[2019-11-21 08:50] LABS: Glucose,Whole Blood 167 mg/dL (75-99)
[2019-11-21] MEDS: NITROGLYCERIN-D5W PMX 50 MG in DEXTROSE/WATER 1 250ML.BAG IV SCH (08:50)
[2019-11-21] MEDS: fentaNYL (PF) 1,000 MCG in SODIUM CHLORIDE 0.9% 80 ML IV SCH ×2 (09:10→18:51)
[2019-11-21] MEDS: MIDAZOLAM HCL 50 MG in SODIUM CHLORIDE 0.9% 40 ML IV SCH ×2 (09:10→12:41)
[2019-11-21 09:24] LABS: Appearance,Urine Cloudy (Clear); Bacteria,Urine Rare /hpf; Bilirubin,Urine Negative (Negative); Blood,Urine Trace (Negative); Color,Urine Light Red; Glucose,Urine (UA) Negative (Negative); Ketones,Urine Negative (Negative); Leukocyte Esterase,Urine Negative (Negative); Nitrite,Urine Negative (Negative); PH, Urine 5.5 (5.0-8.0); Protein,Urine Trace (Negative); RBC,Urine 33 /hpf (0-5); Squamous Epithelial Cell,Urine <1 /hpf (0-4); Urobilinogen,Urine <2.0 mg/dL (<2.0); WBC,Urine 6 /hpf (0-5)
[2019-11-21] MEDS ORDERED: SODIUM CHLORIDE 0.9% 500 ML 500 ML IV ONE (09:45)
[2019-11-21] MEDS: CHLORHEXIDINE GLUCONATE 15 ML CUP MUCOUS MEM SCH (10:03)
[2019-11-21] MEDS: PANTOPRAZOLE 40 MG/10 ML VIAL IVP SCH (10:03)
--- NOTE | 2019-11-21 10:05 | XR ---
EXAMINATION TYPE: XR chest 1V portable DATE OF EXAM: 11/21/2019 CLINICAL HISTORY: Tube placement TECHNIQUE: Portable semiupright view of the chest COMPARISON: 11/20/2019 chest radiograph FINDINGS: Endotracheal tube distal tip at the level of the clavicular heads. Enteric tube distal tip and side-port over the projected area of the stomach. The cardiomediastinal silhouette is unchanged. Bilateral airspace opacities and small left pleural effusion are similar. No pneumothorax. The osseo us structures are intact. IMPRESSION: Unchanged bilateral airspace opacities and small left pleural effusion.
[2019-11-21 10:14] LABS: Glucose,Whole Blood 162 mg/dL (75-99)
[2019-11-21] MEDS ORDERED: hydrALAZINE HCL 20 MG/ML 1 ML VIAL IVP PRN (11:26)
[2019-11-21 11:40] LABS: Glucose,Whole Blood 173 mg/dL (75-99)
[2019-11-21] MEDS: LACTATED RINGERS 1,000 ML IV SCH (11:45)
[2019-11-21 12:08] LABS: Glucose,Whole Blood 179 mg/dL (75-99)
--- NOTE | 2019-11-21 12:31 | CONS ---
CONSULTATION REASON FOR CONSULT: Renal failure. HISTORY OF PRESENT ILLNESS: Patient is a 29-year-old male who is status post elective ventral hernia repair. Postoperatively, patient had status asthmaticus and was intubated. Subsequently, he developed significant hypoxic respiratory failure and possibly ARDS now. Patient is on 100% FiO2, his O2 saturations are only about 85%. He is maintained on IV fluids. He is not hypotensive in fact he is hypertensive and was maintained on Cleviprex drip. Urine output was slightly low yesterday but has picked up now to about 100 to 50 mL an hour. Serum creatinine 1.36 today with potassium of 5.7, yesterday serum creatinine was 0.96 mg/dL. Hemoglobin has dropped to 8.4 from 16.2 on initial admission. No nephrotoxic agents on board. Patient has a fever and is maintained on antibiotics. He did get vancomycin as well. PAST MEDICAL HISTORY: Significant for history of IV drug abuse, asthma, fatty liver. PAST SURGICAL HISTORY: Previous hernia repair. SOCIAL HISTORY: Positive for smoking and alcohol abuse. MEDICATIONS: At home prior to admission included albuterol, Colace, Motrin. ALLERGIES: None. REVIEW OF SYSTEMS: As per HPI. PHYSICAL EXAMINATION: Patient is currently sedated on the vent. Blood pressure 135/64, heart rate 140 per minute, he is febrile with temperature of 100.2. Examination of the heart S1, S2. Examination of the lungs, bilateral breath sounds are heard. Abdomen is soft, distended. Examination of the lower extremities shows no significant edema. BODY MAKE UP ARTIST exam cannot be performed. LABS: Show sodium 138, potassium 5.7, chloride 111. CO2 is 18, BUN 32, serum creatinine 1.36, hemoglobin 8.4 g/dL. ASSESSMENT: 1. Acute kidney injury secondary to ATN, most likely ischemic associated with anemia. Patient has not had a significant drop in blood pressure. He is on vancomycin and we will need to monitor the vancomycin levels closely. He is currently nonoliguric. 2. Hyperkalemia associated with acute kidney injury as well as a possible underlying GI bleed, given the drop in the hemoglobin. Avoid using . We will treat hyperkalemia with IV insulin and D50 and correct the acidosis. This will also help with the hyperkalemia. 3. Metabolic acidosis non gap associated with renal failure. GI fluid loss. 4. Status post ventral hernia repair. 5. Hypoxia with hypoxic respiratory failure, currently on the vent and in ARDS. PLAN: Change IV fluids to bicarb drip. Repeat potassium later on today, if potassium remains elevated, we will treat with insulin and D50. Avoid use of Kayexalate. Thank you for this consultation. Will continue to follow the patient with you during his hospitalization. MMODL / BYRONN: [id number] /
[2019-11-21 12:35] LABS: HCT 29.1 % (39.0-53.0); MCV 104.7 fL (80.0-100.0); Macrocytosis Moderate; Mean Platelet Volume 9.1; Platelet Count 124 k/uL (150-450); RBC 2.78 m/uL (4.30-5.90); RDW 14.8 % (11.5-15.5); WBC 14.1 k/uL (3.8-10.6)
[2019-11-21 12:38] LABS: HGB 9.5 gm/dL (13.0-17.5); MCH 34.1 pg (25.0-35.0); MCHC 32.8 g/dL (31.0-37.0)
[2019-11-21] MEDS: SODIUM CHLORIDE 0.45% 1,000 ML with SODIUM BICARB (1 MEQ/ML) 150 ML IV SCH ×2 (12:41)
[2019-11-21 12:57] LABS: Glucose,Whole Blood 183 mg/dL (75-99)
--- NOTE | 2019-11-21 13:13 | P.PN ---
Subjective Progress Note Date: 11/21/19 Principal diagnosis: Acute hypoxic respiratory failure This is a 29-year-old white male with history of asthma, hepatitis C, chronic liver disease secondary to hepatitis C, patient underwent today a ventral incisional hernia repair done by Dr. tapia, postoperatively patient was extubated but he had to be reintubated mostly because he developed significant bronchospasm and abnormal chest x-ray showing pulmonary vascular congestion and airspace opacities of bilateral upper lobe. I saw the patient in the recovery room, patient was on mechanical ventilation, intubated the size 7.0 endotracheal tube, chest x-ray was reviewed, patient was on 100% FiO2 tidal volume is 500, assist control rate of 16 PEEP was 5. O2 saturation was marginal. Hence I recommended a dose of Lasix, recommended bronchodilators and steroids, and I have recommended changing the endotracheal tube to a size 8.0 endotracheal tube and eventual transfer to the ICU. Supposedly the patient had fairly uneventful laparoscopic repair of ventral incisional hernia. Patient is known to have history of anasarca related to liver disease mostly related to alcohol abuse and history of hepatitis C patient is also known to have history of asthma nicotine dependence, obesity with BMI of 40.7, and history of elevated liver enzymes. Patient was reevaluated today on 11/20/19, patient remains on mechanical ventilation. His ventilator settings are assist control rate of 30 volume is 450 FiO2 is still on the percent PEEP is 12. His peak airway pressure is 35 his plateau pressure is 27. ABG still reflects relative hypoxemia with a pO2 of 74 pCO2 of 47 pH of 7.34. Patient remains on Nimbex, 2 mcg/kg/m, he is also on propofol 75 mcg/kg/m, clevidipine Zak 18 mg/h IV fluid at 0.9 normal saline 100 mL/h, and I am about to start fentanyl 50 g per hour. Patient had follow-up chest x-ray this morning, and it showed mostly some atelectasis and left sided pleural effusion small to moderate. His venous Doppler yesterday was negative for deep vein thrombosis. Echocardiogram today is relatively unremarkable. Cultures are still pending. Pancultures were sent. WBC count today is 14.3. Hemoglobin is 14.5. Basic metabolic profile is normal. Liver enzymes are elevated but improved compared to yesterday urine culture is pending Patient was reevaluated today on 11/21/19. Remains intubated and on mechanical ventilation. Patient is still on assist control rate of 30 tidal volume is 450 FiO2 of 100% PEEP was increased as high as 18, however his O2 saturation continued to drop with increased PEEP, then I switch him down to a PEEP of 12. Patient is on multiple drips including Nimbex, clevidipine, the prevent at 75 mcg/kg/m, fentanyl at 0.6 mcg/kg/h insulin at 15 units per hour. Patient r emains quite ill, chest x-ray continues to show bilateral pneumonia and small left pleural effusion. Labs are abnormal hemoglobin dropped down to 8, and I plan to give the patient 2 units of packed RBCs. I was hoping I could send the patient down for a CT of the abdomen and pelvis, however he is unstable and his O2 saturation is marginal, hence discussed his low hemoglobin with the surgeon, felt that we transfuse for now, and hold on the CT of the abdomen and pelvis. Try to adjust the PEEP up hoping to improve his oxygenation, however his O2 saturation worsened with higher PEEP, then he was placed back on a PEEP of 12. ABG at present showed a pO2 of 56 pCO2 of 49 pH of 7.31. His intra-abdominal pressure was measured, there is no evidence of intra-abdominal compartment syndrome. Patient remains on fluids at 150 ML per hour. And I plan to give him 2 units of packed RBCs here shortly. CT of the chest was reviewed from yesterday, no evidence of pulmonary embolism, but he does have significant consolidation in both lobes right more so than left lower lobe. Objective - Vital Signs Vital signs: Vital Signs Temp 100.2 F H 11/21/19 12:00 Pulse 138 H 11/21/19 12:00 Resp 30 H 11/21/19 12:00 BP 139/55 11/21/19 12:00 Pulse Ox 81 L 11/21/19 12:00 Intake & Output 11/20/19 11/21/19 11/21/19 18:59 06:59 18:59 Intake Total 2520.276 2508.068 2089.103 Output Total 665 540 480 Balance 3605.922 1073.068 1609.103 Weight 124.9 kg Intake: IV 1372 1372 1403.86 0.9 NACL bolus 500 FENTANYL 22.86 Lactated ringers 120 Piperacillin-Tazobactam 3 200 100 100 .375 gm In Sodium Chloride 0.9% 100 ml @ 25 mls/hr IVPB Q8HR [facility] Rx# :[id number] Sodium Chloride 0.9% 1, 1100 1200 500 000 ml @ 150 mls/hr IV . Q6H40M [facility] Rx#:[id number] VERSED 25 acetaminophen 100 pressure bag 72 72 36 Intake, IV Titration 6803.360 3083.068 375.243 Amount Cisatracurium 200 mg In 161.888 Sodium Chloride 0.9% 180 ml @ 1 MCG/KG/MIN 7.146 mls/hr IV .Q24H [facility] Rx#: [id number] Clevidipine Butyrate 25 319.2 336.100 50 mg In Empty Bag 1 bag @ 1 MG/HR 2 mls/hr IV .Q24H [facility] Rx#:[id number] Insulin Regular 100 unit 75.532 98.744 80.951 In Sodium Chloride 0.9% 100 ml @ Per Protocol IV .Q0M [facility] Rx#:[id number] Midazolam HCl 50 mg In 17.583 Sodium Chloride 0.9% 40 ml @ 10 MG/HR 10 mls/hr IV .Q5H [facility] Rx#:[id number] Nitroglycerin-D5w Pmx 50 0.45 mg In Dextrose/Water 1 250ml.bag @ 10 MCG/MIN 3 mls/hr IV .Q24H [facility] Rx#: [id number] Sodium Chloride 0.9% 1, 100 000 ml @ 150 mls/hr IV . Q6H40M [facility] Rx#:[id number] fentaNYL (PF) 1,000 mcg 63.491 85.979 In Sodium Chloride 0.9% 80 ml @ Per Protocol IV . Q0M [facility] Rx#:[id number] propofoL 1,000 mg In 491.656 637.733 140.28 Empty Bag 1 bag @ Titrate IV .Q0M [facility] Rx#: [id number] Blood Product 310 Rc Pheresis As-3 Unit 310 [id number] Output: Urine 665 540 480 Other: Voiding Method Indwelling Catheter Indwelling Catheter Indwelling Catheter ABP, PAP, CO, CI - Last Documented Arterial Blood Pressure 145/72 - Exam Physical Exam: Revealed a 29-year-old white male obese, on mechanical ventilation patient is sedated and paralyzed. Head: Atraumatic, normocephalic. Endotracheal tube and orogastric tubes are intact. HEENT:[Neck is supple.] [No neck masses.] [No thyromegaly.] [No JVD.] Short obese neck. Chest: [Symmetrical chest expansion, rhonchi and wheezes noted bilaterally today. Cardiac Exam: Tachycardic. [Normal S1 and S2, no S3 gallop, no murmur.] Abdomen: Obese, binder is in place. Post surgical abdomen. No rebound no guarding. Extremities: [No clubbing, no edema, no cyanosis.] Skin is noted to be a little mottled. Neurological Exam: Patient is sedated, could not be assessed. Patient is sedated and paralyzed. Psychiatric: Could not be assessed. Skin: Mottling of the skin is noted especially in lower extremities - Labs CBC & Chem 7: 11/21/19 12:10 11/21/19 07:02 Labs: Abnormal Lab Results - Last 24 Hours (Table) 11/20/19 11/20/19 11/20/19 Range/Units 13:43 14:11 16:03 WBC (3.8-10.6) k/uL RBC (4.30-5.90) m/uL Hgb (13.0-17.5) gm/dL Hct (39.0-53.0) % MCV (80.0-100.0) fL Plt Count (150-450) k/uL Neutrophils # (1.3-7.7) k/uL Lymphocytes # (1.0-4.8) k/uL ABG pH (7.35-7.45) ABG pCO2 (35-45) mmHg ABG pO2 (83-108) mmHg ABG Total CO2 (19-24) mmol/L ABG O2 Saturation (94-97) % Potassium (3.5-5.1) mmol/L Chloride (98-107) mmol/L Carbon Dioxide (22-30) mmol/L BUN (9-20) mg/dL Creatinine (0.66-1.25) mg/dL Glucose (74-99) mg/dL POC Glucose (mg/dL) 167 H 172 H 191 H (75-99) mg/dL Calcium (8.4-10.2) mg/dL Total Bilirubin (0.2-1.3) mg/dL AST (17-59) U/L ALT (4-49) U/L Triglycerides (<150) mg/dL Ur Specific [place] (1.001-1.035) Urine Protein (Negative) Urine Blood (Negative) Urine RBC (0-5) /hpf Urine WBC (0-5) /hpf Urine Bacteria (None) /hpf Urine Opiates Screen (NotDetected) U Benzodiazepines Scrn (NotDetected) U Marijuana (THC) Screen (NotDetected) Crossmatch 11/20/19 11/20/19 11/20/19 Range/Units 17:10 17:55 19:11 WBC (3.8-10.6) k/uL RBC (4.30-5.90) m/uL Hgb (13.0-17.5) gm/dL Hct (39.0-53.0) % MCV (80.0-100.0) fL Plt Count (150-450) k/uL Neutrophils # (1.3-7.7) k/uL Lymphocytes # (1.0-4.8) k/uL ABG pH (7.35-7.45) ABG pCO2 (35-45) mmHg ABG pO2 (83-108) mmHg ABG Total CO2 (19-24) mmol/L ABG O2 Saturation (94-97) % Potassium (3.5-5.1) mmol/L Chloride (98-107) mmol/L Carbon Dioxide (22-30) mmol/L BUN (9-20) mg/dL Creatinine (0.66-1.25) mg/dL Glucose (74-99) mg/dL POC Glucose (mg/dL) 185 H 184 H (75-99) mg/dL Calcium (8.4-10.2) mg/dL Total Bilirubin (0.2-1.3) mg/dL AST (17-59) U/L ALT (4-49) U/L Triglycerides (<150) mg/dL Ur Specific [place] (1.001-1.035) Urine Protein (Negative) Urine Blood (Negative) Urine RBC (0-5) /hpf Urine WBC (0-5) /hpf Urine Bacteria (None) /hpf Urine Opiates Screen Detected H (NotDetected) U Benzodiazepines Scrn Detected H (NotDetected) U Marijuana (THC) Screen Detected H (NotDetected) Crossmatch 11/20/19 11/20/19 11/20/19 Range/Units 20:04 20:56 22:01 WBC (3.8-10.6) k/uL RBC (4.30-5.90) m/uL Hgb (13.0-17.5) gm/dL Hct (39.0-53.0) % MCV (80.0-100.0) fL Plt Count (150-450) k/uL Neutrophils # (1.3-7.7) k/uL Lymphocytes # (1.0-4.8) k/uL ABG pH (7.35-7.45) ABG pCO2 (35-45) mmHg ABG pO2 (83-108) mmHg ABG Total CO2 (19-24) mmol/L ABG O2 Saturation (94-97) % Potassium (3.5-5.1) mmol/L Chloride (98-107) mmol/L Carbon Dioxide (22-30) mmol/L BUN (9-20) mg/dL Creatinine (0.66-1.25) mg/dL Glucose (74-99) mg/dL POC Glucose (mg/dL) 161 H 154 H 150 H (75-99) mg/dL Calcium (8.4-10.2) mg/dL Total Bilirubin (0.2-1.3) mg/dL AST (17-59) U/L ALT (4-49) U/L Triglycerides (<150) mg/dL Ur Specific [place] (1.001-1.035) Urine Protein (Negative) Urine Blood (Negative) Urine RBC (0-5) /hpf Urine WBC (0-5) /hpf Urine Bacteria (None) /hpf Urine Opiates Screen (NotDetected) U Benzodiazepines Scrn (NotDetected) U Marijuana (THC) Screen (NotDetected) Crossmatch 11/20/19 11/21/19 11/21/19 Range/Units 23:07 00:10 01:59 WBC (3.8-10.6) k/uL RBC (4.30-5.90) m/uL Hgb (13.0-17.5) gm/dL Hct (39.0-53.0) % MCV (80.0-100.0) fL Plt Count (150-450) k/uL Neutrophils # (1.3-7.7) k/uL Lymphocytes # (1.0-4.8) k/uL ABG pH (7.35-7.45) ABG pCO2 (35-45) mmHg ABG pO2 (83-108) mmHg ABG Total CO2 (19-24) mmol/L ABG O2 Saturation (94-97) % Potassium (3.5-5.1) mmol/L Chloride (98-107) mmol/L Carbon Dioxide (22-30) mmol/L BUN (9-20) mg/dL Creatinine (0.66-1.25) mg/dL Glucose (74-99) mg/dL POC Glucose (mg/dL) 159 H 165 H 177 H (75-99) mg/dL Calcium (8.4-10.2) mg/dL Total Bilirubin (0.2-1.3) mg/dL AST (17-59) U/L ALT (4-49) U/L Triglycerides (<150) mg/dL Ur Specific [place] (1.001-1.035) Urine Protein (Negative) Urine Blood (Negative) Urine RBC (0-5) /hpf Urine WBC (0-5) /hpf Urine Bacteria (None) /hpf Urine Opiates Screen (NotDetected) U Benzodiazepines Scrn (NotDetected) U Marijuana (THC) Screen (NotDetected) Crossmatch 11/21/19 11/21/19 11/21/19 Range/Units 04:06 04:50 04:51 WBC 16.4 H (3.8-10.6) k/uL RBC 2.47 L (4.30-5.90) m/uL Hgb 8.5 L D (13.0-17.5) gm/dL Hct 26.2 L (39.0-53.0) % MCV 106.3 H (80.0-100.0) fL Plt Count (150-450) k/uL Neutrophils # 14.8 H (1.3-7.7) k/uL Lymphocytes # 0.4 L (1.0-4.8) k/uL ABG pH (7.35-7.45) ABG pCO2 (35-45) mmHg ABG pO2 (83-108) mmHg ABG Total CO2 (19-24) mmol/L ABG O2 Saturation (94-97) % Potassium (3.5-5.1) mmol/L Chloride (98-107) mmol/L Carbon Dioxide (22-30) mmol/L BUN (9-20) mg/dL Creatinine (0.66-1.25) mg/dL Glucose (74-99) mg/dL POC Glucose (mg/dL) 192 H 135 H (75-99) mg/dL Calcium (8.4-10.2) mg/dL Total Bilirubin (0.2-1.3) mg/dL AST (17-59) U/L ALT (4-49) U/L Triglycerides (<150) mg/dL Ur Specific [place] (1.001-1.035) Urine Protein (Negative) Urine Blood (Negative) Urine RBC (0-5) /hpf Urine WBC (0-5) /hpf Urine Bacteria (None) /hpf Urine Opiates Screen (NotDetected) U Benzodiazepines Scrn (NotDetected) U Marijuana (THC) Screen (NotDetected) Crossmatch 11/21/19 11/21/19 11/21/19 Range/Units 05:44 06:06 06:31 WBC (3.8-10.6) k/uL RBC (4.30-5.90) m/uL Hgb (13.0-17.5) gm/dL Hct (39.0-53.0) % MCV (80.0-100.0) fL Plt Count (150-450) k/uL Neutrophils # (1.3-7.7) k/uL Lymphocytes # (1.0-4.8) k/uL ABG pH 7.31 L (7.35-7.45) ABG pCO2 49 H (35-45) mmHg ABG pO2 56 L* (83-108) mmHg ABG Total CO2 26 H (19-24) mmol/L ABG O2 Saturation 87.3 L (94-97) % Potassium (3.5-5.1) mmol/L Chloride (98-107) mmol/L Carbon Dioxide (22-30) mmol/L BUN (9-20) mg/dL Creatinine (0.66-1.25) mg/dL Glucose (74-99) mg/dL POC Glucose (mg/dL) 181 H 184 H (75-99) mg/dL Calcium (8.4-10.2) mg/dL Total Bilirubin (0.2-1.3) mg/dL AST (17-59) U/L ALT (4-49) U/L Triglycerides (<150) mg/dL Ur Specific [place] (1.001-1.035) Urine Protein (Negative) Urine Blood (Negative) Urine RBC (0-5) /hpf Urine WBC (0-5) /hpf Urine Bacteria (None) /hpf Urine Opiates Screen (NotDetected) U Benzodiazepines Scrn (NotDetected) U Marijuana (THC) Screen (NotDetected) Crossmatch 11/21/19 11/21/19 11/21/19 Range/Units 07:02 07:02 07:02 WBC 15.4 H (3.8-10.6) k/uL RBC 2.47 L (4.30-5.90) m/uL Hgb 8.4 L (13.0-17.5) gm/dL Hct 26.1 L (39.0-53.0) % MCV 105.8 H (80.0-100.0) fL Plt Count (150-450) k/uL Neutrophils # 13.9 H (1.3-7.7) k/uL Lymphocytes # 0.3 L (1.0-4.8) k/uL ABG pH (7.35-7.45) ABG pCO2 (35-45) mmHg ABG pO2 (83-108) mmHg ABG Total CO2 (19-24) mmol/L ABG O2 Saturation (94-97) % Potassium 5.7 H (3.5-5.1) mmol/L Chloride 111 H (98-107) mmol/L Carbon Dioxide 18 L (22-30) mmol/L BUN 32 H (9-20) mg/dL Creatinine 1.36 H (0.66-1.25) mg/dL Glucose 150 H (74-99) mg/dL POC Glucose (mg/dL) (75-99) mg/dL Calcium 8.3 L (8.4-10.2) mg/dL Total Bilirubin 2.0 H (0.2-1.3) mg/dL AST 156 H (17-59) U/L ALT 99 H (4-49) U/L Triglycerides (<150) mg/dL Ur Specific [place] (1.001-1.035) Urine Protein (Negative) Urine Blood (Negative) Urine RBC (0-5) /hpf Urine WBC (0-5) /hpf Urine Bacteria (None) /hpf Urine Opiates Screen (NotDetected) U Benzodiazepines Scrn (NotDetected) U Marijuana (THC) Screen (NotDetected) Crossmatch See Detail 11/21/19 11/21/19 11/21/19 Range/Units 07:02 07:07 08:25 WBC (3.8-10.6) k/uL RBC (4.30-5.90) m/uL Hgb (13.0-17.5) gm/dL Hct (39.0-53.0) % MCV (80.0-100.0) fL Plt Count (150-450) k/uL Neutrophils # (1.3-7.7) k/uL Lymphocytes # (1.0-4.8) k/uL ABG pH 7.25 L (7.35-7.45) ABG pCO2 54 H (35-45) mmHg ABG pO2 57 L* (83-108) mmHg ABG Total CO2 25 H (19-24) mmol/L ABG O2 Saturation 86.3 L (94-97) % Potassium (3.5-5.1) mmol/L Chloride (98-107) mmol/L Carbon Dioxide (22-30) mmol/L BUN (9-20) mg/dL Creatinine (0.66-1.25) mg/dL Glucose (74-99) mg/dL POC Glucose (mg/dL) 185 H (75-99) mg/dL Calcium (8.4-10.2) mg/dL Total Bilirubin (0.2-1.3) mg/dL AST (17-59) U/L ALT (4-49) U/L Triglycerides 2338 H (<150) mg/dL Ur Specific [place] (1.001-1.035) Urine Protein (Negative) Urine Blood (Negative) Urine RBC (0-5) /hpf Urine WBC (0-5) /hpf Urine Bacteria (None) /hpf Urine Opiates Screen (NotDetected) U Benzodiazepines Scrn (NotDetected) U Marijuana (THC) Screen (NotDetected) Crossmatch 11/21/19 11/21/19 11/21/19 Range/Units 08:42 08:48 10:13 WBC (3.8-10.6) k/uL RBC (4.30-5.90) m/uL Hgb (13.0-17.5) gm/dL Hct (39.0-53.0) % MCV (80.0-100.0) fL Plt Count (150-450) k/uL Neutrophils # (1.3-7.7) k/uL Lymphocytes # (1.0-4.8) k/uL ABG pH (7.35-7.45) ABG pCO2 (35-45) mmHg ABG pO2 (83-108) mmHg ABG Total CO2 (19-24) mmol/L ABG O2 Saturation (94-97) % Potassium (3.5-5.1) mmol/L Chloride (98-107) mmol/L Carbon Dioxide (22-30) mmol/L BUN (9-20) mg/dL Creatinine (0.66-1.25) mg/dL Glucose (74-99) mg/dL POC Glucose (mg/dL) 167 H 162 H (75-99) mg/dL Calcium (8.4-10.2) mg/dL Total Bilirubin (0.2-1.3) mg/dL AST (17-59) U/L ALT (4-49) U/L Triglycerides (<150) mg/dL Ur Specific [place] 1.040 H (1.001-1.035) Urine Protein Trace H (Negative) Urine Blood Trace H (Negative) Urine RBC 33 H (0-5) /hpf Urine WBC 6 H (0-5) /hpf Urine Bacteria Rare H (None) /hpf Urine Opiates Screen (NotDetected) U Benzodiazepines Scrn (NotDetected) U Marijuana (THC) Screen (NotDetected) Crossmatch 11/21/19 11/21/19 11/21/19 Range/Units 11:38 12:06 12:10 WBC 14.1 H (3.8-10.6) k/uL RBC 2.78 L (4.30-5.90) m/uL Hgb 9.5 L (13.0-17.5) gm/dL Hct 29.1 L (39.0-53.0) % MCV 104.7 H (80.0-100.0) fL Plt Count 124 L (150-450) k/uL Neutrophils # (1.3-7.7) k/uL Lymphocytes # (1.0-4.8) k/uL ABG pH (7.35-7.45) ABG pCO2 (35-45) mmHg ABG pO2 (83-108) mmHg ABG Total CO2 (19-24) mmol/L ABG O2 Saturation (94-97) % Potassium (3.5-5.1) mmol/L Chloride (98-107) mmol/L Carbon Dioxide (22-30) mmol/L BUN (9-20) mg/dL Creatinine (0.66-1.25) mg/dL Glucose (74-99) mg/dL POC Glucose (mg/dL) 173 H 179 H (75-99) mg/dL Calcium (8.4-10.2) mg/dL Total Bilirubin (0.2-1.3) mg/dL AST (17-59) U/L ALT (4-49) U/L Triglycerides (<150) mg/dL Ur Specific [place] (1.001-1.035) Urine Protein (Negative) Urine Blood (Negative) Urine RBC (0-5) /hpf Urine WBC (0-5) /hpf Urine Bacteria (None) /hpf Urine Opiates Screen (NotDetected) U Benzodiazepines Scrn (NotDetected) U Marijuana (THC) Screen (NotDetected) Crossmatch 11/21/19 Range/Units 12:56 WBC (3.8-10.6) k/uL RBC (4.30-5.90) m/uL Hgb (13.0-17.5) gm/dL Hct (39.0-53.0) % MCV (80.0-100.0) fL Plt Count (150-450) k/uL Neutrophils # (1.3-7.7) k/uL Lymphocytes # (1.0-4.8) k/uL ABG pH (7.35-7.45) ABG pCO2 (35-45) mmHg ABG pO2 (83-108) mmHg ABG Total CO2 (19-24) mmol/L ABG O2 Saturation (94-97) % Potassium (3.5-5.1) mmol/L Chloride (98-107) mmol/L Carbon Dioxide (22-30) mmol/L BUN (9-20) mg/dL Creatinine (0.66-1.25) mg/dL Glucose (74-99) mg/dL POC Glucose (mg/dL) 183 H (75-99) mg/dL Calcium (8.4-10.2) mg/dL Total Bilirubin (0.2-1.3) mg/dL AST (17-59) U/L ALT (4-49) U/L Triglycerides (<150) mg/dL Ur Specific [place] (1.001-1.035) Urine Protein (Negative) Urine Blood (Negative) Urine RBC (0-5) /hpf Urine WBC (0-5) /hpf Urine Bacteria (None) /hpf Urine Opiates Screen (NotDetected) U Benzodiazepines Scrn (NotDetected) U Marijuana (THC) Screen (NotDetected) Crossmatch Microbiology - Last 24 Hours (Table) 11/20/19 23:29 Sputum Culture - Preliminary Sputum 11/19/19 17:38 Blood Culture - Preliminary Blood No Growth after 24 hours 11/19/19 17:45 Blood Culture - Preliminary Blood No Growth after 24 hours 11/19/19 17:40 Urine Culture - Final Urine,Voided Assessment and Plan Assessment: Impression: Postoperative hypoxic respiratory failure, secondary to acute bronchospasm , possible aspiration pneumonia, and possible acute lung injury, pulmonary embolism was basically ruled out. Acute asthma exacerbation. History of mild persistent asthma Status post laparoscopic repair of ventral incisional hernia postoperative day #2 History of chronic liver disease, related to alcohol abuse and related to hepatitis C. History of ascites secondary to underlying liver disease. History of alcohol abuse. History of nicotine dependence. Morbid obesity with body mass index of 41.6. Significant drop in hemoglobin over the last 2 days suggestive of intra- abdominal bleeding, however patient is not stable enough to have a CT of the abdomen and pelvis today. We'll transfuse and monitor closely. Surgery aware of this new development. Recommendation: Continue ventilatory support. Adjust PEEP accordingly. Patient is now on 12 of PEEP, had poor oxygenation with higher PEEP. Continue Bronchodilators in the form of albuterol, Atrovent, Pulmicort, and Perforomist. Continue IV Solu-Medrol, dose was increased again to 100 mg IV push every 6 hours. Continue to hold enteral feeding. Nasogastric tube to be placed. Antibiotics empirically in the form of Zosyn. Added to Zosyn since the patient is still spiking fevers. GI prophylaxis. Continued DVT prophylaxis. Hold any heparin products for now. Continue to monitor in the ICU. Patient is obviously extremely critically ill, we'll discuss his condition with mother today. Discussed his condition with different staff physicians including surgery on the case. Prognosis seems to be extremely poor and guarded at this point. Patient is not in any condition to consider transfer to a tertiary care institution for ECMO since he is basically unstable. We'll continue to follow closely in the ICU. Critical care time is 45 minutes Time with Patient: Greater than 30
--- NOTE | 2019-11-21 14:11 | P.PN ---
Subjective Progress Note Date: 11/21/19 CHIEF COMPLAINT: Incarcerated incisional hernia HISTORY OF PRESENT ILLNESS: Patient seen and examined with Dr. Alvares. Status post laparoscopic robotic system repair of incarcerated incisional hernia And Partial omentectomy. Patient remains intubated and on mechanical ventilation. Even with increase of PEEP Patient to follow closely by critical care service. They've made adjustments in medications. Patient did have a drop in his hemoglobin from 14.5-8.4 he is receiving 1 unit of blood. Temp 102.8 He is tachycardic with a heart rate 138 WBC 15.4 PHYSICAL EXAM: VITAL SIGNS: Reviewed. GENERAL: Well-developed in no acute distress. HEENT: No sclera icterus. Extraocular movements grossly intact. Moist buccal mucosa. Head is atraumatic, normocephalic. ABDOMEN: Soft. Nondistended. Abdominal binder in place NEUROLOGIC: Patient is intubated and sedated ASSESSMENT: 1. Status post Laparoscopic robotic system repair of incarcerated incisional hernia And Partial omentectomy. Postop day #2 2. Postoperative hypoxic respiratory failure secondary to acute bronchospasm, possible aspiration and possible Acute lung injury 3. Chronic liver disease related to alcohol abuse and hepatitis C PLAN: -Continue ICU management -Continue supportive care -Continue antibiotics -Patient receiving blood transfusion Physician Customer Advisor Specialist note has been reviewed by physician. Signing provider agrees with the documented findings, assessment, and plan of care. Objective - Vital Signs Vital signs: Vital Signs Temp 100.2 F H 11/21/19 12:00 Pulse 135 H 11/21/19 13:15 Resp 30 H 11/21/19 13:15 BP 139/55 11/21/19 13:15 Pulse Ox 84 L 11/21/19 13:15 Intake & Output 11/20/19 11/21/19 11/21/19 18:59 06:59 18:59 Intake Total 2520.276 2508.068 2182.723 Output Total 665 540 555 Balance 8986.790 1960.068 1627.723 Weight 124.9 kg Intake: IV 1372 1372 1497.48 0.9 NACL bolus 500 FENTANYL 30.48 Lactated ringers 120 Piperacillin-Tazobactam 3 200 100 100 .375 gm In Sodium Chloride 0.9% 100 ml @ 25 mls/hr IVPB Q8HR [facility] Rx# :[id number] Sodium Chloride 0.45% 1, 70 000 ml @ 70 mls/hr IV . [id number] [facility] with Sodium Bicarb (1 Meq/ml) 150 ml Rx#:[id number] Sodium Chloride 0.9% 1, 1100 1200 500 000 ml @ 150 mls/hr IV . Q6H40M [facility] Rx#:[id number] VERSED 35 acetaminophen 100 pressure bag 72 72 42 Intake, IV Titration 6142.513 1754.068 375.243 Amount Cisatracurium 200 mg In 161.888 Sodium Chloride 0.9% 180 ml @ 1 MCG/KG/MIN 7.146 mls/hr IV .Q24H [facility] Rx#: [id number] Clevidipine Butyrate 25 319.2 336.100 50 mg In Empty Bag 1 bag @ 1 MG/HR 2 mls/hr IV .Q24H [facility] Rx#:[id number] Insulin Regular 100 unit 75.532 98.744 80.951 In Sodium Chloride 0.9% 100 ml @ Per Protocol IV .Q0M [facility] Rx#:[id number] Midazolam HCl 50 mg In 17.583 Sodium Chloride 0.9% 40 ml @ 10 MG/HR 10 mls/hr IV .Q5H [facility] Rx#:[id number] Nitroglycerin-D5w Pmx 50 0.45 mg In Dextrose/Water 1 250ml.bag @ 10 MCG/MIN 3 mls/hr IV .Q24H [facility] Rx#: [id number] Sodium Chloride 0.9% 1, 100 000 ml @ 150 mls/hr IV . Q6H40M [facility] Rx#:[id number] fentaNYL (PF) 1,000 mcg 63.491 85.979 In Sodium Chloride 0.9% 80 ml @ Per Protocol IV . Q0M [facility] Rx#:[id number] propofoL 1,000 mg In 491.656 637.733 140.28 Empty Bag 1 bag @ Titrate IV .Q0M [facility] Rx#: [id number] Blood Product 310 Rc Pheresis As-3 Unit 310 [id number] Output: Urine 665 540 555 Other: Voiding Method Indwelling Catheter Indwelling Catheter Indwelling Catheter ABP, PAP, CO, CI - Last Documented Arterial Blood Pressure 142/65 - Labs CBC & Chem 7: 11/21/19 12:10 11/21/19 07:02 Labs: Abnormal Lab Results - Last 24 Hours (Table) 11/20/19 11/20/19 11/20/19 Range/Units 14:11 16:03 17:10 WBC (3.8-10.6) k/uL RBC (4.30-5.90) m/uL Hgb (13.0-17.5) gm/dL Hct (39.0-53.0) % MCV (80.0-100.0) fL Plt Count (150-450) k/uL Neutrophils # (1.3-7.7) k/uL Lymphocytes # (1.0-4.8) k/uL ABG pH (7.35-7.45) ABG pCO2 (35-45) mmHg ABG pO2 (83-108) mmHg ABG Total CO2 (19-24) mmol/L ABG O2 Saturation (94-97) % Potassium (3.5-5.1) mmol/L Chloride (98-107) mmol/L Carbon Dioxide (22-30) mmol/L BUN (9-20) mg/dL Creatinine (0.66-1.25) mg/dL Glucose (74-99) mg/dL POC Glucose (mg/dL) 172 H 191 H 185 H (75-99) mg/dL Calcium (8.4-10.2) mg/dL Total Bilirubin (0.2-1.3) mg/dL AST (17-59) U/L ALT (4-49) U/L Triglycerides (<150) mg/dL Ur Specific [place] (1.001-1.035) Urine Protein (Negative) Urine Blood (Negative) Urine RBC (0-5) /hpf Urine WBC (0-5) /hpf Urine Bacteria (None) /hpf Urine Opiates Screen (NotDetected) U Benzodiazepines Scrn (NotDetected) U Marijuana (THC) Screen (NotDetected) Crossmatch 11/20/19 11/20/19 11/20/19 Range/Units 17:55 19:11 20:04 WBC (3.8-10.6) k/uL RBC (4.30-5.90) m/uL Hgb (13.0-17.5) gm/dL Hct (39.0-53.0) % MCV (80.0-100.0) fL Plt Count (150-450) k/uL Neutrophils # (1.3-7.7) k/uL Lymphocytes # (1.0-4.8) k/uL ABG pH (7.35-7.45) ABG pCO2 (35-45) mmHg ABG pO2 (83-108) mmHg ABG Total CO2 (19-24) mmol/L ABG O2 Saturation (94-97) % Potassium (3.5-5.1) mmol/L Chloride (98-107) mmol/L Carbon Dioxide (22-30) mmol/L BUN (9-20) mg/dL Creatinine (0.66-1.25) mg/dL Glucose (74-99) mg/dL POC Glucose (mg/dL) 184 H 161 H (75-99) mg/dL Calcium (8.4-10.2) mg/dL Total Bilirubin (0.2-1.3) mg/dL AST (17-59) U/L ALT (4-49) U/L Triglycerides (<150) mg/dL Ur Specific [place] (1.001-1.035) Urine Protein (Negative) Urine Blood (Negative) Urine RBC (0-5) /hpf Urine WBC (0-5) /hpf Urine Bacteria (None) /hpf Urine Opiates Screen Detected H (NotDetected) U Benzodiazepines Scrn Detected H (NotDetected) U Marijuana (THC) Screen Detected H (NotDetected) Crossmatch 11/20/19 11/20/19 11/20/19 Range/Units 20:56 22:01 23:07 WBC (3.8-10.6) k/uL RBC (4.30-5.90) m/uL Hgb (13.0-17.5) gm/dL Hct (39.0-53.0) % MCV (80.0-100.0) fL Plt Count (150-450) k/uL Neutrophils # (1.3-7.7) k/uL Lymphocytes # (1.0-4.8) k/uL ABG pH (7.35-7.45) ABG pCO2 (35-45) mmHg ABG pO2 (83-108) mmHg ABG Total CO2 (19-24) mmol/L ABG O2 Saturation (94-97) % Potassium (3.5-5.1) mmol/L Chloride (98-107) mmol/L Carbon Dioxide (22-30) mmol/L BUN (9-20) mg/dL Creatinine (0.66-1.25) mg/dL Glucose (74-99) mg/dL POC Glucose (mg/dL) 154 H 150 H 159 H (75-99) mg/dL Calcium (8.4-10.2) mg/dL Total Bilirubin (0.2-1.3) mg/dL AST (17-59) U/L ALT (4-49) U/L Triglycerides (<150) mg/dL Ur Specific [place] (1.001-1.035) Urine Protein (Negative) Urine Blood (Negative) Urine RBC (0-5) /hpf Urine WBC (0-5) /hpf Urine Bacteria (None) /hpf Urine Opiates Screen (NotDetected) U Benzodiazepines Scrn (NotDetected) U Marijuana (THC) Screen (NotDetected) Crossmatch 11/21/19 11/21/19 11/21/19 Range/Units 00:10 01:59 04:06 WBC (3.8-10.6) k/uL RBC (4.30-5.90) m/uL Hgb (13.0-17.5) gm/dL Hct (39.0-53.0) % MCV (80.0-100.0) fL Plt Count (150-450) k/uL Neutrophils # (1.3-7.7) k/uL Lymphocytes # (1.0-4.8) k/uL ABG pH (7.35-7.45) ABG pCO2 (35-45) mmHg ABG pO2 (83-108) mmHg ABG Total CO2 (19-24) mmol/L ABG O2 Saturation (94-97) % Potassium (3.5-5.1) mmol/L Chloride (98-107) mmol/L Carbon Dioxide (22-30) mmol/L BUN (9-20) mg/dL Creatinine (0.66-1.25) mg/dL Glucose (74-99) mg/dL POC Glucose (mg/dL) 165 H 177 H 192 H (75-99) mg/dL Calcium (8.4-10.2) mg/dL Total Bilirubin (0.2-1.3) mg/dL AST (17-59) U/L ALT (4-49) U/L Triglycerides (<150) mg/dL Ur Specific [place] (1.001-1.035) Urine Protein (Negative) Urine Blood (Negative) Urine RBC (0-5) /hpf Urine WBC (0-5) /hpf Urine Bacteria (None) /hpf Urine Opiates Screen (NotDetected) U Benzodiazepines Scrn (NotDetected) U Marijuana (THC) Screen (NotDetected) Crossmatch 11/21/19 11/21/19 11/21/19 Range/Units 04:50 04:51 05:44 WBC 16.4 H (3.8-10.6) k/uL RBC 2.47 L (4.30-5.90) m/uL Hgb 8.5 L D (13.0-17.5) gm/dL Hct 26.2 L (39.0-53.0) % MCV 106.3 H (80.0-100.0) fL Plt Count (150-450) k/uL Neutrophils # 14.8 H (1.3-7.7) k/uL Lymphocytes # 0.4 L (1.0-4.8) k/uL ABG pH (7.35-7.45) ABG pCO2 (35-45) mmHg ABG pO2 (83-108) mmHg ABG Total CO2 (19-24) mmol/L ABG O2 Saturation (94-97) % Potassium (3.5-5.1) mmol/L Chloride (98-107) mmol/L Carbon Dioxide (22-30) mmol/L BUN (9-20) mg/dL Creatinine (0.66-1.25) mg/dL Glucose (74-99) mg/dL POC Glucose (mg/dL) 135 H 181 H (75-99) mg/dL Calcium (8.4-10.2) mg/dL Total Bilirubin (0.2-1.3) mg/dL AST (17-59) U/L ALT (4-49) U/L Triglycerides (<150) mg/dL Ur Specific [place] (1.001-1.035) Urine Protein (Negative) Urine Blood (Negative) Urine RBC (0-5) /hpf Urine WBC (0-5) /hpf Urine Bacteria (None) /hpf Urine Opiates Screen (NotDetected) U Benzodiazepines Scrn (NotDetected) U Marijuana (THC) Screen (NotDetected) Crossmatch 11/21/19 11/21/19 11/21/19 Range/Units 06:06 06:31 07:02 WBC (3.8-10.6) k/uL RBC (4.30-5.90) m/uL Hgb (13.0-17.5) gm/dL Hct (39.0-53.0) % MCV (80.0-100.0) fL Plt Count (150-450) k/uL Neutrophils # (1.3-7.7) k/uL Lymphocytes # (1.0-4.8) k/uL ABG pH 7.31 L (7.35-7.45) ABG pCO2 49 H (35-45) mmHg ABG pO2 56 L* (83-108) mmHg ABG Total CO2 26 H (19-24) mmol/L ABG O2 Saturation 87.3 L (94-97) % Potassium (3.5-5.1) mmol/L Chloride (98-107) mmol/L Carbon Dioxide (22-30) mmol/L BUN (9-20) mg/dL Creatinine (0.66-1.25) mg/dL Glucose (74-99) mg/dL POC Glucose (mg/dL) 184 H (75-99) mg/dL Calcium (8.4-10.2) mg/dL Total Bilirubin (0.2-1.3) mg/dL AST (17-59) U/L ALT (4-49) U/L Triglycerides (<150) mg/dL Ur Specific [place] (1.001-1.035) Urine Protein (Negative) Urine Blood (Negative) Urine RBC (0-5) /hpf Urine WBC (0-5) /hpf Urine Bacteria (None) /hpf Urine Opiates Screen (NotDetected) U Benzodiazepines Scrn (NotDetected) U Marijuana (THC) Screen (NotDetected) Crossmatch See Detail 11/21/19 11/21/19 11/21/19 Range/Units 07:02 07:02 07:02 WBC 15.4 H (3.8-10.6) k/uL RBC 2.47 L (4.30-5.90) m/uL Hgb 8.4 L (13.0-17.5) gm/dL Hct 26.1 L (39.0-53.0) % MCV 105.8 H (80.0-100.0) fL Plt Count (150-450) k/uL Neutrophils # 13.9 H (1.3-7.7) k/uL Lymphocytes # 0.3 L (1.0-4.8) k/uL ABG pH (7.35-7.45) ABG pCO2 (35-45) mmHg ABG pO2 (83-108) mmHg ABG Total CO2 (19-24) mmol/L ABG O2 Saturation (94-97) % Potassium 5.7 H (3.5-5.1) mmol/L Chloride 111 H (98-107) mmol/L Carbon Dioxide 18 L (22-30) mmol/L BUN 32 H (9-20) mg/dL Creatinine 1.36 H (0.66-1.25) mg/dL Glucose 150 H (74-99) mg/dL POC Glucose (mg/dL) (75-99) mg/dL Calcium 8.3 L (8.4-10.2) mg/dL Total Bilirubin 2.0 H (0.2-1.3) mg/dL AST 156 H (17-59) U/L ALT 99 H (4-49) U/L Triglycerides 2338 H (<150) mg/dL Ur Specific [place] (1.001-1.035) Urine Protein (Negative) Urine Blood (Negative) Urine RBC (0-5) /hpf Urine WBC (0-5) /hpf Urine Bacteria (None) /hpf Urine Opiates Screen (NotDetected) U Benzodiazepines Scrn (NotDetected) U Marijuana (THC) Screen (NotDetected) Crossmatch 11/21/19 11/21/19 11/21/19 Range/Units 07:07 08:25 08:42 WBC (3.8-10.6) k/uL RBC (4.30-5.90) m/uL Hgb (13.0-17.5) gm/dL Hct (39.0-53.0) % MCV (80.0-100.0) fL Plt Count (150-450) k/uL Neutrophils # (1.3-7.7) k/uL Lymphocytes # (1.0-4.8) k/uL ABG pH 7.25 L (7.35-7.45) ABG pCO2 54 H (35-45) mmHg ABG pO2 57 L* (83-108) mmHg ABG Total CO2 25 H (19-24) mmol/L ABG O2 Saturation 86.3 L (94-97) % Potassium (3.5-5.1) mmol/L Chloride (98-107) mmol/L Carbon Dioxide (22-30) mmol/L BUN (9-20) mg/dL Creatinine (0.66-1.25) mg/dL Glucose (74-99) mg/dL POC Glucose (mg/dL) 185 H (75-99) mg/dL Calcium (8.4-10.2) mg/dL Total Bilirubin (0.2-1.3) mg/dL AST (17-59) U/L ALT (4-49) U/L Triglycerides (<150) mg/dL Ur Specific [place] 1.040 H (1.001-1.035) Urine Protein Trace H (Negative) Urine Blood Trace H (Negative) Urine RBC 33 H (0-5) /hpf Urine WBC 6 H (0-5) /hpf Urine Bacteria Rare H (None) /hpf Urine Opiates Screen (NotDetected) U Benzodiazepines Scrn (NotDetected) U Marijuana (THC) Screen (NotDetected) Crossmatch 11/21/19 11/21/19 11/21/19 Range/Units 08:48 10:13 11:38 WBC (3.8-10.6) k/uL RBC (4.30-5.90) m/uL Hgb (13.0-17.5) gm/dL Hct (39.0-53.0) % MCV (80.0-100.0) fL Plt Count (150-450) k/uL Neutrophils # (1.3-7.7) k/uL Lymphocytes # (1.0-4.8) k/uL ABG pH (7.35-7.45) ABG pCO2 (35-45) mmHg ABG pO2 (83-108) mmHg ABG Total CO2 (19-24) mmol/L ABG O2 Saturation (94-97) % Potassium (3.5-5.1) mmol/L Chloride (98-107) mmol/L Carbon Dioxide (22-30) mmol/L BUN (9-20) mg/dL Creatinine (0.66-1.25) mg/dL Glucose (74-99) mg/dL POC Glucose (mg/dL) 167 H 162 H 173 H (75-99) mg/dL Calcium (8.4-10.2) mg/dL Total Bilirubin (0.2-1.3) mg/dL AST (17-59) U/L ALT (4-49) U/L Triglycerides (<150) mg/dL Ur Specific [place] (1.001-1.035) Urine Protein (Negative) Urine Blood (Negative) Urine RBC (0-5) /hpf Urine WBC (0-5) /hpf Urine Bacteria (None) /hpf Urine Opiates Screen (NotDetected) U Benzodiazepines Scrn (NotDetected) U Marijuana (THC) Screen (NotDetected) Crossmatch 11/21/19 11/21/19 11/21/19 Range/Units 12:06 12:10 12:56 WBC 14.1 H (3.8-10.6) k/uL RBC 2.78 L (4.30-5.90) m/uL Hgb 9.5 L (13.0-17.5) gm/dL Hct 29.1 L (39.0-53.0) % MCV 104.7 H (80.0-100.0) fL Plt Count 124 L (150-450) k/uL Neutrophils # (1.3-7.7) k/uL Lymphocytes # (1.0-4.8) k/uL ABG pH (7.35-7.45) ABG pCO2 (35-45) mmHg ABG pO2 (83-108) mmHg ABG Total CO2 (19-24) mmol/L ABG O2 Saturation (94-97) % Potassium (3.5-5.1) mmol/L Chloride (98-107) mmol/L Carbon Dioxide (22-30) mmol/L BUN (9-20) mg/dL Creatinine (0.66-1.25) mg/dL Glucose (74-99) mg/dL POC Glucose (mg/dL) 179 H 183 H (75-99) mg/dL Calcium (8.4-10.2) mg/dL Total Bilirubin (0.2-1.3) mg/dL AST (17-59) U/L ALT (4-49) U/L Triglycerides (<150) mg/dL Ur Specific [place] (1.001-1.035) Urine Protein (Negative) Urine Blood (Negative) Urine RBC (0-5) /hpf Urine WBC (0-5) /hpf Urine Bacteria (None) /hpf Urine Opiates Screen (NotDetected) U Benzodiazepines Scrn (NotDetected) U Marijuana (THC) Screen (NotDetected) Crossmatch Microbiology - Last 24 Hours (Table) 11/20/19 23:29 Sputum Culture - Preliminary Sputum 11/19/19 17:38 Blood Culture - Preliminary Blood No Growth after 24 hours 11/19/19 17:45 Blood Culture - Preliminary Blood No Growth after 24 hours 11/19/19 17:40 Urine Culture - Final Urine,Voided
[2019-11-21 14:43] LABS: Glucose,Whole Blood 167 mg/dL (75-99)
[2019-11-21 14:49] LABS: Cholesterol 135 mg/dL (<200); HDL Cholesterol 98 mg/dL (40-60)
[2019-11-21 14:58] LABS: Triglycerides 786 mg/dL (<150)
--- NOTE | 2019-11-21 15:58 | PN ---
PROGRESS NOTE DATE OF SERVICE: 11/21/2019 This 29-year-old gentleman who was admitted after laparoscopic robotic incarcerated hernia surgical repair had possible respiratory failure. Patient is being closely monitored. Patient has possibly aspiration pneumonia. Patient continues to be hypoxic. The patient is on mechanical ventilation. Vent settings are noted at assist-control 450, 100% FiO2. The patient is saturating in the high 80s. The chest CTA did not show any acute pulmonary embolism. Dr. Alas is following the patient closely at this time. The patient is also running some fever. Patient is on broad spectrum IV antibiotics. Past medical history reviewed. Review of systems could not be taken. The patient is mechanically intubated. The patient also had hyperlipidemia, possibly secondary to clevidipine or diprivan infusion. Current medications are reviewed and include DuoNeb, Artificial Tears, Pulmicort, Peridex, clevidipine, Ventolin, Perforomist, heparin, Apresoline, Solu-Medrol as well as nitroglycerin, Zosyn, vancomycin. PHYSICAL EXAMINATION: Patient is mechanically ventilated and sedated. Pulse 133, blood pressure 139/55, respiration 30, temperature 98.9, pulse ox 83% on mechanical ventilation. Vent settings are noted. HEENT: Conjunctivae normal. NECK: Obese. CARDIOVASCULAR SYSTEM: S1, S2 muffled. RESPIRATORY SYSTEM: Breath sounds diminished at the bases. A few scattered rhonchi. ABDOMEN: Soft, obese, non-tender. No mass palpable. LEGS: Status post surgery. No edema. No swelling. NERVOUS SYSTEM: Patient is sedated. LABS: Labs at this time show WBC 14.1, hemoglobin 9.5. ABGs noted: pH of 7.25, PO2 was 57 and pCO2 is 54. Sodium 130, potassium 5.7, creatinine is 1.36. Bilirubin was 2 and AST was 156. ASSESSMENT: 1. Status post laparoscopic robotic-assisted repair of incarcerated incisional hernia and partial omentectomy. 2. Possible acute respiratory failure with hypoxic, hypercarbic, possibly bronchial asthma, acute exacerbation or aspiration pneumonia. 3. Possible acute respiratory distress syndrome. 4. Mild hyperkalemia. 5. Acute renal failure, acute tubular necrosis. 6. On mechanical ventilation. 7. Acute delirium tremens possibly. 8. Possible sepsis, present on admission. 9. Sinus tachycardia. 10.Increased white count. 11.Hyperlipidemia secondary to Diprivan or Cleviprex infusion. 12.Increased mean corpuscular volume. 13.Possible alcoholic hepatitis. 14.Hypomagnesemia. 15.Diabetes mellitus, type 2. 16.Obesity with body mass index 38.8. 17.History of asthma. 18.History of chronic liver disease, possibly secondary to hepatitis C related to previous IV drug abuse. 19.History of generalized edema. 20.History of hernia repair. 21.History of nicotine dependence, continued ongoing. 22.History of heroin. 23.History of tetrahydrocannabinol. 24.FULL CODE. RECOMMENDATIONS AND DISCUSSION: I recommend to continue current medications, continue with the monitoring, symptomatic treatment. Continue the bronchodilators. Continue with mechanical ventilation. Continue with broad-spectrum IV antibiotics. Recommend blood cultures, infectious disease evaluation. Otherwise, closely follow with Dr. Alas. We will continue to monitor. Prognosis guarded. X-rays reviewed. Discussed with staff. Further recommendations to follow. MMBUTCHL / IJN: [id number] /
[2019-11-21] MEDS: MIDAZOLAM HCL 200 MG in SODIUM CHLORIDE 0.9% 60 ML IV SCH (17:08)
[2019-11-21 17:21] LABS: Glucose,Whole Blood 164 mg/dL (75-99)
[2019-11-21 17:47] LABS: Glucose,Whole Blood 158 mg/dL (75-99)
[2019-11-21] MEDS: VANCOMYCIN 2,000 MG in SODIUM CHLORIDE 0.9% 500 ML 500 ML IVPB SCH (19:16)
[2019-11-21 20:30] LABS: Glucose,Whole Blood 129 mg/dL (75-99)
[2019-11-21 21:01] LABS: Glucose,Whole Blood 141 mg/dL (75-99)
[2019-11-21 22:36] LABS: Glucose,Whole Blood 120 mg/dL (75-99)
[2019-11-21 23:03] LABS: Glucose,Whole Blood 122 mg/dL (75-99)
--- NOTE | 2019-11-21 23:13 | P.CONS ---
History of Present Illness - Reason for Consult Consult date: 11/21/19 Sepsis Requesting physician: Leyla Spivey - Chief Complaint Fever x 2 days - History of Present Illness Patient is a 29-year-old male with a past medical history significant for hepatitis C chronic alcoholism in this patient electively admitted to the hospital on 11/18/2020 day. For repair Of incarcerated incisional hernia which was done in addition to partial omentectomy patient apparently had did have postop respiratory failure requiring reintubation and subsequent transfer to ICU, patient did spike a fever of 102.7F yesterday morning as well as today and the patient has been afebrile for more than 24 hours the patient is also tachycardic and requiring high FiO2 currently at 100%, patient also have elevated white count of 16.4, blood and sputum cultures are currently pending, the patient did have a CTA of chest was negative for PE however did show bilateral right greater than left atelectasis and infiltrate small pleural effusion, patient has been treated with Zosyn since surgery with vancomycin added today and infectious disease was consulted for further management of antibiotic therapy and concern for sepsis most of the information has been obtained from review the chart as the patient is currently intubated on the vent and is unable to put any history Review of Systems Positive point has been mentioned in the HPI rest of the systems are negative Past Medical History Past Medical History: Asthma, Liver Disease Additional Past Medical History / Comment(s): Hep c (previous IV drug use.). HERNIA. GENERALIZED EDEMA-MOSTLY BLE History of Any Multi-Drug Resistant Organisms: None Reported Past Surgical History: Hernia Repair Past Anesthesia/Blood Transfusion Reactions: No Reported Reaction Past Psychological History: No Psychological Hx Reported Smoking Status: Current every day smoker Past Alcohol Use History: Daily Additional Past Alcohol Use History / Comment(s): Mother estimates pt drinks 4-6 beers daily. 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 USES MARIJUANA DAILY-INSTRUCTED TO REFRAIN FROM USE FOR AT LEAST 24 HOURS PRIOR TO PROCEDURE - Past Family History Mother Additional Family Medical History / Comment(s): tachycardia Father Family Medical History: Asthma, Coronary Artery Disease (CAD), Diabetes Mellitus Medications and Allergies Home Medications Medication Instructions Recorded Confirmed Type Albuterol Sulfate [Proair Hfa] 2 puff INHALATION RT-Q6H PRN 03/07/19 11/19/19 History Ipratropium-Albuterol Nebulize 3 ml INHALATION RT-Q6H PRN 03/07/19 11/19/19 History [Duoneb 0.5 mg-3 mg/3 ml Soln] Acetaminophen Tab [Tylenol] 650 mg PO Q6H #30 tab 11/19/19 Rx Docusate [Colace] 100 mg PO BID #20 capsule 11/19/19 Rx Ibuprofen [Motrin] 600 mg PO Q6HR PRN #40 tab 11/19/19 Rx oxyCODONE HCL [OxyIR] 5 mg PO Q4H PRN 3 Days #18 tab 11/19/19 Rx Allergies Allergy/AdvReac Type Severity Reaction Status Date / Time No Known Allergies Allergy Verified 11/19/19 07:59 Physical Exam Vitals: Vital Signs Temp Pulse Resp BP Pulse Ox 11/21/19 18:00 138 H 30 H 139/55 78 L 11/21/19 17:45 137 H 30 H 139/55 78 L 11/21/19 17:30 137 H 30 H 139/55 78 L 11/21/19 17:15 135 H 30 H 139/55 77 L 11/21/19 17:00 135 H 30 H 139/55 78 L 11/21/19 16:45 135 H 30 H 139/55 78 L 11/21/19 16:30 135 H 30 H 139/55 80 L 11/21/19 16:15 135 H 30 H 139/55 80 L 11/21/19 16:00 135 H 30 H 139/55 82 L 11/21/19 15:45 134 H 30 H 139/55 83 L 11/21/19 15:30 134 H 30 H 139/55 85 L 11/21/19 15:26 133 H 11/21/19 15:15 134 H 30 H 139/55 83 L 11/21/19 15:00 133 H 30 H 85 L 11/21/19 14:45 133 H 30 H 139/55 84 L 11/21/19 14:30 133 H 30 H 139/55 83 L 11/21/19 14:15 133 H 30 H 139/55 83 L 11/21/19 14:00 98.9 F 133 H 30 H 139/55 84 L 11/21/19 13:45 134 H 30 H 139/55 83 L 11/21/19 13:30 135 H 30 H 139/55 83 L 11/21/19 13:15 135 H 30 H 139/55 84 L 11/21/19 13:00 137 H 30 H 139/55 83 L 11/21/19 12:45 137 H 30 H 139/55 84 L 11/21/19 12:30 137 H 30 H 139/55 83 L 11/21/19 12:15 138 H 30 H 139/55 82 L 11/21/19 12:00 100.2 F H 138 H 30 H 139/55 81 L 11/21/19 11:45 138 H 30 H 139/55 81 L 11/21/19 11:44 140 H 11/21/19 11:30 141 H 30 H 139/55 83 L 11/21/19 11:18 100.2 F H 141 H 30 H 142/68 76 L 11/21/19 11:15 141 H 30 H 139/55 74 L 11/21/19 11:13 141 H 11/21/19 11:00 142 H 30 H 139/55 80 L 11/21/19 10:45 142 H 30 H 139/55 80 L 11/21/19 10:30 142 H 30 H 139/55 83 L 11/21/19 10:15 144 H 30 H 139/55 82 L 11/21/19 10:10 101 F H 144 H 30 H 159/78 81 L 11/21/19 10:00 101.4 F H 142 H 30 H 139/55 79 L 11/21/19 09:45 142 H 30 H 139/55 78 L 11/21/19 09:40 101.4 F H 144 H 30 H 144/64 79 L 11/21/19 09:30 102.8 F H 142 H 30 H 139/55 80 L 11/21/19 09:15 142 H 30 H 139/55 80 L 11/21/19 09:00 142 H 30 H 84 L 11/21/19 08:45 138 H 30 H 139/55 84 L 11/21/19 08:30 141 H 30 H 139/55 83 L 11/21/19 08:15 140 H 30 H 139/55 82 L 11/21/19 08:00 102.8 F H 138 H 12 139/55 81 L 11/21/19 07:52 141 H 11/21/19 07:45 142 H 30 H 149/61 81 L 11/21/19 07:37 141 H 11/21/19 07:30 141 H 30 H 81 L 11/21/19 07:00 140 H 30 H 78 L 11/21/19 06:30 140 H 30 H 85 L 11/21/19 06:00 138 H 30 H 84 L 11/21/19 05:30 138 H 30 H 89 L 11/21/19 05:00 138 H 30 H 90 L 11/21/19 04:30 138 H 30 H 89 L 11/21/19 04:01 140 H 11/21/19 04:00 102.4 F H 140 H 30 H 89 L 11/21/19 03:48 140 H 11/21/19 03:30 138 H 30 H 90 L 11/21/19 03:00 137 H 30 H 89 L 11/21/19 02:30 137 H 30 H 88 L 11/21/19 02:00 137 H 30 H 90 L 11/21/19 01:30 137 H 30 H 90 L 11/21/19 01:00 135 H 30 H 90 L 11/21/19 00:30 135 H 30 H 91 L 11/21/19 00:00 134 H 30 H 91 L 11/20/19 23:40 137 H 11/20/19 23:30 137 H 30 H 90 L 11/20/19 23:27 137 H 11/20/19 23:00 135 H 30 H 90 L 11/20/19 22:30 135 H 30 H 90 L 11/20/19 22:13 135 H 30 H 90 L 11/20/19 22:00 135 H 30 H 90 L 11/20/19 21:30 137 H 30 H 90 L 11/20/19 21:00 135 H 30 H 90 L 11/20/19 20:30 135 H 30 H 90 L 11/20/19 20:00 100.5 F H 137 H 30 H 94 L 11/20/19 19:50 134 H 11/20/19 19:31 135 H 11/20/19 19:30 137 H 30 H 92 L 11/20/19 19:13 137 H 11/20/19 19:00 134 H 30 H 91 L 11/20/19 18:30 133 H 30 H 88 L Intake and Output 11/21/19 11/21/19 11/21/19 06:59 14:59 22:59 Intake Total 2726.079 2444.343 472.63 Output Total 350 605 275 Balance 7844.811 3238.343 197.63 Intake: IV 948 1591.10 469.48 0.9 NACL bolus 500 FENTANYL 38.10 30.48 Lactated ringers 120 Piperacillin-Tazobactam 3 100 100 100 .375 gm In Sodium Chloride 0.9% 100 ml @ 25 mls/hr IVPB Q8HR [facility] Rx# :[id number] Sodium Chloride 0.45% 1, 140 280 000 ml @ 70 mls/hr IV . Q37B12V [facility] with Sodium Bicarb (1 Meq/ml) 150 ml Rx#:[id number] Sodium Chloride 0.9% 1, 800 500 000 ml @ 150 mls/hr IV . Q6H40M [facility] Rx#:[id number] VERSED 45 35 acetaminophen 100 pressure bag 48 48 24 Intake, IV Titration 664.719 375.243 3.15 Amount Clevidipine Butyrate 25 236.7 50 mg In Empty Bag 1 bag @ 1 MG/HR 2 mls/hr IV .Q24H [facility] Rx#:[id number] Insulin Regular 100 unit 64.757 80.951 In Sodium Chloride 0.9% 100 ml @ Per Protocol IV .Q0M [facility] Rx#:[id number] Midazolam HCl 50 mg In 17.583 Sodium Chloride 0.9% 40 ml @ 10 MG/HR 10 mls/hr IV .Q5H [facility] Rx#:[id number] Nitroglycerin-D5w Pmx 50 0.45 3.15 mg In Dextrose/Water 1 250ml.bag @ 10 MCG/MIN 3 mls/hr IV .Q24H [facility] Rx#: [id number] fentaNYL (PF) 1,000 mcg 85.979 In Sodium Chloride 0.9% 80 ml @ Per Protocol IV . Q0M [facility] Rx#:[id number] propofoL 1,000 mg In 363.262 140.28 Empty Bag 1 bag @ Titrate IV .Q0M [facility] Rx#: [id number] Blood Product 310 Rc Pheresis As-3 Unit 310 [id number] Output: Urine 350 605 275 Other: Voiding Method Indwelling Catheter Indwelling Catheter Indwelling Catheter Weight 124.9 kg ABP, PAP, CO, CI - Last 8 Hours Arterial Blood Pressure 168/59 Arterial Blood Pressure 164/59 Arterial Blood Pressure 167/60 Arterial Blood Pressure 164/60 Arterial Blood Pressure 160/58 Arterial Blood Pressure 163/61 Arterial Blood Pressure 164/62 Arterial Blood Pressure 163/64 Arterial Blood Pressure 165/68 Arterial Blood Pressure 161/71 Arterial Blood Pressure 157/68 Arterial Blood Pressure 157/69 Arterial Blood Pressure 156/68 Arterial Blood Pressure 157/71 Arterial Blood Pressure 158/73 Arterial Blood Pressure 148/66 Arterial Blood Pressure 142/65 Arterial Blood Pressure 141/64 Arterial Blood Pressure 142/65 Arterial Blood Pressure 143/65 Arterial Blood Pressure 146/69 Arterial Blood Pressure 145/68 Arterial Blood Pressure 144/69 Arterial Blood Pressure 145/72 Arterial Blood Pressure 141/70 Arterial Blood Pressure 135/64 Arterial Blood Pressure 140/69 Arterial Blood Pressure 147/71 Arterial Blood Pressure 153/76 Arterial Blood Pressure 156/81 Arterial Blood Pressure 157/77 GENERAL DESCRIPTION: Middle-aged male intubated on the vent. No tachypnea or accessory muscle of respiration use. HEENT: Shows Pallor , no scleral icterus. Oral mucous membrane is dry. No pharyngeal erythema or thrush NECK: Trachea central, no thyromegaly. LUNGS: Unlabored breathing. Decreased breath sound at the base. No wheeze or crackle. HEART: S1, S2, regular rate and rhythm. No loud murmur ABDOMEN: Soft, no tenderness , guarding or rigidity, no organomegaly EXTREMITIES: No edema of feet. SKIN: No rash, no masses palpable. NEUROLOGICAL: The patient is sedated on the vent Results CBC & Chem 7: 11/21/19 12:10 11/21/19 16:00 Labs: Abnormal Lab Results - Last 24 Hours (Table) 11/20/19 11/20/19 11/20/19 Range/Units 17:55 19:11 20:04 WBC (3.8-10.6) k/uL RBC (4.30-5.90) m/uL Hgb (13.0-17.5) gm/dL Hct (39.0-53.0) % MCV (80.0-100.0) fL Plt Count (150-450) k/uL Neutrophils # (1.3-7.7) k/uL Lymphocytes # (1.0-4.8) k/uL ABG pH (7.35-7.45) ABG pCO2 (35-45) mmHg ABG pO2 (83-108) mmHg ABG Total CO2 (19-24) mmol/L ABG O2 Saturation (94-97) % Potassium (3.5-5.1) mmol/L Chloride (98-107) mmol/L Carbon Dioxide (22-30) mmol/L BUN (9-20) mg/dL Creatinine (0.66-1.25) mg/dL Glucose (74-99) mg/dL POC Glucose (mg/dL) 184 H 161 H (75-99) mg/dL Calcium (8.4-10.2) mg/dL Total Bilirubin (0.2-1.3) mg/dL AST (17-59) U/L ALT (4-49) U/L Triglycerides (<150) mg/dL HDL Cholesterol (40-60) mg/dL Ur Specific [place] (1.001-1.035) Urine Protein (Negative) Urine Blood (Negative) Urine RBC (0-5) /hpf Urine WBC (0-5) /hpf Urine Bacteria (None) /hpf Urine Opiates Screen Detected H (NotDetected) U Benzodiazepines Scrn Detected H (NotDetected) U Marijuana (THC) Screen Detected H (NotDetected) Crossmatch 11/20/19 11/20/19 11/20/19 Range/Units 20:56 22:01 23:07 WBC (3.8-10.6) k/uL RBC (4.30-5.90) m/uL Hgb (13.0-17.5) gm/dL Hct (39.0-53.0) % MCV (80.0-100.0) fL Plt Count (150-450) k/uL Neutrophils # (1.3-7.7) k/uL Lymphocytes # (1.0-4.8) k/uL ABG pH (7.35-7.45) ABG pCO2 (35-45) mmHg ABG pO2 (83-108) mmHg ABG Total CO2 (19-24) mmol/L ABG O2 Saturation (94-97) % Potassium (3.5-5.1) mmol/L Chloride (98-107) mmol/L Carbon Dioxide (22-30) mmol/L BUN (9-20) mg/dL Creatinine (0.66-1.25) mg/dL Glucose (74-99) mg/dL POC Glucose (mg/dL) 154 H 150 H 159 H (75-99) mg/dL Calcium (8.4-10.2) mg/dL Total Bilirubin (0.2-1.3) mg/dL AST (17-59) U/L ALT (4-49) U/L Triglycerides (<150) mg/dL HDL Cholesterol (40-60) mg/dL Ur Specific [place] (1.001-1.035) Urine Protein (Negative) Urine Blood (Negative) Urine RBC (0-5) /hpf Urine WBC (0-5) /hpf Urine Bacteria (None) /hpf Urine Opiates Screen (NotDetected) U Benzodiazepines Scrn (NotDetected) U Marijuana (THC) Screen (NotDetected) Crossmatch 11/21/19 11/21/19 11/21/19 Range/Units 00:10 01:59 04:06 WBC (3.8-10.6) k/uL RBC (4.30-5.90) m/uL Hgb (13.0-17.5) gm/dL Hct (39.0-53.0) % MCV (80.0-100.0) fL Plt Count (150-450) k/uL Neutrophils # (1.3-7.7) k/uL Lymphocytes # (1.0-4.8) k/uL ABG pH (7.35-7.45) ABG pCO2 (35-45) mmHg ABG pO2 (83-108) mmHg ABG Total CO2 (19-24) mmol/L ABG O2 Saturation (94-97) % Potassium (3.5-5.1) mmol/L Chloride (98-107) mmol/L Carbon Dioxide (22-30) mmol/L BUN (9-20) mg/dL Creatinine (0.66-1.25) mg/dL Glucose (74-99) mg/dL POC Glucose (mg/dL) 165 H 177 H 192 H (75-99) mg/dL Calcium (8.4-10.2) mg/dL Total Bilirubin (0.2-1.3) mg/dL AST (17-59) U/L ALT (4-49) U/L Triglycerides (<150) mg/dL HDL Cholesterol (40-60) mg/dL Ur Specific [place] (1.001-1.035) Urine Protein (Negative) Urine Blood (Negative) Urine RBC (0-5) /hpf Urine WBC (0-5) /hpf Urine Bacteria (None) /hpf Urine Opiates Screen (NotDetected) U Benzodiazepines Scrn (NotDetected) U Marijuana (THC) Screen (NotDetected) Crossmatch 11/21/19 11/21/19 11/21/19 Range/Units 04:50 04:51 05:44 WBC 16.4 H (3.8-10.6) k/uL RBC 2.47 L (4.30-5.90) m/uL Hgb 8.5 L D (13.0-17.5) gm/dL Hct 26.2 L (39.0-53.0) % MCV 106.3 H (80.0-100.0) fL Plt Count (150-450) k/uL Neutrophils # 14.8 H (1.3-7.7) k/uL Lymphocytes # 0.4 L (1.0-4.8) k/uL ABG pH (7.35-7.45) ABG pCO2 (35-45) mmHg ABG pO2 (83-108) mmHg ABG Total CO2 (19-24) mmol/L ABG O2 Saturation (94-97) % Potassium (3.5-5.1) mmol/L Chloride (98-107) mmol/L Carbon Dioxide (22-30) mmol/L BUN (9-20) mg/dL Creatinine (0.66-1.25) mg/dL Glucose (74-99) mg/dL POC Glucose (mg/dL) 135 H 181 H (75-99) mg/dL Calcium (8.4-10.2) mg/dL Total Bilirubin (0.2-1.3) mg/dL AST (17-59) U/L ALT (4-49) U/L Triglycerides (<150) mg/dL HDL Cholesterol (40-60) mg/dL Ur Specific [place] (1.001-1.035) Urine Protein (Negative) Urine Blood (Negative) Urine RBC (0-5) /hpf Urine WBC (0-5) /hpf Urine Bacteria (None) /hpf Urine Opiates Screen (NotDetected) U Benzodiazepines Scrn (NotDetected) U Marijuana (THC) Screen (NotDetected) Crossmatch 11/21/19 11/21/19 11/21/19 Range/Units 06:06 06:31 07:02 WBC (3.8-10.6) k/uL RBC (4.30-5.90) m/uL Hgb (13.0-17.5) gm/dL Hct (39.0-53.0) % MCV (80.0-100.0) fL Plt Count (150-450) k/uL Neutrophils # (1.3-7.7) k/uL Lymphocytes # (1.0-4.8) k/uL ABG pH 7.31 L (7.35-7.45) ABG pCO2 49 H (35-45) mmHg ABG pO2 56 L* (83-108) mmHg ABG Total CO2 26 H (19-24) mmol/L ABG O2 Saturation 87.3 L (94-97) % Potassium (3.5-5.1) mmol/L Chloride (98-107) mmol/L Carbon Dioxide (22-30) mmol/L BUN (9-20) mg/dL Creatinine (0.66-1.25) mg/dL Glucose (74-99) mg/dL POC Glucose (mg/dL) 184 H (75-99) mg/dL Calcium (8.4-10.2) mg/dL Total Bilirubin (0.2-1.3) mg/dL AST (17-59) U/L ALT (4-49) U/L Triglycerides (<150) mg/dL HDL Cholesterol (40-60) mg/dL Ur Specific [place] (1.001-1.035) Urine Protein (Negative) Urine Blood (Negative) Urine RBC (0-5) /hpf Urine WBC (0-5) /hpf Urine Bacteria (None) /hpf Urine Opiates Screen (NotDetected) U Benzodiazepines Scrn (NotDetected) U Marijuana (THC) Screen (NotDetected) Crossmatch See Detail 10/15/20 10/15/20 10/15/20 Range/Units 07:02 07:02 07:02 WBC 15.4 H (3.8-10.6) k/uL RBC 2.47 L (4.30-5.90) m/uL Hgb 8.4 L (13.0-17.5) gm/dL Hct 26.1 L (39.0-53.0) % MCV 105.8 H (80.0-100.0) fL Plt Count (150-450) k/uL Neutrophils # 13.9 H (1.3-7.7) k/uL Lymphocytes # 0.3 L (1.0-4.8) k/uL ABG pH (7.35-7.45) ABG pCO2 (35-45) mmHg ABG pO2 (83-108) mmHg ABG Total CO2 (19-24) mmol/L ABG O2 Saturation (94-97) % Potassium 5.7 H (3.5-5.1) mmol/L Chloride 111 H (98-107) mmol/L Carbon Dioxide 18 L (22-30) mmol/L BUN 32 H (9-20) mg/dL Creatinine 1.36 H (0.66-1.25) mg/dL Glucose 150 H (74-99) mg/dL POC Glucose (mg/dL) (75-99) mg/dL Calcium 8.3 L (8.4-10.2) mg/dL Total Bilirubin 2.0 H (0.2-1.3) mg/dL AST 156 H (17-59) U/L ALT 99 H (4-49) U/L Triglycerides 2338 H (<150) mg/dL HDL Cholesterol (40-60) mg/dL Ur Specific [place] (1.001-1.035) Urine Protein (Negative) Urine Blood (Negative) Urine RBC (0-5) /hpf Urine WBC (0-5) /hpf Urine Bacteria (None) /hpf Urine Opiates Screen (NotDetected) U Benzodiazepines Scrn (NotDetected) U Marijuana (THC) Screen (NotDetected) Crossmatch 11/21/19 11/21/19 11/21/19 Range/Units 07:02 07:07 08:25 WBC (3.8-10.6) k/uL RBC (4.30-5.90) m/uL Hgb (13.0-17.5) gm/dL Hct (39.0-53.0) % MCV (80.0-100.0) fL Plt Count (150-450) k/uL Neutrophils # (1.3-7.7) k/uL Lymphocytes # (1.0-4.8) k/uL ABG pH 7.25 L (7.35-7.45) ABG pCO2 54 H (35-45) mmHg ABG pO2 57 L* (83-108) mmHg ABG Total CO2 25 H (19-24) mmol/L ABG O2 Saturation 86.3 L (94-97) % Potassium (3.5-5.1) mmol/L Chloride (98-107) mmol/L Carbon Dioxide (22-30) mmol/L BUN (9-20) mg/dL Creatinine (0.66-1.25) mg/dL Glucose (74-99) mg/dL POC Glucose (mg/dL) 185 H (75-99) mg/dL Calcium (8.4-10.2) mg/dL Total Bilirubin (0.2-1.3) mg/dL AST (17-59) U/L ALT (4-49) U/L Triglycerides 786 H (<150) mg/dL HDL Cholesterol 98 H (40-60) mg/dL Ur Specific [place] (1.001-1.035) Urine Protein (Negative) Urine Blood (Negative) Urine RBC (0-5) /hpf Urine WBC (0-5) /hpf Urine Bacteria (None) /hpf Urine Opiates Screen (NotDetected) U Benzodiazepines Scrn (NotDetected) U Marijuana (THC) Screen (NotDetected) Crossmatch 11/21/19 11/21/19 11/21/19 Range/Units 08:42 08:48 10:13 WBC (3.8-10.6) k/uL RBC (4.30-5.90) m/uL Hgb (13.0-17.5) gm/dL Hct (39.0-53.0) % MCV (80.0-100.0) fL Plt Count (150-450) k/uL Neutrophils # (1.3-7.7) k/uL Lymphocytes # (1.0-4.8) k/uL ABG pH (7.35-7.45) ABG pCO2 (35-45) mmHg ABG pO2 (83-108) mmHg ABG Total CO2 (19-24) mmol/L ABG O2 Saturation (94-97) % Potassium (3.5-5.1) mmol/L Chloride (98-107) mmol/L Carbon Dioxide (22-30) mmol/L BUN (9-20) mg/dL Creatinine (0.66-1.25) mg/dL Glucose (74-99) mg/dL POC Glucose (mg/dL) 167 H 162 H (75-99) mg/dL Calcium (8.4-10.2) mg/dL Total Bilirubin (0.2-1.3) mg/dL AST (17-59) U/L ALT (4-49) U/L Triglycerides (<150) mg/dL HDL Cholesterol (40-60) mg/dL Ur Specific [place] 1.040 H (1.001-1.035) Urine Protein Trace H (Negative) Urine Blood Trace H (Negative) Urine RBC 33 H (0-5) /hpf Urine WBC 6 H (0-5) /hpf Urine Bacteria Rare H (None) /hpf Urine Opiates Screen (NotDetected) U Benzodiazepines Scrn (NotDetected) U Marijuana (THC) Screen (NotDetected) Crossmatch 11/21/19 11/21/19 11/21/19 Range/Units 11:38 12:06 12:10 WBC 14.1 H (3.8-10.6) k/uL RBC 2.78 L (4.30-5.90) m/uL Hgb 9.5 L (13.0-17.5) gm/dL Hct 29.1 L (39.0-53.0) % MCV 104.7 H (80.0-100.0) fL Plt Count 124 L (150-450) k/uL Neutrophils # (1.3-7.7) k/uL Lymphocytes # (1.0-4.8) k/uL ABG pH (7.35-7.45) ABG pCO2 (35-45) mmHg ABG pO2 (83-108) mmHg ABG Total CO2 (19-24) mmol/L ABG O2 Saturation (94-97) % Potassium (3.5-5.1) mmol/L Chloride (98-107) mmol/L Carbon Dioxide (22-30) mmol/L BUN (9-20) mg/dL Creatinine (0.66-1.25) mg/dL Glucose (74-99) mg/dL POC Glucose (mg/dL) 173 H 179 H (75-99) mg/dL Calcium (8.4-10.2) mg/dL Total Bilirubin (0.2-1.3) mg/dL AST (17-59) U/L ALT (4-49) U/L Triglycerides (<150) mg/dL HDL Cholesterol (40-60) mg/dL Ur Specific [place] (1.001-1.035) Urine Protein (Negative) Urine Blood (Negative) Urine RBC (0-5) /hpf Urine WBC (0-5) /hpf Urine Bacteria (None) /hpf Urine Opiates Screen (NotDetected) U Benzodiazepines Scrn (NotDetected) U Marijuana (THC) Screen (NotDetected) Crossmatch 11/21/19 11/21/19 11/21/19 Range/Units 12:56 14:41 17:20 WBC (3.8-10.6) k/uL RBC (4.30-5.90) m/uL Hgb (13.0-17.5) gm/dL Hct (39.0-53.0) % MCV (80.0-100.0) fL Plt Count (150-450) k/uL Neutrophils # (1.3-7.7) k/uL Lymphocytes # (1.0-4.8) k/uL ABG pH (7.35-7.45) ABG pCO2 (35-45) mmHg ABG pO2 (83-108) mmHg ABG Total CO2 (19-24) mmol/L ABG O2 Saturation (94-97) % Potassium (3.5-5.1) mmol/L Chloride (98-107) mmol/L Carbon Dioxide (22-30) mmol/L BUN (9-20) mg/dL Creatinine (0.66-1.25) mg/dL Glucose (74-99) mg/dL POC Glucose (mg/dL) 183 H 167 H 164 H (75-99) mg/dL Calcium (8.4-10.2) mg/dL Total Bilirubin (0.2-1.3) mg/dL AST (17-59) U/L ALT (4-49) U/L Triglycerides (<150) mg/dL HDL Cholesterol (40-60) mg/dL Ur Specific [place] (1.001-1.035) Urine Protein (Negative) Urine Blood (Negative) Urine RBC (0-5) /hpf Urine WBC (0-5) /hpf Urine Bacteria (None) /hpf Urine Opiates Screen (NotDetected) U Benzodiazepines Scrn (NotDetected) U Marijuana (THC) Screen (NotDetected) Crossmatch 11/21/19 Range/Units 17:46 WBC (3.8-10.6) k/uL RBC (4.30-5.90) m/uL Hgb (13.0-17.5) gm/dL Hct (39.0-53.0) % MCV (80.0-100.0) fL Plt Count (150-450) k/uL Neutrophils # (1.3-7.7) k/uL Lymphocytes # (1.0-4.8) k/uL ABG pH (7.35-7.45) ABG pCO2 (35-45) mmHg ABG pO2 (83-108) mmHg ABG Total CO2 (19-24) mmol/L ABG O2 Saturation (94-97) % Potassium (3.5-5.1) mmol/L Chloride (98-107) mmol/L Carbon Dioxide (22-30) mmol/L BUN (9-20) mg/dL Creatinine (0.66-1.25) mg/dL Glucose (74-99) mg/dL POC Glucose (mg/dL) 158 H (75-99) mg/dL Calcium (8.4-10.2) mg/dL Total Bilirubin (0.2-1.3) mg/dL AST (17-59) U/L ALT (4-49) U/L Triglycerides (<150) mg/dL HDL Cholesterol (40-60) mg/dL Ur Specific [place] (1.001-1.035) Urine Protein (Negative) Urine Blood (Negative) Urine RBC (0-5) /hpf Urine WBC (0-5) /hpf Urine Bacteria (None) /hpf Urine Opiates Screen (NotDetected) U Benzodiazepines Scrn (NotDetected) U Marijuana (THC) Screen (NotDetected) Crossmatch Microbiology - Last 24 Hours (Table) 11/20/19 23:29 Gram Stain - Preliminary Sputum Sputum Culture - Preliminary 11/19/19 17:38 Blood Culture - Preliminary Blood No Growth after 24 hours 11/19/19 17:45 Blood Culture - Preliminary Blood No Growth after 24 hours 11/19/19 17:40 Urine Culture - Final Urine,Voided Assessment and Plan Assessment: 1- patient is a 29-year-old male electively admitted to the hospital on 11/19/2023 repair of incarcerated abdominal hernia and did have partial omentectomy no mention of any bowel resection in this patient who did have a postop respiratory failure requiring ventilation support CT angiogram was negative for PE did shows bilateral consolidation right greater than left with concern for possible aspiration pneumonia and will need to cover for the enteric gram-negative pathogen underlying gram-positive pathogen less likely but not entirely excluded, plus minus abdominal source (1) Sepsis Current Visit: Yes Status: Acute Code(s): A41.9 - SEPSIS, UNSPECIFIED ORGANISM SNOMED Code(s): 00202091 (2) Aspiration pneumonia Current Visit: Yes Status: Acute Code(s): J69.0 - PNEUMONITIS DUE TO INHALATION OF FOOD AND VOMIT SNOMED Code(s): 000334774 Plan: 1-Zosyn 3.75 g every 8 hours 2-Vancomycin pharmacy to dose target trough of 15 while watching kidney function and Vanco trough closely, started today we'll continue for a day or 2 while waiting for the culture finalized and monitor his kidney function and Vanco trough closely 3-we will wait for blood and sputum cultures to finalize 4-We will follow on clinical condition and cultures to further adjust medication if needed Thank you for this consultation will follow this patient with you Time with Patient: Greater than 30
[2019-11-22 00:33] LABS: Glucose,Whole Blood 176 mg/dL (75-99)
[2019-11-22 01:14] LABS: Glucose,Whole Blood 181 mg/dL (75-99)
[2019-11-22] MEDS: MIDAZOLAM HCL 50 MG in SODIUM CHLORIDE 0.9% 40 ML IV SCH ×2 (01:30→08:41)
[2019-11-22] MEDS: CHLORHEXIDINE GLUCONATE 15 ML CUP MUCOUS MEM SCH ×2 (02:01→10:27)
[2019-11-22] MEDS: HEPARIN SODIUM,PORCINE 5,000 UNIT/ML 1 ML VIAL SQ SCH ×2 (02:01→10:31)
[2019-11-22] MEDS: PANTOPRAZOLE 40 MG/10 ML VIAL IVP SCH ×2 (02:01→10:31)
[2019-11-22] MEDS: PIPERACILLIN-TAZOBACTAM 3.375 GM in SODIUM CHLORIDE 0.9% 100 ML IVPB SCH ×2 (02:01→10:27)
[2019-11-22] MEDS: methylPREDNISolone SOD SUCCI 125 MG/2 ML VIAL IV SCH ×3 (02:01→12:12)
[2019-11-22] MEDS: IPRATROPIUM-ALBUTEROL 3 ML NEB INHALATION PRN ×3 (02:02→02:43)
[2019-11-22 02:03] VITALS: BP 144/55
[2019-11-22 02:19] LABS: Glucose,Whole Blood 174 mg/dL (75-99)
[2019-11-22 02:54] LABS: Glucose,Whole Blood 149 mg/dL (75-99)
--- NOTE | 2019-11-22 02:58 | XR ---
EXAM: XR Chest, 1 View CLINICAL HISTORY: ITS.REASON XR Reason: SOB TECHNIQUE: Frontal view of the chest. COMPARISON: 11/21/2019 at 05:28 hours FINDINGS: Lungs: There is complete opacification of the right hemithorax with volume loss, new from the previous exam. Subsegmental changes in the right midlung zone and left lung base are increased from the previous exam. Pleural space: Unremarkable. No pneumothorax. No large pleural effusion. Heart: The cardiac silhouette is largely obscured by is felt to be stable. Mediastinum: There is mild rightward deviation of the trachea suggesting volume loss on the right. No obvious alteration. Bones/joints: Unremarkable. Tubes, lines and devices: The endotracheal tube is identified approximately 4.3 cm from the gaurang. The nasogastric tube traverses the mediastinum and remains looped in the left upper quadrant, presumably with the tip in the mid body the stomach. IMPRESSION: 1. There is complete opacification of the right hemithorax with volume loss, new from the previous exam. Differential consideration includes advancing consolidation or atelectasis. Rightward deviation of the trachea makes developing large pleural effusion was likely. 2. Subsegmental changes in the right midlung zone and left lung base are increased from the previous exam. Atelectasis or pneumonia are the primary considerations.
[2019-11-22] MEDS ORDERED: CLEVIDIPINE BUTYRATE 25 MG/50 ML VIAL IV ONE (03:15)
[2019-11-22] MEDS: CLEVIDIPINE BUTYRATE 25 MG in EMPTY BAG 1 BAG IV SCH (03:21)
--- NOTE | 2019-11-22 03:26 | XR ---
EXAM: XR Chest, 1 View CLINICAL HISTORY: Tube placement TECHNIQUE: Frontal view of the chest. COMPARISON: 02:29 hours; 11/21/2019 at 05:28 hours FINDINGS: Lungs: There is improved aeration of the right lung with near complete reexpansion. There is some residual right perihilar and basilar changes, slightly more prominent from the previous examination performed at 05:28 hours. Patchy opacity in the left midlung zone and left lung base is similar to the previous exam. Pleural space: Unremarkable. No pneumothorax. No large pleural effusion. Heart: Unremarkable. No cardiomegaly. Mediastinum: There is diminished tracheal deviation to the right. The mediastinal contours are otherwise stable. Bones/joints: Unremarkable. Tubes, lines and devices: The endotracheal tube measures 4.3 cm from the gaurang. The nasogastric tube traverses the mediastinum and remains looped in the left upper quadrant, stable in appearance. IMPRESSION: There is improved aeration of the right lung with near complete reexpansion. There is some residual right perihilar and basilar changes, slightly more prominent from the previous examination performed at 05:28 hours. Persistent changes in the left perihilar region and left lung base.
[2019-11-22 03:43] LABS: Glucose,Whole Blood 143 mg/dL (75-99)
[2019-11-22 04:24] LABS: Glucose,Whole Blood 120 mg/dL (75-99)
[2019-11-22 04:53] LABS: Glucose,Whole Blood 125 mg/dL (75-99)
[2019-11-22 05:03] LABS: HCT 31.9 % (39.0-53.0); HGB 10.2 gm/dL (13.0-17.5); MCH 33.7 pg (25.0-35.0); MCV 105.3 fL (80.0-100.0); Macrocytosis Moderate; Mean Platelet Volume 8.8; Platelet Count 146 k/uL (150-450); RBC 3.03 m/uL (4.30-5.90); RDW 15.2 % (11.5-15.5)
[2019-11-22 05:13] LABS: ALT 84 U/L (4-49); AST 87 U/L (17-59); African American GFR (CKD) >90 (>60 ml/min/1.73 sqM); Albumin 3.6 g/dL (3.5-5.0); Alkaline Phosphatase 63 U/L (38-126); Anion Gap 3 mmol/L; Blood Urea Nitrogen 34 mg/dL (9-20); Calcium 8.7 mg/dL (8.4-10.2); Carbon Dioxide 31 mmol/L (22-30); Chloride 111 mmol/L (98-107); Glucose 122 mg/dL (74-99); Non-African American GFR(CKD) >90 (>60 ml/min/1.73 sqM); Sodium 145 mmol/L (137-145); Total Bilirubin 1.1 mg/dL (0.2-1.3); Total Protein 6.1 g/dL (6.3-8.2)
[2019-11-22] MEDS: SODIUM CHLORIDE 0.45% 1,000 ML with SODIUM BICARB (1 MEQ/ML) 150 ML IV SCH ×2 (05:53)
--- NOTE | 2019-11-22 05:54 | PCN ---
PROCEDURE NOTE OPERATIVE REPORT: Emergency bronchoscopy and bronchoalveolar lavage of the right lung and suctioning of the mucus plug in the right mainstem bronchus. PREOPERATIVE DIAGNOSIS: Complete opacification of the right lung with ipsilateral deviation of the trachea consistent with mucus plug. POSTOPERATIVE DIAGNOSIS: Mucus plug of the right mainstem bronchus. DESCRIPTION OF PROCEDURE: The patient was placed in a supine position. He was already on multiple medications including Nimbex, propofol, and on fentanyl. An adapter was placed to the endotracheal tube, and while the patient was Ambu bagged, I was able to go in to the distal trachea. A thorough examination was done and there was clearly evidence of a mucus plug in the right mainstem bronchus. Lavaged the right mainstem bronchus, I was able to extract all the secretions, which were completely occluding the right mainstem bronchus and I was able to visualize after that, the right upper lobe, right middle lobe, right lower lobe. Examination was done on the left side. There were some secretions, were not thick, and these were also suctioned. The patient tolerated the procedure well, no evidence of any complications. Chest x-ray postoperatively showed complete re- expansion of the right lung. The patient was placed back on mechanical ventilation on his previous settings. MMODL / IJN: [id number] /
[2019-11-22 06:16] LABS: Glucose,Whole Blood 106 mg/dL (75-99)
[2019-11-22 06:51] LABS: Anisocytosis (M) Present; Band Neutrophils % 6 %; Lymphocytes # (M) 0.32 k/uL (1.0-4.8); Metamyelocytes # (M) 0.32 k/uL (0); Metamyelocytes % 2 %; Monocytes # (M) 0.32 k/uL (0-1.0); Neutrophils % (M) 90 %; Nucleated Red Blood Cells 1 /100 WBC (0-0); Total Cells Counted 200
[2019-11-22 06:52] LABS: Polychromasia Present
[2019-11-22] MEDS: VANCOMYCIN 2,000 MG in SODIUM CHLORIDE 0.9% 500 ML 500 ML IVPB SCH (06:56)
[2019-11-22 07:11] LABS: ABG Base Excess 5.1 mmol/L; ABG HCO3 31 mmol/L (21-25); ABG Oxygen Saturation 85.7 % (94-97); ABG PCO2 54 mmHg (35-45); ABG PH 7.36 (7.35-7.45); ABG TCO2 32 mmol/L (19-24); Allen Test Performed? Yes
[2019-11-22 07:13] LABS: ABG PO2 51 mmHg (83-108)
[2019-11-22 07:14] LABS: Glucose,Whole Blood 141 mg/dL (75-99)
[2019-11-22] MEDS: fentaNYL (PF) 1,000 MCG in SODIUM CHLORIDE 0.9% 80 ML IV SCH (08:08)
[2019-11-22] MEDS: FORMOTEROL FUMARATE 20 MCG/2 ML NEBU INHALATION SCH (08:14)
[2019-11-22] MEDS: BUDESONIDE 1 MG/2 ML NEBU INHALATION SCH (08:14)
[2019-11-22] MEDS: IPRATROPIUM-ALBUTEROL 3 ML NEB INHALATION SCH ×3 (08:14→15:06)
[2019-11-22] MEDS: MIDAZOLAM HCL 200 MG in SODIUM CHLORIDE 0.9% 60 ML IV SCH (08:39)
--- NOTE | 2019-11-22 09:28 | US ---
EXAMINATION TYPE: US abdomen limited DATE OF EXAM: 11/22/2019 COMPARISON: NONE CLINICAL HISTORY: rule out ascites. Trace amounts of ascites visualized in the RUQ. IMPRESSION: No sizable fluid collection seen within the abdomen.
[2019-11-22] MEDS: LACTATED RINGERS 1,000 ML IV SCH (10:32)
[2019-11-22] MEDS ORDERED: FUROSEMIDE 10 MG/ML 4 ML VIAL IV STA (10:33)
[2019-11-22] MEDS: NITROGLYCERIN-D5W PMX 50 MG in DEXTROSE/WATER 1 250ML.BAG IV SCH (10:37)
[2019-11-22 10:59] LABS: Glucose,Whole Blood 164 mg/dL (75-99)
[2019-11-22 11:29] LABS: INR 1.1 (<1.2); Prothrombin Time 11.5 sec (9.0-12.0)
[2019-11-22 11:35] LABS: Partial Thromboplastin Time 20.9 sec (22.0-30.0)
[2019-11-22] MEDS: CISATRACURIUM 200 MG in SODIUM CHLORIDE 0.9% 180 ML IV SCH (11:58)
[2019-11-22] MEDS ORDERED: cloNIDine 0.1 MG/24HR PATCH TRANSDERM SCH (12:00)
[2019-11-22 12:20] VITALS: TEMP 100.2
--- NOTE | 2019-11-22 12:32 | P.PN ---
Subjective Progress Note Date: 11/22/19 Principal diagnosis: Acute hypoxic respiratory failure This is a 29-year-old white male with history of asthma, hepatitis C, chronic liver disease secondary to hepatitis C, patient underwent today a ventral incisional hernia repair done by Dr. tapia, postoperatively patient was extubated but he had to be reintubated mostly because he developed significant bronchospasm and abnormal chest x-ray showing pulmonary vascular congestion and airspace opacities of bilateral upper lobe. I saw the patient in the recovery room, patient was on mechanical ventilation, intubated the size 7.0 endotracheal tube, chest x-ray was reviewed, patient was on 100% FiO2 tidal volume is 500, assist control rate of 16 PEEP was 5. O2 saturation was marginal. Hence I recommended a dose of Lasix, recommended bronchodilators and steroids, and I have recommended changing the endotracheal tube to a size 8.0 endotracheal tube and eventual transfer to the ICU. Supposedly the patient had fairly uneventful laparoscopic repair of ventral incisional hernia. Patient is known to have history of anasarca related to liver disease mostly related to alcohol abuse and history of hepatitis C patient is also known to have history of asthma nicotine dependence, obesity with BMI of 40.7, and history of elevated liver enzymes. Patient was reevaluated today on 11/20/19, patient remains on mechanical ventilation. His ventilator settings are assist control rate of 30 volume is 450 FiO2 is still on the percent PEEP is 12. His peak airway pressure is 35 his plateau pressure is 27. ABG still reflects relative hypoxemia with a pO2 of 74 pCO2 of 47 pH of 7.34. Patient remains on Nimbex, 2 mcg/kg/m, he is also on propofol 75 mcg/kg/m, clevidipine Zak 18 mg/h IV fluid at 0.9 normal saline 100 mL/h, and I am about to start fentanyl 50 g per hour. Patient had follow-up chest x-ray this morning, and it showed mostly some atelectasis and left sided pleural effusion small to moderate. His venous Doppler yesterday was negative for deep vein thrombosis. Echocardiogram today is relatively unremarkable. Cultures are still pending. Pancultures were sent. WBC count today is 14.3. Hemoglobin is 14.5. Basic metabolic profile is normal. Liver enzymes are elevated but improved compared to yesterday urine culture is pending Patient was reevaluated today on 11/21/19. Remains intubated and on mechanical ventilation. Patient is still on assist control rate of 30 tidal volume is 450 FiO2 of 100% PEEP was increased as high as 18, however his O2 saturation continued to drop with increased PEEP, then I switch him down to a PEEP of 12. Patient is on multiple drips including Nimbex, clevidipine, the prevent at 75 mcg/kg/m, fentanyl at 0.6 mcg/kg/h insulin at 15 units per hour. Patient r emains quite ill, chest x-ray continues to show bilateral pneumonia and small left pleural effusion. Labs are abnormal hemoglobin dropped down to 8, and I plan to give the patient 2 units of packed RBCs. I was hoping I could send the patient down for a CT of the abdomen and pelvis, however he is unstable and his O2 saturation is marginal, hence discussed his low hemoglobin with the surgeon, felt that we transfuse for now, and hold on the CT of the abdomen and pelvis. Try to adjust the PEEP up hoping to improve his oxygenation, however his O2 saturation worsened with higher PEEP, then he was placed back on a PEEP of 12. ABG at present showed a pO2 of 56 pCO2 of 49 pH of 7.31. His intra-abdominal pressure was measured, there is no evidence of intra-abdominal compartment syndrome. Patient remains on fluids at 150 ML per hour. And I plan to give him 2 units of packed RBCs here shortly. CT of the chest was reviewed from yesterday, no evidence of pulmonary embolism, but he does have significant consolidation in both lobes right more so than left lower lobe. Reevaluated today on 11/22/19, patient remains in the ICU, intubated and mechanically ventilated. Patient developed postoperative hypoxic respiratory failure secondary to acute asthma exacerbation, and bilateral pneumonia. Has been requiring high FiO2 100%, high PEEP, however best PEEP for him has been 12. Patient developed right lung collapse yesterday, and almost complete whitening gout of the right lung, with ipsilateral deviation of the trachea to the right side. This was clearly consistent with mucous plugging, he came in around 3 AM, and bronchoscope the patient, and clear the secretions and mucous plugs from the right mainstem bronchus. Patient has been back on mechanical ventilation, presently on assist control rate of 38, tidal volume is 450, FiO2 is 100%, and PEEP is 12. ABG this morning showed a pO2 of 51 pCO2 of 54 pH of 7.36. Patient remains on Nimbex at 2 mcg/kg/m, clevidipine to 4 mg per hour. Insulin at 15 units per hour. Fentanyl at 0.6 mcg/kg/h, he is also on nitroglycerin drip, Ve rsed at 10 mg per hour. Lactated Ringer's . Continues to have peak airway pressure of about 41, plateau pressure is between 27-29. Chest x-ray continues to show similar findings with bibasilar consolidation, and possibly a small left pleural effusion. Persistent changes also noted in the left perihilar region and left lung base. Abdominal ultrasound today showed no sizable fluid collection for paracentesis. Electrolytes were noted to be normal. Bicarb is 31, hence we will discontinue the bicarbonate drip. His BUN is 34 creatinine is 0.94. Patient is a be started on enteral feeding today, recovered feeds. In the meantime we are working on transferring the patient to the [facility] for possible ECMO treatment. Objective - Vital Signs Vital signs: Vital Signs Temp 100.1 F H 11/22/19 08:00 Pulse 141 H 11/22/19 11:36 Resp 38 H 11/22/19 11:15 BP 144/55 11/22/19 11:15 Pulse Ox 81 L 11/22/19 11:15 Intake & Output 11/21/19 11/22/19 11/22/19 18:59 06:59 18:59 Intake Total 3072.760 1129.307 887.040 Output Total 880 863 945 Balance 2192.760 266.307 -57.960 Weight 127.5 kg Intake: IV 2060.58 1063.44 543.10 0.9 NACL bolus 500 FENTANYL 68.58 91.44 38.10 Lactated ringers 120 Piperacillin-Tazobactam 3 200 100 .375 gm In Sodium Chloride 0.9% 100 ml @ 25 mls/hr IVPB Q8HR NOBLE Rx# :[id number] Sodium Chloride 0.45% 1, 420 840 350 000 ml @ 70 mls/hr IV . [id number] NOBLE with Sodium Bicarb (1 Meq/ml) 150 ml Rx#:[id number] Sodium Chloride 0.9% 1, 500 000 ml @ 150 mls/hr IV . Q6H40M NOBLE Rx#:[id number] VERSED 80 60 25 acetaminophen 100 pressure bag 72 72 30 Intake, IV Titration 702.180 65.867 343.940 Amount Cisatracurium 200 mg In 200 Sodium Chloride 0.9% 180 ml @ 1 MCG/KG/MIN 7.146 mls/hr IV .Q24H NOBLE Rx#: [id number] Clevidipine Butyrate 25 50 5.867 mg In Empty Bag 1 bag @ 1 MG/HR 2 mls/hr IV .Q24H NOBLE Rx#:[id number] Insulin Regular 100 unit 80.951 58.782 In Sodium Chloride 0.9% 100 ml @ Per Protocol IV .Q0M NOBLE Rx#:[id number] Lactated Ringers 1,000 ml 60 60 @ 60 mls/hr IV .[id number] NOBLE Rx#:[id number] Midazolam HCl 200 mg In 7.758 Sodium Chloride 0.9% 60 ml @ 1 MG/HR 0.5 mls/hr IV .Q24H NOBLE Rx#: [id number] Midazolam HCl 50 mg In 67.583 Sodium Chloride 0.9% 40 ml @ 10 MG/HR 10 mls/hr IV .Q5H NOBLE Rx#:[id number] Nitroglycerin-D5w Pmx 50 3.60 117.4 mg In Dextrose/Water 1 250ml.bag @ 10 MCG/MIN 3 mls/hr IV .Q24H NOBLE Rx#: [id number] fentaNYL (PF) 1,000 mcg 159.766 100 In Sodium Chloride 0.9% 80 ml @ Per Protocol IV . Q0M NOBLE Rx#:[id number] propofoL 1,000 mg In 140.28 Empty Bag 1 bag @ Titrate IV .Q0M NOBLE Rx#: [id number] Blood Product 310 Rc Pheresis As-3 Unit 310 [id number] Output: Urine 880 863 945 Other: Voiding Method Indwelling Catheter Indwelling Catheter Indwelling Catheter ABP, PAP, CO, CI - Last Documented Arterial Blood Pressure 163/57 - Exam Physical Exam: Revealed a 29-year-old white male obese, on mechanical ventilation patient is sedated and paralyzed. Head: Atraumatic, normocephalic. Endotracheal tube is intact. Orogastric tube is intact. HEENT:[Neck is supple.] [No neck masses.] [No thyromegaly.] [No JVD.] Short obese neck. Chest: [Symmetrical chest expansion diffuse rhonchi noted bilaterally. Cardiac: Tachycardic, normal S1 S2, no S3 gallop, no murmur.] Abdomen: Obese, binder is in place. Post surgical abdomen. No rebound no guarding. Extremities: [No clubbing trace of edema, no cyanosis.Mottling of the skin has r esolved urological Exam: Patient is sedated, could not be assessed. Patient is sedated and paralyzed. Psychiatric: Could not be assessed. Skin: no rashes. And mottling has resolved - Labs CBC & Chem 7: 11/22/19 04:47 11/22/19 04:47 Labs: Abnormal Lab Results - Last 24 Hours (Table) 11/21/19 11/21/19 11/21/19 Range/Units 07:02 12:10 12:56 WBC 14.1 H (3.8-10.6) k/uL RBC 2.78 L (4.30-5.90) m/uL Hgb 9.5 L (13.0-17.5) gm/dL Hct 29.1 L (39.0-53.0) % MCV 104.7 H (80.0-100.0) fL Plt Count 124 L (150-450) k/uL Neutrophils # (Manual) (1.3-7.7) k/uL Lymphocytes # (Manual) (1.0-4.8) k/uL Metamyelocytes # (Man) (0) k/uL Nucleated RBCs (0-0) /100 WBC APTT (22.0-30.0) sec ABG pCO2 (35-45) mmHg ABG pO2 (83-108) mmHg ABG HCO3 (21-25) mmol/L ABG Total CO2 (19-24) mmol/L ABG O2 Saturation (94-97) % Chloride (98-107) mmol/L Carbon Dioxide (22-30) mmol/L BUN (9-20) mg/dL Glucose (74-99) mg/dL POC Glucose (mg/dL) 183 H (75-99) mg/dL AST (17-59) U/L ALT (4-49) U/L Total Protein (6.3-8.2) g/dL Triglycerides 786 H (<150) mg/dL HDL Cholesterol 98 H (40-60) mg/dL 11/21/19 11/21/19 11/21/19 Range/Units 14:41 17:20 17:46 WBC (3.8-10.6) k/uL RBC (4.30-5.90) m/uL Hgb (13.0-17.5) gm/dL Hct (39.0-53.0) % MCV (80.0-100.0) fL Plt Count (150-450) k/uL Neutrophils # (Manual) (1.3-7.7) k/uL Lymphocytes # (Manual) (1.0-4.8) k/uL Metamyelocytes # (Man) (0) k/uL Nucleated RBCs (0-0) /100 WBC APTT (22.0-30.0) sec ABG pCO2 (35-45) mmHg ABG pO2 (83-108) mmHg ABG HCO3 (21-25) mmol/L ABG Total CO2 (19-24) mmol/L ABG O2 Saturation (94-97) % Chloride (98-107) mmol/L Carbon Dioxide (22-30) mmol/L BUN (9-20) mg/dL Glucose (74-99) mg/dL POC Glucose (mg/dL) 167 H 164 H 158 H (75-99) mg/dL AST (17-59) U/L ALT (4-49) U/L Total Protein (6.3-8.2) g/dL Triglycerides (<150) mg/dL HDL Cholesterol (40-60) mg/dL 11/21/19 11/21/19 11/21/19 Range/Units 20:28 20:59 22:34 WBC (3.8-10.6) k/uL RBC (4.30-5.90) m/uL Hgb (13.0-17.5) gm/dL Hct (39.0-53.0) % MCV (80.0-100.0) fL Plt Count (150-450) k/uL Neutrophils # (Manual) (1.3-7.7) k/uL Lymphocytes # (Manual) (1.0-4.8) k/uL Metamyelocytes # (Man) (0) k/uL Nucleated RBCs (0-0) /100 WBC APTT (22.0-30.0) sec ABG pCO2 (35-45) mmHg ABG pO2 (83-108) mmHg ABG HCO3 (21-25) mmol/L ABG Total CO2 (19-24) mmol/L ABG O2 Saturation (94-97) % Chloride (98-107) mmol/L Carbon Dioxide (22-30) mmol/L BUN (9-20) mg/dL Glucose (74-99) mg/dL POC Glucose (mg/dL) 129 H 141 H 120 H (75-99) mg/dL AST (17-59) U/L ALT (4-49) U/L Total Protein (6.3-8.2) g/dL Triglycerides (<150) mg/dL HDL Cholesterol (40-60) mg/dL 11/21/19 11/22/19 11/22/19 Range/Units 23:01 00:32 01:13 WBC (3.8-10.6) k/uL RBC (4.30-5.90) m/uL Hgb (13.0-17.5) gm/dL Hct (39.0-53.0) % MCV (80.0-100.0) fL Plt Count (150-450) k/uL Neutrophils # (Manual) (1.3-7.7) k/uL Lymphocytes # (Manual) (1.0-4.8) k/uL Metamyelocytes # (Man) (0) k/uL Nucleated RBCs (0-0) /100 WBC APTT (22.0-30.0) sec ABG pCO2 (35-45) mmHg ABG pO2 (83-108) mmHg ABG HCO3 (21-25) mmol/L ABG Total CO2 (19-24) mmol/L ABG O2 Saturation (94-97) % Chloride (98-107) mmol/L Carbon Dioxide (22-30) mmol/L BUN (9-20) mg/dL Glucose (74-99) mg/dL POC Glucose (mg/dL) 122 H 176 H 181 H (75-99) mg/dL AST (17-59) U/L ALT (4-49) U/L Total Protein (6.3-8.2) g/dL Triglycerides (<150) mg/dL HDL Cholesterol (40-60) mg/dL 11/22/19 11/22/19 11/22/19 Range/Units 02:17 02:52 03:41 WBC (3.8-10.6) k/uL RBC (4.30-5.90) m/uL Hgb (13.0-17.5) gm/dL Hct (39.0-53.0) % MCV (80.0-100.0) fL Plt Count (150-450) k/uL Neutrophils # (Manual) (1.3-7.7) k/uL Lymphocytes # (Manual) (1.0-4.8) k/uL Metamyelocytes # (Man) (0) k/uL Nucleated RBCs (0-0) /100 WBC APTT (22.0-30.0) sec ABG pCO2 (35-45) mmHg ABG pO2 (83-108) mmHg ABG HCO3 (21-25) mmol/L ABG Total CO2 (19-24) mmol/L ABG O2 Saturation (94-97) % Chloride (98-107) mmol/L Carbon Dioxide (22-30) mmol/L BUN (9-20) mg/dL Glucose (74-99) mg/dL POC Glucose (mg/dL) 174 H 149 H 143 H (75-99) mg/dL AST (17-59) U/L ALT (4-49) U/L Total Protein (6.3-8.2) g/dL Triglycerides (<150) mg/dL HDL Cholesterol (40-60) mg/dL 11/22/19 11/22/19 11/22/19 Range/Units 04:22 04:47 04:47 WBC 16.0 H (3.8-10.6) k/uL RBC 3.03 L (4.30-5.90) m/uL Hgb 10.2 L (13.0-17.5) gm/dL Hct 31.9 L (39.0-53.0) % MCV 105.3 H (80.0-100.0) fL Plt Count 146 L (150-450) k/uL Neutrophils # (Manual) 15.30 H (1.3-7.7) k/uL Lymphocytes # (Manual) 0.32 L (1.0-4.8) k/uL Metamyelocytes # (Man) 0.32 H (0) k/uL Nucleated RBCs 1 H (0-0) /100 WBC APTT (22.0-30.0) sec ABG pCO2 (35-45) mmHg ABG pO2 (83-108) mmHg ABG HCO3 (21-25) mmol/L ABG Total CO2 (19-24) mmol/L ABG O2 Saturation (94-97) % Chloride 111 H (98-107) mmol/L Carbon Dioxide 31 H (22-30) mmol/L BUN 34 H (9-20) mg/dL Glucose 122 H (74-99) mg/dL POC Glucose (mg/dL) 120 H (75-99) mg/dL AST 87 H (17-59) U/L ALT 84 H (4-49) U/L Total Protein 6.1 L (6.3-8.2) g/dL Triglycerides (<150) mg/dL HDL Cholesterol (40-60) mg/dL 11/22/19 11/22/19 11/22/19 Range/Units 04:50 06:15 07:06 WBC (3.8-10.6) k/uL RBC (4.30-5.90) m/uL Hgb (13.0-17.5) gm/dL Hct (39.0-53.0) % MCV (80.0-100.0) fL Plt Count (150-450) k/uL Neutrophils # (Manual) (1.3-7.7) k/uL Lymphocytes # (Manual) (1.0-4.8) k/uL Metamyelocytes # (Man) (0) k/uL Nucleated RBCs (0-0) /100 WBC APTT (22.0-30.0) sec ABG pCO2 54 H (35-45) mmHg ABG pO2 51 L* (83-108) mmHg ABG HCO3 31 H (21-25) mmol/L ABG Total CO2 32 H (19-24) mmol/L ABG O2 Saturation 85.7 L (94-97) % Chloride (98-107) mmol/L Carbon Dioxide (22-30) mmol/L BUN (9-20) mg/dL Glucose (74-99) mg/dL POC Glucose (mg/dL) 125 H 106 H (75-99) mg/dL AST (17-59) U/L ALT (4-49) U/L Total Protein (6.3-8.2) g/dL Triglycerides (<150) mg/dL HDL Cholesterol (40-60) mg/dL 11/22/19 11/22/19 11/22/19 Range/Units 07:10 10:55 10:57 WBC (3.8-10.6) k/uL RBC (4.30-5.90) m/uL Hgb (13.0-17.5) gm/dL Hct (39.0-53.0) % MCV (80.0-100.0) fL Plt Count (150-450) k/uL Neutrophils # (Manual) (1.3-7.7) k/uL Lymphocytes # (Manual) (1.0-4.8) k/uL Metamyelocytes # (Man) (0) k/uL Nucleated RBCs (0-0) /100 WBC APTT 20.9 L (22.0-30.0) sec ABG pCO2 (35-45) mmHg ABG pO2 (83-108) mmHg ABG HCO3 (21-25) mmol/L ABG Total CO2 (19-24) mmol/L ABG O2 Saturation (94-97) % Chloride (98-107) mmol/L Carbon Dioxide (22-30) mmol/L BUN (9-20) mg/dL Glucose (74-99) mg/dL POC Glucose (mg/dL) 141 H 164 H (75-99) mg/dL AST (17-59) U/L ALT (4-49) U/L Total Protein (6.3-8.2) g/dL Triglycerides (<150) mg/dL HDL Cholesterol (40-60) mg/dL Microbiology - Last 24 Hours (Table) 11/21/19 07:08 Blood Culture - Preliminary Blood No Growth after 24 hours 11/21/19 07:10 Blood Culture - Preliminary Blood No Growth after 24 hours 11/19/19 17:38 Blood Culture - Preliminary Blood No Growth after 48 hours 11/19/19 17:45 Blood Culture - Preliminary Blood No Growth after 48 hours 11/20/19 23:29 Gram Stain - Preliminary Sputum Sputum Culture - Preliminary Assessment and Plan Assessment: Impression: Postoperative hypoxic respiratory failure, secondary to acute bronchospasm , possible aspiration pneumonia, and ARDS, with extreme difficulty ventilating the patient. Status post bronchoscopy and lavage of the right lung done on 11/22/19, around 3 AM for complete collapse of the left lung and mucous plugging in the right mainstem bronchus. Acute asthma exacerbation. History of mild persistent asthma Status post laparoscopic repair of ventral incisional hernia postoperative day #3 History of chronic liver disease, related to alcohol abuse and related to hepatitis C. History of ascites secondary to underlying liver disease. Repeat ultrasound today showed minimal ascites. History of alcohol abuse. History of nicotine dependence. Morbid obesity with body mass index of 41.6. Anemia, most likely secondary to intra-abdominal blood loss, responded to one unit of packed RBCs given yesterday. And hemoglobin has been stable since. Recommendation: Continue ventilatory support. Adjust PEEP accordingly. Patient is now on 12 of PEEP, had poor oxygenation with higher PEEP. Continue Bronchodilators in the form of albuterol, Atrovent, Pulmicort, and Perforomist. Continue IV Solu-Medrol, dose was increased again to 100 mg IV push every 6 julián rs. Consider physical feeding/enteral feedings. Antibiotics Zosyn and vancomycin remain on board. GI prophylaxis. DVT prophylaxis. Continue to monitor in the ICU. Discussed the patient's condition with the ECMO team at the [facility], requested rapid PCR for coronavirus, and if negative, patient will likely be transferred to the [facility] today, they felt that the patient could be transferred with the appropriate team on board on the flight, in spite of his marginal ABG. Requested that the patient remains paralyzed and sedated fully. Patient is again extremely critically ill, and hopefully will consider getting him transferred for ECMO at the [facility]. Prognosis is again poor and guarded. Critical care time is 45 minutes Time with Patient: Greater than 30
--- NOTE | 2019-11-22 12:35 | P.DS ---
Providers Date of admission: 11/19/19 11:30 Expected date of discharge: 11/22/19 Attending physician: Carlito Alvares Consults: 11/19/19 11:45 Consult Physician Routine Consulting Provider: Leyla Spivey Consult Reason/Comments: Medical management Do you want consulting provider notified?: Yes 11/19/19 12:07 Consult Physician Routine Consulting Provider: Kati Alas Consult Reason/Comments: respiratory distress Do you want consulting provider notified?: Already Contacted 11/21/19 08:29 Consult Physician Urgent Consulting Provider: Laura Mills Consult Reason/Comments: acute kidney injury Do you want consulting provider notified?: Yes 11/21/19 12:59 Consult Physician Routine Consulting Provider: Alex Corona Consult Reason/Comments: sepsis Do you want consulting provider notified?: Yes Primary care physician: Merry Pérez Hospital Course: Discharge diagnosis Status post Laparoscopic robotic system repair of incarcerated incisional hernia And Partial omentectomy. Postop day #3 Postoperative hypoxic respiratory failure secondary to acute bronchospasm, possible aspiration and ARDS Status post bronchoscopy and lavage of the right lung done on 11/22/19, around 3 AM for complete collapse of the left lung and mucous plugging in the right mainstem bronchus. Acute asthma exacerbation. History of mild persistent asthma History of chronic liver disease, related to alcohol abuse and related to hepatitis C. History of ascites secondary to underlying liver disease. Repeat ultrasound today showed minimal ascites. History of alcohol abuse. History of nicotine dependence. Morbid obesity with body mass index of 41.6. Anemia, most likely secondary to intra-abdominal blood loss, responded to one unit of packed RBCs given yesterday. And hemoglobin has been stable since. Hospital course This is a 29-year-old male who Had a incisional ventral hernia. He is status post Laparoscopic robotic system repair of incarcerated incisional hernia And Partial omentectomy. Postoperatively patient was extubated but he had to be reintubated mostly because he developed significant bronchospasm and abnormal chest x-ray showing pulmonary vascular congestion and airspace opacities of bilateral upper lobe. Patient was seen by critical care service. Patient was transferred to the ICU. Patient has been on mechanical ventilation and sedated. He has not had improvement in his respiratory status. He required a bronchoscopy at 3 AM by the solid waste collector because he developed right lung collapse with deviation of the trachea to the right side And was found to have mucus plugging. Patient's overall condition has not improved. Critical care service has recommended a transfer to [facility] for possible ECMO treatment. There is a bed available at [facility] Patient will be transferred [facility] today for a cough treatment. Patient is stable for transfer.Please refer to chart for any further details. Physician Taxi Cab Driver note has been reviewed by physician. Signing provider agrees with the documented findings, assessment, and plan of care. Patient Condition at Discharge: Stable Plan - Discharge Summary Discharge Rx Participant: No New Discharge Prescriptions: New Docusate [Colace] 100 mg PO BID #20 capsule Ibuprofen [Motrin] 600 mg PO Q6HR PRN #40 tab PRN Reason: Pain oxyCODONE HCL [OxyIR] 5 mg PO Q4H PRN 3 Days #18 tab PRN Reason: Pain Acetaminophen Tab [Tylenol] 650 mg PO Q6H #30 tab No Action Ipratropium-Albuterol Nebulize [Duoneb 0.5 mg-3 mg/3 ml Soln] 3 ml INHALATION RT-Q6H PRN PRN Reason: wheezing/shortness of breath Albuterol Sulfate [Proair Hfa] 2 puff INHALATION RT-Q6H PRN PRN Reason: Shortness Of Breath Discharge Medication List Albuterol Sulfate [Proair Hfa] 2 puff INHALATION RT-Q6H PRN 03/07/19 [History] Ipratropium-Albuterol Nebulize [Duoneb 0.5 mg-3 mg/3 ml Soln] 3 ml INHALATION RT-Q6H PRN 03/07/19 [History] Acetaminophen Tab [Tylenol] 650 mg PO Q6H #30 tab 11/19/19 [Rx] Docusate [Colace] 100 mg PO BID #20 capsule 11/19/19 [Rx] Ibuprofen [Motrin] 600 mg PO Q6HR PRN #40 tab 11/19/19 [Rx] oxyCODONE HCL [OxyIR] 5 mg PO Q4H PRN 3 Days #18 tab 11/19/19 [Rx] Follow up Appointment(s)/Referral(s): Carlito Alvares MD [STAFF PHYSICIAN] - 11/26/19 2:00 pm
[2019-11-22 12:53] LABS: Glucose,Whole Blood 159 mg/dL (75-99)
[2019-11-22 13:47] LABS: Glucose,Whole Blood 164 mg/dL (75-99)
--- NOTE | 2019-11-22 14:02 | PN ---
PROGRESS NOTE DATE OF SERVICE: 11/22/2019 This is a 29-year-old gentleman who was admitted after laparoscopic robotic incarcerated hernia surgery, had possible respiratory failure. The patient was mechanically intubated. Patient is currently on 450 at tidal volume 100, FiO2 of o10, 12 of PEEP. Despite that, patient is saturating only in the low 80s, 84%. Last night the patient was severe hypoxic also. Dr. Alas has evaluated the patient. The most recent chest x-ray was evaluated and the patient underwent bronchoscopy also. Because of severe hypoxia, Dr. Alas contacted [facility] and the patient will be transferred [facility] for further evaluation and treatment for possible ECMO. PAST MEDICAL HISTORY: Reviewed. REVIEW OF SYSTEMS: Could not be taken. The patient is on mechanical ventilation. CURRENT MEDICATIONS: 1. DuoNeb. 2. Pulmicort. 3. Peridex. 4. Clevidipine. 5. Catapres. 6. Fentanyl. 7. Perforomist. 8. Heparin. 9. Alprazolam. 10.midazolam. 11.Zosyn IV. 12.vancomycin. Doses reviewed. PHYSICAL EXAMINATION: The patient is mechanically ventilated and sedated. Pulse is 138, blood pressure is 140/55, respiration 38, temperature 100.2, pulse ox is 82% on 100% mechanical ventilation. Vent settings are noted. HEENT: Conjunctivae normal, oral mucosa moist. NECK: No jugular venous distention. No lymph node enlargement. CARDIOVASCULAR SYSTEM: S1, S2, muffled. RESPIRATION: Breath sounds diminished at the bases, a few scattered rhonchi, no crackles. ABDOMEN: Soft, obese, nontender. No mass palpable. LEGS: No edema, no cyanosis, no focal deficits. LABS: ABGs have pH of 7.36. Other labs are noted. WBC 16, hemoglobin is 10.2. The cultures are negative so far. ASSESSMENT: 1. Status post laparoscopic robotic assisted repair of incarcerated incisional hernia and partial omentectomy. 2. Acute hypoxic hypercarbic respiratory failure, possibly secondary bronchial asthma, acute exacerbation, aspiration pneumonia and atelectasis. 3. Possibly ARDS. 4. Severe hypoxemia. 5. Mild hyperkalemia. 6. Acute renal failure, acute tubular necrosis, on mechanical ventilation. 7. Acute delirium tremens, possibly. 8. Possible sepsis present on admission. 9. Sinus tachycardia. 10.Increased WBC. 11.Hyperlipidemia secondary to Diprivan or Cleviprex infusion. 12.Increased MCV. 13.Possible alcoholic hepatitis. 14.Hypomagnesemia. 15.Diabetes mellitus. 16.Obesity with body mass index of 38.8. 17.History of asthma. 18.History of chronic liver disease, possibly secondary to hepatitis C related to previous IV drug abuse. 19.History of generalized edema. 20.History of hernia repair. 21.History of nicotine dependence, continued ongoing. 22.History of hemorrhoids. 23.History of THC. 24.FULL CODE. RECOMMENDATION: In this 29-year-old gentleman who presented with multiple medical issues, at this time will monitor the patient closely. Continue with the current medication with a transfer to [facility] is being arranged. I would recommend to continue the antibiotics, steroids and the bronchodilators. COVID-19 testing is pending at this time. Prognosis guarded. Further recommendations to follow. MMBUTCHL / IJN: [id number] /
[2019-11-22 14:15] VITALS: PULSE 131; RESP 66
--- NOTE | 2019-11-22 17:47 | PN ---
PROGRESS NOTE Patient is seen for followup for acute kidney injury. Patient's urine output has picked up and his renal function has improved, with serum creatinine down to 0.9 mg/dL from 1.3 yesterday. Patient remains hypertensive, currently maintained on Cleviprex drip. He remains hypoxic and currently on FiO2 of 100%. There are plans to transfer the patient to [facility] for ECMO. On examination today, patient is sedated. Blood pressure 144/55, heart rate 66 per minute. He is afebrile. EXAMINATION OF THE HEART: S1 and S2. EXAMINATION OF LUNGS: Bilateral breath sounds are heard. ABDOMEN: Distended. Examination of lower extremities shows no significant edema. KITCHEN LEAD exam cannot be performed. Labs show hemoglobin 10.2, sodium 145, potassium 5.0, chloride 111. CO2 is 31, BUN 34, creatinine 0.9. ASSESSMENT: 1. Acute kidney injury, acute tubular necrosis, currently resolved. 2. Hyperkalemia associated with acute kidney injury and possible underlying gastrointestinal bleed, currently improved. 3. Metabolic acidosis, non gap, status post bicarb drip. 4. Status post ventral hernia repair. 5. Hypoxia with hypoxic respiratory failure secondary to acute respiratory distress syndrome. 6. Severe asthma. PLAN: Discontinue bicarb drip. Add clonidine patch and try to wean down Cleviprex drip. MMODL / IJN: [id number] /
[2019-11-23] MEDS ORDERED: VANCOMYCIN TROUGH DUE 1 EACH MISC MISCELLANE ONE (18:00)
--- NOTE | 2019-11-25 10:31 | CDI ---
Documentation Clarification Form Date: 11/25/2019 10:12:17 AM From: Diane ToroBirminghamCRISTINA mathias, CCDS Admit Date: 11/19/2019 11:30:00 AM Patient Name: Douglas Chambers Visit Number: [id number] Discharge Date: 11/22/2019 04:03:00 PM ATTENTION: The Clinical Documentation Specialists (CDI) and [facility] Coding Staff appreciate your assistance in clarifying documentation. Please respond to the clarification below the line at the bottom and electronically sign. The CDI & [facility] Coding staff will review the response and follow-up if needed. Please note: Queries are made part of the Legal Health Record. If you have any questions, please contact the author of this message via ITS. Dr. Carlito Alvares: Postoperative hypoxic respiratory failure was documented in the 11/20 Pulmonary/Critical Care Consult: "....patient who did have a postop respiratory failure requiring ventilation support CT angiogram was negative for PE did shows bilateral consolidation right greater than left with concern for possible aspiration pneumonia..." History/Risk Factors: Asthma, Hepatitis C, Chronic liver disease, Morbid Obesity w/BMI 41.6, Current daily smoker. Clinical Indicators: Patient presented on 11/18 for an elective Incarcerated Incisional Hernia Repair. Patient was extubated postoperatively but was reintubated because he developed significant bronchospasm & CXR was abnormal showing pulmonary vascular and airspace opacities of bilateral upper lobes. 11/18 Procedure: Laparoscopic robotic repair of incarcerated incisional hernia, Partial Omentectomy. Returned to PACU in stable condition. VS 11/18: T 97.3, P 131^, R 16, BP 132/78, PO 95 RA - 96 2Lnc - 100 on vent. 11/18 Blood Gas ABG: pH 7.26*, pCO2 54^, pO2 79*, Total CO2 26^. 11/18 CXR: ET tube, Pulmonary vascular congestion & airspace opacities of the bilateral upper lungs. Treatment 11/18: RA - O2 2Lnc - Intubated & Vent. IV Cefazolin, IV Decadron, IV Lactated Ringers, IV Apresoline, INH Albuterol/Ipratropium, IV Propofol, IV Morphine Sulfate, IV Lasix, IV Nimbex, IV NaBicarb, IV Diprivan. In your professional opinion, can you please clarify if these findings signify one of the following conditions? The respiratory failure and mechanical ventilation were in a routinely expected timeframe and not a complication of the surgical procedure. The respiratory failure is a complication of surgical procedure The respiratory failure is related to the patients other conditions / co- morbidities and is not a complication of the surgical procedure. Other please specify Unable to determine (Last Revision: March 2019) The respiratory failure is related to the patients other conditions / co- morbidities and is not a complication of the surgical procedure. SAM
== END 2019-11-22 16:03 | disposition short-term general hospital (02) | DRG 353 ==
LOC: OR 07:18 → 2SICU 11:30
PROVIDERS: ADMIT Surgery; ATTEND Surgery
PROC: 0BH17EZ Insertion of Endotracheal Airway into Trachea, Via Natural or Artificial Opening (ICD-10-PCS; 2019-11-19)
PROC: 5A1945Z Respiratory Ventilation, 24-96 Consecutive Hours (ICD-10-PCS; 2019-11-19)
PROC: 02HV33Z Insertion of Infusion Device into Superior Vena Cava, Percutaneous Approach (ICD-10-PCS; 2019-11-19)
PROC: 0DBU4ZZ Excision of Omentum, Percutaneous Endoscopic Approach (ICD-10-PCS; principal; 2019-11-19 09:00)
PROC: 8E0W4CZ Robotic Assisted Procedure of Trunk Region, Percutaneous Endoscopic Approach (ICD-10-PCS; principal; 2019-11-19 09:00)
PROC: 0WUF4JZ Supplement Abdominal Wall with Synthetic Substitute, Percutaneous Endoscopic Approach (ICD-10-PCS; principal; 2019-11-19 09:00)
PROC: 30233N1 Transfusion of Nonautologous Red Blood Cells into Peripheral Vein, Percutaneous Approach (ICD-10-PCS; 2019-11-21)
PROC: 3E1F88Z Irrigation of Respiratory Tract using Irrigating Substance, Via Natural or Artificial Opening Endoscopic (ICD-10-PCS; 2019-11-22)
PROC: 0BC38ZZ Extirpation of Matter from Right Main Bronchus, Via Natural or Artificial Opening Endoscopic (ICD-10-PCS; 2019-11-22)
PROC: 0B9K8ZZ Drainage of Right Lung, Via Natural or Artificial Opening Endoscopic (ICD-10-PCS; 2019-11-22)
DX: K43.0 Incisional hernia with obstruction, without gangrene (principal); J69.0 Pneumonitis due to inhalation of food and vomit; A41.9 Sepsis, unspecified organism; N17.0 Acute kidney failure with tubular necrosis; J96.01 Acute respiratory failure with hypoxia; J45.32 Mild persistent asthma with status asthmaticus; J45.31 Mild persistent asthma with (acute) exacerbation; Z68.41 Body mass index [BMI] 40.0-44.9, adult; E87.2 Acidosis; F10.231 Alcohol dependence with withdrawal delirium; J98.19 Other pulmonary collapse; T17.590A Other foreign object in bronchus causing asphyxiation, initial encounter; J91.8 Pleural effusion in other conditions classified elsewhere; J98.11 Atelectasis; R18.8 Other ascites; F17.210 Nicotine dependence, cigarettes, uncomplicated; B18.2 Chronic viral hepatitis C; D50.0 Iron deficiency anemia secondary to blood loss (chronic); E11.9 Type 2 diabetes mellitus without complications; Z20.828 Contact with and (suspected) exposure to other viral communicable diseases; J39.8 Other specified diseases of upper respiratory tract; E66.01 Morbid (severe) obesity due to excess calories; E78.5 Hyperlipidemia, unspecified; T41.295A Adverse effect of other general anesthetics, initial encounter; T46.1X5A Adverse effect of calcium-channel blockers, initial encounter; E83.42 Hypomagnesemia; E86.9 Volume depletion, unspecified; E87.5 Hyperkalemia; K70.9 Alcoholic liver disease, unspecified; K76.0 Fatty (change of) liver, not elsewhere classified; Z82.49 Family history of ischemic heart disease and other diseases of the circulatory system; Z82.5 Family history of asthma and other chronic lower respiratory diseases; Z83.3 Family history of diabetes mellitus; F11.11 Opioid abuse, in remission; Z79.1 Long term (current) use of non-steroidal anti-inflammatories (NSAID)
CPT/HCPCS: 31624; 36415; 64488; 71045; 71275; 76705; 76942; 80053; 80061; 80306; 81001; 82805; 83036; 83605; 83735; 84132; 84478; 84484; 85025; 85027; 85379; 85610; 85730; 86850; 86900; 86901; 86920; 87040; 87070; 87086; 87205; 87635; 88302; 93306; 93970; 94002; 94003; 94640